=== PATIENT | male | born 1985 | race Caucasian/White ===

== ENCOUNTER 2018-05-06 01:49 | Emergency (ER) | payer MEDICARE, SELFPAY ==
[2018-05-06 01:49] VITALS: BP 195/127; PULSE 90; RESP 15; TEMP 36.7; O2SAT 95; BMI 31.6
--- NOTE | 2018-05-06 02:07 | ED.VISSUMM ---
- ER Visit Summary Date of Service: 05/06/18 Chief Complaint: [] Injury to right knee History of Present Illness: The patient is a 32 M right knee hour ago. His dog hit him from behind and he jumped to get out of the way and fell onto his right knee. He has tenderness isolated over the right knee with range of motion. He is able to walk but has pain with walking and trying to get up off the commode. No home treatment. No previous injury. Wanted to make sure it was okay Physical Examination: [] Vital signs reviewed General: Well-nourished well-developed Head: Normocephalic atraumatic Eyes: Pupils equal round and reactive to light extraocular movements intact ENT: TMs clear no hemotympanum no trauma Neck: Nontender full range of motion Cardiovascular: Regular rate rhythm no murmurs normal S1-S2 Respiratory: No distress clear to auscultation bilaterally chest nontender Abdomen: Soft nontender nondistended normal bowel sounds no masses Back: Nontender no CVA tenderness Extremities: No tenderness at rest to the right knee. Normal passive range of motion. Tenderness to the right patellar region with extreme flexion at 90? of the leg. Ligaments appear intact. No significant tenderness with stressing of the medial lateral ACL PCL. No swelling or deformity Skin: Normal color no trauma Neuro alert oriented cranial nerves II through XII intact normal strength sensation reflexes Test Results: [] Emergency Department Course and Treatment: [] Given ibuprofen. X-ray obtained of the knee. Is negative for fracture. Given Cirilo wrap. At this time I think he just bruised and sprained his knee. Of a low suspicion for ligament injury. He will follow-up as an outpatient if he continues to have pain Treatment Plan: [] Disposition: [] Impression: [] Right knee injury This note was generated with [employer] dictation software. It may contain incorrect words, spelling, and punctuation that were not noted in review of the chart prior to signing ED Disposition - Plan for ED Patient: Chief Complaint: Lower Extremity Injury Referrals: Care Physician,No Primary [Primary Care Provider] -
[2018-05-06] MEDS: Ibuprofen 600 MG Tablet PO (02:11)
--- NOTE | 2018-05-06 02:20 | RAD_ITS ---
STUDY: X-RAY - RIGHT KNEE REASON FOR EXAM: Male, 32 years old. Trauma. KNOCKED OVER BY DOG TECHNIQUE: 4 view(s) of the knee. COMPARISON: None. FINDINGS: Normal visualized distal femur. Normal visualized proximal tibia and fibula. Normal proximal tibiofibular articulation. Normal medial femorotibial compartment. Normal lateral femorotibial compartment. Normal patellofemoral articulation. The soft tissue structures are unremarkable. RAD/Knee 4 or More Views IMPRESSION: Normal x-ray examination of the knee. Electronically Signed: Kusum Haque MD at 3:16 EDT Tel , Service support ,
--- NOTE | 2018-05-06 02:38 | ED.DEP ---
ED Disposition - Plan for ED Patient: Disposition: Home or Assisted Living Chief Complaint: Lower Extremity Injury Instructions: ED Sprain Knee Referrals: Care Physician,No Primary [Primary Care Provider] - Allyssa Akins [NON-STAFF] -
[2018-05-06 02:48] VITALS: RESP 18
== END 2018-05-06 02:51 | disposition home or self-care (01) ==
PROVIDERS: Emergency Provider Emergency Medicine
DX: S89.91XA Unspecified injury of right lower leg, initial encounter (principal); E66.9 Obesity, unspecified; Z79.899 Other long term (current) drug therapy; W54.1XXA Struck by dog, initial encounter; Y93.89 Activity, other specified; Y92.89 Other specified places as the place of occurrence of the external cause; Y99.8 Other external cause status
CPT/HCPCS: 73564; 99283

== ENCOUNTER 2018-07-15 02:06 | Emergency (ER) | payer MEDICARE, SELFPAY ==
[2018-07-15 02:08] VITALS: BP 169/117; PULSE 94; RESP 18; TEMP 36.9; O2SAT 98; BMI 35.6
--- NOTE | 2018-07-15 02:49 | ED.VIS.GEN ---
History of Present Illness Chief Complaint: Sore Throat Informant: Patient Onset: Yesterday Context: Gradual Onset Timing: Continuous Quality: sore Location: entire throat, nonlateralizing Current Severity: Severe Maximum Severity: Severe Worsened by: swallowing Associated Symptoms: no fever or cough. pain radiates to both ears. no excessive fatigue. Narrative: No trouble breathing. No known sick contacts. - Past Medical History (1) HTN (hypertension) Status: Chronic (2) Pre-diabetes Status: Chronic (3) GERD (gastroesophageal reflux disease) Status: Chronic Past Medical History - Allergies and Home Meds Allergies/Adverse Reactions: Allergies latex Allergy (Verified 07/15/18 02:10) Hives lisinopril Allergy (Verified 07/15/18 02:10) Angioedema Primary Care Physician: Care Physician,No Primary [NON-STAFF] - Smoking Status: Former smoker Review of Systems General: Denies: Chills, Fever, Sweats Eyes: Denies: Visual changes - bilaterally, Diplopia ENT: Reports: Bilateral ear pain - and feeling like they are clogged, Sore throat. Denies: Rhinorrhea Cardiovascular: Denies: Chest pain Respiratory: Denies: Dyspnea, Cough Gastrointestinal: Denies: Abdominal pain, Nausea, Vomiting, Diarrhea Musculoskeletal: Reports: Neck pain - anterior sore. Denies: Back pain, Extremity Pain Skin: Denies: Rash, Wounds Physical Exam Vital Signs/Narrative: Vital Signs Temp Pulse Resp BP Pulse Ox 07/15/18 02:08 98.5 F 94 18 169/117 H 98 Inital Vital Signs reviewed: Yes General: Well nourished, Well developed Head: Normocephalic, Atraumatic Eyes: Perrl, EOMI ENT: Moist mucous membranes, No rhinorrhea, TM's clear - except effusion on right. nml EAC bilat., - - POP mildly erythemetous diffusely, no asymmetry, no exudates. no trismus. uvula midline. no stridor. Neck: Supple, - - anterior cervical/submandibular LAD and tenderness. no posterior LAD. Respiratory: No distress, Chest nontender Skin: Normal color, No rash, No Trauma Neurological: Alert, Oriented x3, Cranial nerves II-XII grossly intact, Normal Strength, Normal Sensation, Normal Gait Psychological: Normal affect Diagnostic/Tx/Re-eval - Medical Decision Making Rapid strep swab was performed by myself, and is negative. Culture is sent and pending, he is given a dose of Decadron, he states he has the means to check his blood sugar at home to ensure that it does not measurably change. Etiology is more likely viral given the test results, he is advised to follow-up as needed. Supportive care advised. ED Disposition - Plan for ED Patient: Disposition: Home or Assisted Living Chief Complaint: Sore Throat Diagnosis: Acute viral pharyngitis Instructions: ED Pharyngitis Viral Referrals: Yaakov Harrison MD [NON-STAFF] - 1 Week if not improving (or your own doctor, if you already have one)
[2018-07-15 03:37] VITALS: BP 156/105; PULSE 83; RESP 16; O2SAT 98
--- OUTSIDE RECORDS SUMMARY | 2018-09-08 18:11 | XMS RPT_ITS ---
:1985 Author Organization [facility] Care Team Providers Name Role Phone Primay Care Physicia, No Primary Care Unavailable Bryn Godinez Attending Unavailable LORETO GANN Attending Unavailable Brittnee Bush Referring Unavailable [facility]IN[facility], [facility] Primary Care Unavailable PROBLEMS PROBLEMS No Problem Records FoundPROCEDURES PROCEDURES No Procedure Records FoundRESULTS RESULTS GROUP A STREP BY Collected: 07/20/2018 Status: F Source: [place] PCR 5:19 PM [facility] REPOSITORY TYPE CODE TESTS RESULT OUT OF REFERENCE UNITS RANGE LAB GASSRC Throat Swab GAS Specimen Source LAB PCRGAS Negative for Group A Strep Group A PCR Streptococcus by PCR. Result Comment: This test was developed and its performance characteristics determined by [facility]'s Eric Roman [facility] Pathology [facility] Laboratory Medicine [place] ([facility]). It has not been cleared or approved by the FDA. [facility] is regulated under CLIA as qualified to perform high-complexity testing. This test is used for clinical purposes. It should not be regarded as inv estigational or for research. Performed By: #### GASPCR #### [facility] [address], [place] [address] PROGRESS Observed: 07/20/2018 Status: COMPLETED Source: [place] 3:11 PM [facility] REPOSITORY HNO ID: [id number] Author: Heber Dunham Service: (none) Author Type: Nurse Practitioner Type: Progress Notes Filed: 07/20/2018 3:32 PM Note Text: Subjective HPI HPI Aleksandra Taylor is a 32 year old male who presents today for CC of sore throat, ear pain. This started 1 day ago. Has tried nothing for relief. Symptoms are worsened by swallowing. Risk factors none known. Nonsmoker. Able to swallow fluids though painful. .Patient presents with: Acute Visit: sore throat with LEFT ear pain x 1 day PAST MEDICAL HISTORY Diagnosis Date - Depression - HTN (hypertension) - Schizophrenia (HCC) - Seasonal allergies PAST SURGICAL HISTORY Procedure Laterality Date - NONE ALLERGIES Latex MEDICATIONS lisinopril (PRINIVIL) 20 mg tablet Take 1 tablet by mouth twice daily. ranitidine (ZANTAC) 150 mg tablet Take 1 tablet by mouth twice daily. hydrochlorothiazide (HYDRODIURIL, ESIDRIX) 25 mg tablet Take 1 tablet by mouth once daily. perphenazine 8 mg tablet Take 1 tablet by mouth once daily. citalopram (CELEXA) 40 mg tablet Take 1 tablet by mouth once daily. albuterol HFA (VENTOLIN HFA) 90 mcg/actuation inhaler Inhale 2 Puffs as instructed every 4 hours as needed for Wheezing/Shortness of Breath. loratadine (CLARITIN) 10 mg tablet Take 1 tablet by mouth once daily. Blood Pressure Cuff - Home Use BLOOD PRESSURE CUFF FOR HOME USE. DX: LABILE BLOOD PRESSURE FAMILY HISTORY Problem Relation Age of Onset - other (fibromyalgia [Other]) Mother - Hypertension Father - other (diverticulitis [Other]) Father - other (depression [Other]) Father Social History Substance Use Topics - Smoking status: Former Smoker Packs/day: 0.25 Years: 3.00 Types: Cigarettes - Smokeless tobacco: Former User Quit date: 04/14/2012 - Alcohol use Yes Comment: occasionally Review of Systems Constitutional: Negative for chills, fever and weight loss. HENT: Positive for ear pain and sore throat. Negative for congestion and nosebleeds. Respiratory: Negative for cough, shortness of breath and wheezing. Musculoskeletal: Negative for neck pain. Skin: Negative for itching and rash. Objective Pulse 103, temperature 36.6 ?C (97.8 ?F), temperature source Left Tympanic, resp. rate 16, weight 118.2 kg (260 lb 9.6 oz), SpO2 97 %. Physical Exam Constitutional: He is oriented to person, place, and time and well-developed, well-nourished, and in no distress. Non-toxic appearance. He does not have a sickly appearance. No distress. HENT: Head: Normocephalic and atraumatic. Right Ear: Hearing, tympanic membrane, external ear and ear canal normal. Left Ear: Hearing, tympanic membrane, external ear and ear canal normal. Nose: Nose normal. Mouth/Throat: Uvula is midline and mucous membranes are normal. Posterior oropharyngeal erythema present. No oropharyngeal exudate, posterior oropharyngeal edema or tonsillar abscesses. Eyes: Pupils are equal, round, and reactive to light. Conjunctivae and lids are normal. Right eye exhibits no discharge. Left eye exhibits no discharge. No scleral icterus. Neck: Trachea normal and normal range of motion. Neck supple. Cardiovascular: Normal rate, regular rhythm and normal heart sounds. Pulmonary/Chest: Effort normal and breath sounds normal. Lymphadenopathy: He has no cervical adenopathy. Neurological: He is alert and oriented to person, place, and time. Skin: No rash noted. He is not diaphoretic. ASSESSMENT/PLAN: 1. Sore throat - ICD9: 462, ICD10: J02.9 - suspect viral - Rapid Strep negative in the office today and Throat culture pending - Discussed supportive care treatment with fluids, rest and analgesia. - The patient should follow up in 3-5 days if symptoms persist or worsen - Call back if drooling, increased temperature, symptoms of dehydration and/or still sick in one week -prednisone for severity of sore throat. - RAPID STREP TEST B/O - GROUP A STREPTOCOCCUS BY PCR - PREDNISONE 20 MG TABLET Prescription instructions reviewed with patient as applicable. Patient advised if symptoms do not improve or if symptoms worsen sooner, to contact the office for further evaluation by their primary care physician. Potential red flag symptoms discussed with the patient. Reviewed appropriate action plan to take if red flag symptoms occur. Patient agreeable to treatment plan. Heber Dunham APRN.COUNTY COURT JUDGE CNOV Observed: 07/20/2018 Status: COMPLETED Source: [place] 3:00 PM [facility] REPOSITORY [facility] ALEKSANDRA TAYLOR ([id number]) 1985 M CHT Date Time Provider Department 07/20/18 3:00 PM HEBER DUNHAM ([place]ER[place]) [facility] During your visit today, we recorded the following information about you: Temperature Pulse Respiration Weight 97.8 degrees 103/minute 16/minute 118.2 kg Heber Dunham APRN.CNP 07/20/2018 3:32 PM Signed Subjective HPI HPI Aleksandra Taylor is a 32 year old male who presents today for CC of sore throat, ear pain. This started 1 day ago. Has tried nothing for relief. Symptoms are worsened by swallowing. Risk factors none known. Nonsmoker. Able to swallow fluids though painful. .Patient presents with: Acute Visit: sore throat with LEFT ear pain x 1 day PAST MEDICAL HISTORY Diagnosis Date - Depression - HTN (hypertension) - Schizophrenia (HCC) - Seasonal allergies PAST SURGICAL HISTORY Procedure Laterality Date - NONE ALLERGIES Latex MEDICATIONS lisinopril (PRINIVIL) 20 mg tablet Take 1 tablet by mouth twice daily. ranitidine (ZANTAC) 150 mg tablet Take 1 tablet by mouth twice daily. hydrochlorothiazide (HYDRODIURIL, ESIDRIX) 25 mg tablet Take 1 tablet by mouth once daily. perphenazine 8 mg tablet Take 1 tablet by mouth once daily. citalopram (CELEXA) 40 mg tablet Take 1 tablet by mouth once daily. albuterol HFA (VENTOLIN HFA) 90 mcg/actuation inhaler Inhale 2 Puffs as instructed every 4 hours as needed for Wheezing/Shortness of Breath. loratadine (CLARITIN) 10 mg tablet Take 1 tablet by mouth once daily. Blood Pressure Cuff - Home Use BLOOD PRESSURE CUFF FOR HOME USE. DX: LABILE BLOOD PRESSURE FAMILY HISTORY Problem Relation Age of Onset - other (fibromyalgia [Other]) Mother - Hypertension Father - other (diverticulitis [Other]) Father - other (depression [Other]) Father Social History Substance Use Topics - Smoking status: Former Smoker Packs/day: 0.25 Years: 3.00 Types: Cigarettes - Smokeless tobacco: Former User Quit date: 04/14/2012 - Alcohol use Yes Comment: occasionally Review of Systems Constitutional: Negative for chills, fever and weight loss. HENT: Positive for ear pain and sore throat. Negative for congestion and nosebleeds. Respiratory: Negative for cough, shortness of breath and wheezing. Musculoskeletal: Negative for neck pain. Skin: Negative for itching and rash. Objective Pulse 103, temperature 36.6 ?C (97.8 ?F), temperature source Left Tympanic, resp. rate 16, weight 118.2 kg (260 lb 9.6 oz), SpO2 97 %. Physical Exam Constitutional: He is oriented to person, place, and time and well-developed, well-nourished, and in no distress. Non-toxic appearance. He does not have a sickly appearance. No distress. HENT: Head: Normocephalic and atraumatic. Right Ear: Hearing, tympanic membrane, external ear and ear canal normal. Left Ear: Hearing, tympanic membrane, external ear and ear canal normal. Nose: Nose normal. Mouth/Throat: Uvula is midline and mucous membranes are normal. Posterior oropharyngeal erythema present. No oropharyngeal exudate, posterior oropharyngeal edema or tonsillar abscesses. Eyes: Pupils are equal, round, and reactive to light. Conjunctivae and lids are normal. Right eye exhibits no discharge. Left eye exhibits no discharge. No scleral icterus. Neck: Trachea normal and normal range of motion. Neck supple. Cardiovascular: Normal rate, regular rhythm and normal heart sounds. Pulmonary/Chest: Effort normal and breath sounds normal. Lymphadenopathy: He has no cervical adenopathy. Neurological: He is alert and oriented to person, place, and time. Skin: No rash noted. He is not diaphoretic. ASSESSMENT/PLAN: 1. Sore throat - ICD9: 462, ICD10: J02.9 - suspect viral - Rapid Strep negative in the office today and Throat culture pending - Discussed supportive care treatment with fluids, rest and analgesia. - The patient should follow up in 3-5 days if symptoms persist or worsen - Call back if drooling, increased temperature, symptoms of dehydration and/or still sick in one week -prednisone for severity of sore throat. - RAPID STREP TEST B/O - GROUP A STREPTOCOCCUS BY PCR - PREDNISONE 20 MG TABLET Prescription instructions reviewed with patient as applicable. Patient advised if symptoms do not improve or if symptoms worsen sooner, to contact the office for further evaluation by their primary care physician. Potential red flag symptoms discussed with the patient. Reviewed appropriate action plan to take if red flag symptoms occur. Patient agreeable to treatment plan. STEPHANIE Dumont APRN.CNP 07/20/2018 3:26 PM Signed ASSESSMENT/PLAN: 1. Sore throat - ICD9: 462, ICD10: J02.9 - suspect viral - Rapid Strep negative in the office today and Throat culture pending - Discussed supportive care treatment with fluids, rest and analgesia. - The patient should follow up in 3-5 days if symptoms persist or worsen - Call back if drooling, increased temperature, symptoms of dehydration and/or still sick in one week - RAPID STREP TEST B/O - GROUP A STREPTOCOCCUS BY PCR - PREDNISONE 20 MG TABLET Referring Provider: SELF [200] Allergies As of Date: 07/20/2018 Noted Allergy Reaction LATEX 04/14/2015 4 - Hives 7 - Swelling Date Reviewed: 07/20/2018 Reviewed by: Heber (Kierra) - Fully Assessed Reason for Visit: Acute Visit [896] Cmt: sore throat with LEFT ear pain x 1 day Primary Visit Diagnosis:Sore throat [J02.9] Order(s):RAPID STREP TEST B/O [8463753] Order #: [id number] GROUP A STREPTOCOCCUS BY PCR [SQGASPCR] Order #: [id number] predniSONE (DELTASONE) 20 mg tabletTake 2 tablets by mouth once daily for 5 days.Disp: 10 tabletRfl: 0 Prescriptions as of 07/20/2018 Sig: RANITIDINE 150 MG TABLET Take 1 tablet by mouth twice * HYDROCHLOROTHIAZIDE 25 MG TAB* Take 1 tablet by mouth once d* PERPHENAZINE 8 MG TABLET Take 1 tablet by mouth once d* CITALOPRAM 40 MG TABLET Take 1 tablet by mouth once d* ALBUTEROL SULFATE HFA 90 MCG/* Inhale 2 Puffs as instructed * LORATADINE 10 MG TABLET Take 1 tablet by mouth once d* COMPOUNDED PRESCRIPTION BLOOD PRESSURE CUFF FOR HOME * PREDNISONE 20 MG TABLET Take 2 tablets by mouth once * Problem List As Of Date 07/20/2018 Noted Resolved HTN (hypertension) [I10] INVALID FOR* More... Depression, major, recurrent, mild (HCC) [F33.0]INVALID FOR* More... Schizophrenia (HCC) [F20.9] INVALID FOR* More... Obesity [E66.9] INVALID FOR* More... Asthma [J45.909] INVALID FOR* More... Other instructions from your clinician: ASSESSMENT/PLAN: 1. Sore throat - ICD9: 462, ICD10: J02.9 - suspect viral - Rapid Strep negative in the office today and Throat culture pending - Discussed supportive care treatment with fluids, rest and analgesia. - The patient should follow up in 3-5 days if symptoms persist or worsen - Call back if drooling, increased temperature, symptoms of dehydration and/or still sick in one week - RAPID STREP TEST B/O - GROUP A STREPTOCOCCUS BY PCR - PREDNISONE 20 MG TABLET Prescriptions ordered this encounter Disp Refills Start End PREDNISONE 20 MG TABLET 10 t* 0 07/20/2018 07/25/2018 Route: ORAL Sig: Take 2 tablets by mouth once daily for 5 days. Medications Discontinued During This Encounter lisinopril (PRINIVIL) 20 mg tablet 90 t* 3 06/16/2015 07/20/2018 Route: ORAL Sig: Take 1 tablet by mouth twice daily. Disc: Reason for discontinue is not on file. Encounter Status:Closed by HEBER DUNHAM CNP on 07/20/18 EMERGENCY DEPARTMENT Observed: 07/15/2018 Status: F Source: [place] SUMMARY 3:[address] [facility] REPOSITORY [facility] Medical Records Department [address] [place] [address] Emergency Department Summary 07/15/18 0249 MR#: [id number] Acct: [id number] Name: ALEKSANDRA TAYLOR Rep #: [id number] : 1985 32 From: Loreto Gann MD PCP: [facility] Status: REG ER History of Present Illness Chief Complaint: Sore Throat Informant: Patient Onset: Yesterday Context: Gradual Onset Timing: Continuous Quality: sore Location: entire throat, nonlateralizing Current Severity: Severe Maximum Severity: Severe Worsened by: swallowing Associated Symptoms: no fever or cough. pain radiates to both ears. no excessive fatigue. Narrative: No trouble breathing. No known sick contacts. - Past Medical History (1) HTN (hypertension) Status: Chronic (2) Pre-diabetes Status: Chronic (3) GERD (gastroesophageal reflux disease) Status: Chronic Past Medical History - Allergies and Home Meds Allergies/Adverse Reactions: Allergies latex Allergy (Verified 07/15/18 02:10) Hives lisinopril Allergy (Verified 07/15/18 02:10) Angioedema Primary Care Physician: Care Physician,No Primary [NON-STAFF] - Smoking Status: Former smoker Review of Systems General: Denies: Chills, Fever, Sweats Eyes: Denies: Visual changes - bilaterally, Diplopia ENT: Reports: Bilateral ear pain - and feeling like they are clogged, Sore throat. Denies: Rhinorrhea Cardiovascular: Denies: Chest pain Respiratory: Denies: Dyspnea, Cough Gastrointestinal: Denies: Abdominal pain, Nausea, Vomiting, Diarrhea Musculoskeletal: Reports: Neck pain - anterior sore. Denies: Back pain, Extremity Pain Skin: Denies: Rash, Wounds Physical Exam Vital Signs/Narrative: Vital Signs 07/15/18 02:08 98.5 F 94 18 169/117 H 98 Inital Vital Signs reviewed: Yes General: Well nourished, Well developed Head: Normocephalic, Atraumatic Eyes: Perrl, EOMI ENT: Moist mucous membranes, No rhinorrhea, TM's clear - except effusion on right. nml EAC bilat., - - POP mildly erythemetous diffusely, no asymmetry, no exudates. no trismus. uvula midline. no stridor. Neck: Supple, - - anterior cervical/submandibular LAD and tenderness. no posterior LAD. Respiratory: No distress, Chest nontender Skin: Normal color, No rash, No Trauma Neurological: Alert, Oriented x3, Cranial nerves II-XII grossly intact, Normal Strength, Normal Sensation, Normal Gait Psychological: Normal affect Diagnostic/Tx/Re-eval - Medical Decision Making Rapid strep swab was performed by myself, and is negative. Culture is sent and pending, he is given a dose of Decadron, he states he has the means to check his blood sugar at home to ensure that it does not measurably change. Etiology is more likely viral given the test results, he is advised to follow-up as needed. Supportive care advised. ED Disposition - Plan for ED Patient: Disposition: Home or Assisted Living Chief Complaint: Sore Throat Diagnosis: Acute viral pharyngitis Instructions: ED Pharyngitis Viral Referrals: Yaakov Harrison MD [NON-STAFF] - 1 Week if not improving (or your own doctor, if you already have one) What to do if you have Problems For any increased pain, shortness of breath, bleeding, nausea or vomiting, chest pain, or any unexpected problems, contact your Primary Care Provider. Call [facility] ([phone]) or report to the closest Emergency Room. Call 911 if necessary. 07/15/18 0332 <Electronically signed by Loreto Gann MD> Date Loreto Gann MD Cosigner Signature (If Indicated): Date CC: [facility] Observed: 07/15/2018 Status: F Source: [place] STREP A (THROAT 3:[address] [facility] RAPID [facility]) REPOSITORY Order Date: 07/15/18 Strep A Rapid Rapid Strep A Screen NEGATIVE A Disk (Conf. Cult) Negative for Strep Group A : All NEGATIVE screens will be confirmed with a culture. Performed By: #### [id number] #### [facility] [address] [place], [place], [address] EMERGENCY DEPARTMENT Observed: 05/06/2018 Status: F Source: [place] SUMMARY 6:[address] [facility] REPOSITORY [facility] Medical Records Department [address] [place] [address] Emergency Department Summary 05/06/18 0207 MR#: [id number] Acct: [id number] Name: ALEKSANDRA TAYLOR Rep #: [id number] : 1985 32 From: Bryn Godinez MD PCP: Care Physician, No Primary Status: DEP ER - ER Visit Summary Date of Service: 05/06/18 Chief Complaint: [] Injury to right knee History of Present Illness: The patient is a 32 M right knee hour ago. His dog hit him from behind and he jumped to get out of the way and fell onto his right knee. He has tenderness isolated over the right knee with range of motion. He is able to walk but has pain with walking and trying to get up off the commode. No home treatment. No previous injury. Wanted to make sure it was okay Physical Examination: [] Vital signs reviewed General: Well-nourished well-developed Head: Normocephalic atraumatic Eyes: Pupils equal round and reactive to light extraocular movements intact ENT: TMs clear no hemotympanum no trauma Neck: Nontender full range of motion Cardiovascular: Regular rate rhythm no murmurs normal S1-S2 Respiratory: No distress clear to auscultation bilaterally chest nontender Abdomen: Soft nontender nondistended normal bowel sounds no masses Back: Nontender no CVA tenderness Extremities: No tenderness at rest to the right knee. Normal passive range of motion. Tenderness to the right patellar region with extreme flexion at 90 of the leg. Ligaments appear intact. No significant tenderness with stressing of the medial lateral ACL PCL. No swelling or deformity Skin: Normal color no trauma Neuro alert oriented cranial nerves II through XII intact normal strength sensation reflexes Test Results: [] Emergency Department Course and Treatment: [] Given ibuprofen. X-ray obtained of the knee. Is negative for fracture. Given Cirilo wrap. At this time I think he just bruised and sprained his knee. Of a low suspicion for ligament injury. He will follow- up as an outpatient if he continues to have pain Treatment Plan: [] Disposition: [] Impression: [] Right knee injury This note was generated with [employer] dictation software. It may contain incorrect words, spelling, and punctuation that were not noted in review of the chart prior to signing ED Disposition - Plan for ED Patient: Chief Complaint: Lower Extremity Injury Referrals: Care Physician,No Primary [Primary Care Provider] - What to do if you have Problems For any increased pain, shortness of breath, bleeding, nausea or vomiting, chest pain, or any unexpected problems, contact your Primary Care Provider. Call Doctors [facility] ([phone]) or report to the closest Emergency Room. Call 911 if necessary. 05/06/18 0638 <Electronically signed by Bryn Godinez MD> Date Bryn Godinez MD Cosigner Signature (If Indicated): Date CC: No Primary Care Physician DISCHARGE INSTRUCTION Observed: 05/06/2018 Status: F Source: [place] 6:[address] [facility] REPOSITORY [facility] Medical Records Department [address] [place] [address] Discharge Instruction 05/06/18 0238 MR#: [id number] Acct: [id number] Name: ALEKSANDRA TAYLOR Rep #: [id number] : 1985 32 From: Bryn Godinez MD PCP: Care Physician, No Primary Status: DEP ER ED Disposition - Plan for ED Patient: Disposition: Home or Assisted Living Chief Complaint: Lower Extremity Injury Instructions: ED Sprain Knee Referrals: Care Physician,No Primary [Primary Care Provider] - [facility] [NON-STAFF] - What to do if you have Problems For any increased pain, shortness of breath, bleeding, nausea or vomiting, chest pain, or any unexpected problems, contact your Primary Care Provider. Call [facility] ([phone]) or report to the closest Emergency Room. Call 911 if necessary. 05/06/18 0638 <Electronically signed by Bryn Godinez MD> Date Bryn Godinez MD Cosigner Signature (If Indicated): Date CC: No Primary Care Physician KNEE 4 OR MORE Observed: 05/06/2018 Status: F Source: [place] VIEWS 2:[address] [facility] Imaging Services [address] [place] [address] Knee 4 or More Views MR#: [id number] Acct: [id number] Name: ALEKSANDRA TAYLOR Rep #: [id number] : 1985 M 32 From: Kusum Haque MD PCP: Care Physician, No Primary Status: DEP ER Study: Knee 4 or More Views Date of Exam: 05/06/18 Exam# [id number] Ordering Dr: Bryn Godinez MD STUDY: X-RAY - RIGHT KNEE REASON FOR EXAM: Male, 32 years old. Trauma. KNOCKED OVER BY DOG TECHNIQUE: 4 view(s) of the knee. COMPARISON: None. FINDINGS: Normal visualized distal femur. Normal visualized proximal tibia and fibula. Normal proximal tibiofibular articulation. Normal medial femorotibial compartment. Normal lateral femorotibial compartment. Normal patellofemoral articulation. The soft tissue structures are unremarkable. RAD/Knee 4 or More Views IMPRESSION: Normal x-ray examination of the knee. Electronically Signed: Kusum Haque MD at 3:16 EDT Tel , Service support , CC: No Primary Care Physician; Bryn Godinez MD Owner: Signed PROGRESS Observed: 01/26/2018 Status: COMPLETED Source: [place] 1:43 PM [facility] [place] REPOSITORY HNO ID: [id number] Author: Yary Morgan Cma Service: (none) Author Type: (none) Type: Progress Notes Filed: 01/26/2018 1:44 PM Note Text: I spoke with Aleksandra and he states he has a different Physician now. Dr. Sena removed as PCP. PROGRESS Observed: 01/26/2018 Status: COMPLETED Source: [place] 1:40 PM [facility] [place] REPOSITORY HNO ID: [id number] Author: Yary Morgan Cma Service: (none) Author Type: (none) Type: Progress Notes Filed: 01/26/2018 1:44 PM Note Text: PHMA TEAMLET DOCUMENTATION Provider Action/FYI: Please file labs and advise if wanting additional. PSR Action/FYI: Teamlet has identified patient by name and date of . Team: Dr. Nathen Bedoya Myself ? Last Office Visit:Visit date not found ? Next Office Visit: Visit date not found ? Last BP/Labs: Blood Pressure: Last 3 Encounter BP Readings: Date: BP: 06/16/2015 166/110[jacky bp average[ 04/14/2015 150/90 Lipids: Cholesterol, Total (mg/dL) Date Value 06/27/2015 166 HDL Cholesterol (mg/dL) Date Value 06/27/2015 29 LDL Cholesterol (mg/dL) Date Value 06/27/2015 115 LDL Chol, Jared (mg/dL) Date Value 05/27/2009 124 Triglyceride (mg/dL) Date Value 06/27/2015 112 HGB A1C: No results found for: HBA1C TSH: TSH (uIU/mL) Date Value 01/05/2016 1.74 ) Care Gap: Asthma HTN Plan: ? Confirm PCP / Status ? Type of appointment needed: Physical next available with labs prior. Labs, HM and Immunization: Health Maintenance Due: DTAP,TDAP,TD(1 - Tdap) due on 11/25/2003 Yary Morgan Cma CNPTOUTREACH Observed: 01/26/2018 Status: COMPLETED Source: [place] 12:00 AM [facility] REPOSITORY Patient Outreach ([facility]) ALEKSANDRA TAYLOR ([id number]) 1985 M CHT Date Time Provider Department 01/26/18 YARY MORGAN) [facility] During your visit today, we recorded the following information about you: Yary Morgan Cma 01/26/2018 1:44 PM Signed PHMA TEAMLET DOCUMENTATION Provider Action/FYI: Please file labs and advise if wanting additional. PSR Action/FYI: Teamlet has identified patient by name and date of . Team: Dr. Nathen Bedoya Myself ? Last Office Visit:Visit date not found ? Next Office Visit: Visit date not found ? Last BP/Labs: Blood Pressure: Last 3 Encounter BP Readings: Date: BP: 06/16/2015 166/110[jacky bp average[ 04/14/2015 150/90 Lipids: Cholesterol, Total (mg/dL) Date Value 06/27/2015 166 HDL Cholesterol (mg/dL) Date Value 06/27/2015 29 LDL Cholesterol (mg/dL) Date Value 06/27/2015 115 LDL Chol, Jared (mg/dL) Date Value 05/27/2009 124 Triglyceride (mg/dL) Date Value 06/27/2015 112 HGB A1C: No results found for: HBA1C TSH: TSH (uIU/mL) Date Value 01/05/2016 1.74 ) Care Gap: Asthma HTN Plan: ? Confirm PCP / Status ? Type of appointment needed: Physical next available with labs prior. Labs, HM and Immunization: Health Maintenance Due: DTAP,TDAP,TD(1 - Tdap) due on 11/25/2003 Yary Morgan [facility] Yary Morgan [facility] 01/26/2018 1:44 PM Signed I spoke with Aleksandra and he states he has a different Physician now. Dr. Sena removed as PCP. Allergies As of Date: 01/26/2018 Noted Allergy Reaction LATEX 04/14/2015 4 - Hives 7 - Swelling Date Reviewed: 06/16/2015 Reviewed by: Elke Allen LPN - Fully Assessed Reason for Visit: PHMA/Care Gap Outreach [[id number]] Primary Visit Diagnosis:Essential hypertension [I10] Prescriptions as of 01/26/2018 Sig: LISINOPRIL 20 MG TABLET Take 1 tablet by mouth twice * RANITIDINE 150 MG TABLET Take 1 tablet by mouth twice * HYDROCHLOROTHIAZIDE 25 MG TAB* Take 1 tablet by mouth once d* PERPHENAZINE 8 MG TABLET Take 1 tablet by mouth once d* CITALOPRAM 40 MG TABLET Take 1 tablet by mouth once d* ALBUTEROL SULFATE HFA 90 MCG/* Inhale 2 Puffs as instructed * LORATADINE 10 MG TABLET Take 1 tablet by mouth once d* COMPOUNDED PRESCRIPTION BLOOD PRESSURE CUFF FOR HOME * Problem List As Of Date 01/26/2018 Noted Resolved HTN (hypertension) [I10] INVALID FOR* More... Depression, major, recurrent, mild (HCC) [F33.0]INVALID FOR* More... Schizophrenia (HCC) [F20.9] INVALID FOR* More... Obesity [E66.9] INVALID FOR* More... Asthma [J45.909] INVALID FOR* More... Encounter Status:Closed by YARY MORGAN CMA on 01/26/18 ALLERGIES ALLERGIES DATE TYPE / CODE NAME / CODE REACTION SEVERITY SOURCE 07/15/2018 Drug lisinopril/F Angioedema Unknown [facility] Allergy/4160 [id number](RX Hospital 35836(SNOMED NORM) Repository CT) 07/15/2018 Drug latex/[id number] Hives Unknown [facility] Allergy/4160 8921(RXNORM) Hospital 11829(SNOMED Repository CT) 04/14/2015 DRUG LATEX HIVES [facility] INGREDI/4195 [facility] [address](SNOMED Repository CT) ENCOUNTERS ENCOUNTERS ADMIT/DISCHARGE ACCOUNT ADMITTING ENCOUNTER LOCATION SOURCE NUMBER CLASS 07/20/2018/07/21/20 [id number] Ambulatory [address] Repository 07/15/2018/07/15/20 [id number] Emergency [address] ing:ED Repository 05/06/2018/05/06/20 [id number] Emergency [address] ing:ED Repository PAYERS PAYERS ENCOUNTER GUARANTOR PAYER SUBSCRIBER SOURCE 07/15/2018 Aleksandra Martinez Primary Aleksandra Ortega: Jared IHMARIFER Insurance[id number] A [facility] [address]Isj: (330) Number: Repository [phone] () [id number] Date:2018-07-15 07/15/2018 Secondary NOT GIVENUNK Jared Insurance:SELF PAY [facility] Number: Effective Repository Date:2018-07-15 05/06/2018 Aleksandra Lu [id number] Primary Aleksandra Tabitha NereydaB: [place] IHRIG Insurance:[facility]ICARE [id number] [address]Pvh: [phone]) Number: Repository [phone] ) [id number] Date:2018-05-06 05/06/2018 Secondary NOT GIVENUNK [place] Insurance:SELF PAY [facility] Number: Effective Repository Date:2018-05-06
== END 2018-07-15 03:38 | disposition home or self-care (01) ==
PROVIDERS: Emergency Provider Emergency Medicine; Referring Provider Nurse Practitioner Family
DX: J02.9 Acute pharyngitis, unspecified (principal); I10 Essential (primary) hypertension; K21.9 Gastro-esophageal reflux disease without esophagitis; Z87.891 Personal history of nicotine dependence
CPT/HCPCS: 87880; 99283

== ENCOUNTER 2019-09-13 18:27 | Emergency (ER) | payer MEDICARE, SELFPAY ==
[2019-09-13] VITALS (7 sets, daily range): BP systolic 154–207; BP diastolic 107–153; PULSE 77–98; RESP 14–18; TEMP 36.2; O2SAT 97–98; BMI 35.2
--- NOTE | 2019-09-13 19:39 | ED.DCSUM_ITS ---
- ER Visit Summary Date of Service: 09/13/19 Chief Complaint: Suicidal ideation History of Present Illness: The patient is a 33 M presenting with suicidal ideation. Patient states that this has been ongoing for several weeks but worsened today. He states he is under a lot of stress and has overwhelming th oughts. He has frequent fights with his friends and family. He has auditory hallucinations telling him to kill himself. He has a history of schizophrenia. He has plan to overdose on Tylenol or cut his wrists. He did not take his blood pressure medication today. Physical Examination: Vitals are stable. Blood pressure 207/153. Patient is afebrile. Alert no acute distress. HEENT exam is unremarkable. Neck is supple. Lungs are clear and equal bilaterally. Heart is regular rate and rhythm. Abdomen is soft nontender nondistended. Extremities are unremarkable. Skin is warm and dry. No focal neurologic deficit. Depressed affect with suicidal ideation Remainder of exam is unremarkable. Emergency Department Course and Treatment: Patient was given clonidine. CBC, chemistries unremarkable. Alcohol and tox are negative. He was given his home doses of blood pressure medications. Repeat blood pressure 162/111. Discussed with social work for evaluation. Disposition: Transfer Impression: Suicidal ideation, hypertension This note was generated with [employer] dictation software. It may contain incorrect words, spelling, and punctuation that were not noted in review of the chart prior to signing ED Disposition - Plan for ED Patient: Referrals: Allyssa Romero [Primary Care Provider] -
--- NOTE | 2019-09-13 19:39 | CM.ED ---
Social Work Consult: Suicidal Ideation Informant: Dr. Smith Chief Complaint: Patient stating to be having active suicidal thoughts and to not trust self at home alone. Patient stating if patient would be at home alone to be worried of what I would do to myself. Marital/Social History: Single Living Situation: Lives with patient mother and step-father. Support/Resources: Kiki. Patient sees counselor weekly. Patient last saw counselor yesterday. History: None. Education/Employment History: Disability due to mental health issues. Has been on disability for years. Mental Health Treatment/History: Schizophrenia and Depression. Patient does not take anything to manage medication due to medical complications after taking psychiatric medications. Patient stating to have not liked the way the depression medication made patient feel. Patient stating a history of inpatient psychiatric placements and believes that last placement was in 2017. Abuse Issues: Denies Substance Abuse History: Denies any abuse/use. Risk to self/others: Patient stating to have active suicidal thoughts with plan to cut self or crush pills to overdose. Patient denies taking steps to complete plan but voicing intent. Patient denies any history of attempting suicide. Patient stating I know my signs and get help. Patient denies any history of self harm behavior. Triggers/Stressors: Patient identifying life stressors. Mental Status Exam: A&Ox3 Appearance/General Behavior: Clean/Appropriate Mood/Affect: Pleasant Communication Pattern: Responds to questions. Thought Process: Patient stating to actively hear voices that are negative in nature and tell patient to complete suicide. Assessment: Met with patient and patient mother in room. Introduced self as well as pediatric social worker role. Patient agreeable to speaking with this pediatric social worker and wanting patient mother to stay in room during assessment. Patient stating to not feel safe to self and to have come to the hospital due to not being able to manage the voices telling patient to kill self. Patient stating to typically be able to manage voices by listening to self affirming videos/audios, playing video games, reading, and playing table top games with friends. Patient stating to have support from friends and family but to now always be open with how patient is feeling. Patient admitting to also not be open with counselor on how patient is feeling either. Active support and listening provided. Waiting for medical clearance and will collaborate with Dr. Smith from there. Selma Barbosa [employer]LEMENT[employer] SCHOOL SOCIAL WORKER, FOOD SPECIALIST
[2019-09-13] MEDS: cloNIDine HCl 0.2 MG Tablet PO (19:52)
[2019-09-13 20:00] LABS: Absolute Lymphocyte Count 3.42 X10^3/uL (0.83-4.51); Absolute Neutrophil Count 5.9 X10^3/uL (2.0-7.7); Basophil# 0.08 X10^3/uL; Basophil% 0.8 % (0-1); Eosinophil# 0.23 X10^3/uL; Eosinophils% 2.2 % (0-5); Hematocrit 50.4 % (40-54); Hemoglobin 16.2 g/dL (13.0-16.5); Lymphocyte # 3.42 X10^3/ul (4.0); Lymphocyte % 32.8 % (19-41); Mean Corp Hgb Conc 32.1 g/dL (32-36); Mean Corpuscular Volume 77.9 fL (80-94); Monocyte# 0.72 X10^3/uL; Monocyte% 6.9 % (0-10); NRBC Flagged by Analyzer 0 % (0-5); Neutrophil # 5.93 X10^3/uL (2.7-7.7); Neutrophil % 56.9 % (47-70); Platelet Count 233 K/mm3 (150-450); RBC Distribution Width CV 14.6 % (11.6-14.6); RBC Distribution Width SD 39.7 fl (35.1-43.9); Red Blood Count 6.47 M/mm3 (4.6-6.2); White Blood Count 10.4 K/mm3 (4.4-11.0)
[2019-09-13 20:15] LABS: Anion Gap 6 (5-15); BUN 14 mg/dL (7-18); BUN/Creat Ratio 11.2 RATIO (10-20); Calcium,Total 9.3 mg/dL (8.5-10.1); Chloride 106 mmol/L (98-107); Creatinine, Serum 1.25 mg/dL (0.70-1.30); EST Glomerular Filtration Rate 70 mL/min (>60); Est Glom Filt Rate - Afr Amer 85 mL/min (>60); Glucose 95 mg/dL (74-106); Potassium 3.6 mmol/L (3.5-5.1); Sodium Level 138 mmol/L (136-145)
[2019-09-13 20:20] LABS: Alcohol, Blood (Medical)-Serum < 3.0 mg/dL
[2019-09-13 21:04] LABS: Amphetamine Urine VISTA NEGATIVE (<1000 ng/mL); Barbiturate Urine VISTA NEGATIVE (< 200 ng/mL); Benzodiazepine Urine VISTA NEGATIVE (< 200 ng/mL); Cocaine Urine VISTA NEGATIVE (< 300 ng/mL); Ecstacy Urine VISTA NEGATIVE (< 500 ng/mL); Methadone Urine VISTA NEGATIVE (< 300 ng/mL); PCP Urine VISTA NEGATIVE (< 25 ng/mL); THC Urine VISTA NEGATIVE (< 50 ng/mL); Vista UDS pH Range 5
--- NOTE | 2019-09-13 21:12 | CM.ED ---
Social Work Result back. Telephone call to [facility], intake. Confirming that they accept patient insurance and there are open beds. Clinical information faxed. Selma ANDRES, PETROS
[2019-09-13] MEDS: hydroCHLOROthiazide 25 MG Tablet PO (21:51)
[2019-09-13] MEDS: Losartan Potassium 50 MG Tablet PO (21:51)
[2019-09-13] MEDS: Metoprolol Tartrate 100 MG Tablet PO (21:51)
--- NOTE | 2019-09-13 22:25 | CM.ED ---
Social Work Telephone call to [facility] to check on status of referral. Intake stating to have not received referral. Confirmed fax number as [phone] (this was the number that was used prior). [facility] advising this social service agency director to resend referral. Referral resent at this time. Pending approval. Selma ANDRES, PETROS
--- NOTE | 2019-09-13 23:21 | CM.ED ---
Social Work Telephone call from [place] , referral has been received and they are reviewing clinicals at this time. Update intake that end of social work day and to call main ED with outcome. ED number provided. PETROS Solis
[2019-09-14] VITALS (9 sets, daily range): BP systolic 142–162; BP diastolic 100–111; PULSE 72–78; RESP 14–18; O2SAT 97–99
[2019-09-14] MEDS: cloNIDine HCl 0.2 MG Tablet PO (00:34)
== END 2019-09-14 08:01 ==
PROVIDERS: Emergency Provider Emergency Medicine
DX: R45.851 Suicidal ideations (principal); I10 Essential (primary) hypertension; Z79.899 Other long term (current) drug therapy
CPT/HCPCS: 36415; 80048; 80307; 80320; 85025; 99285; G0480

== ENCOUNTER 2020-02-09 19:19 | Emergency (ER) | payer MEDICARE, MEDICAID, SELFPAY ==
[2019-09-13 18:28] VITALS: BMI 35.2
[2020-02-09 19:20] VITALS: BP 156/102; PULSE 89; RESP 15; TEMP 36.7; O2SAT 97; BMI 36.3
--- NOTE | 2020-02-09 19:44 | ED.VIS.PSYCH ---
History of Present Illness Chief Complaint: Suicidal Informant: Patient Onset: Days - several Context: Gradual Onset Conflict: Family Timing: Continuous Current Severity: Severe Maximum Severity: Severe Worsened by: Situational factors Associated Symptoms: Depressed, Change in sleeping, Guilt, Decreased Concentration, Hopelessness, Suicidal Thoughts. Negative for: Visual Hallucinations, Auditory Hallucinations Specific plan (suicidal thought): cut wrist Narrative: Patient states he is a bipolar patient takes his medication, and has been tasked with caring for his grandmother who has leukemia for this past week. He has not cared for her for 1 week yet, but in that amount of time he is getting no sleep, he states he is getting no break, no one else is helping him, and she is living with him. He told his family that he cannot mentally handle this, however they made me do it anyway. At this time since he is here to the hospital, his mother and [id number] are taking care of her, but they will make me do it if I go back home. He states last night he was considering slitting his wrist, he had a knife in his hand but did not do it. He was also having thoughts of harming her and he feels guilty for that. He states even if he goes home now, he is still considering harming himself and states that he is emotionally unstable. He denies doing any alcohol or illicit drugs. Denies any recent illnesses or physical symptoms at this time. - Past Medical History (1) Bipolar 1 disorder Status: Chronic (2) GERD (gastroesophageal reflux disease) Status: Chronic (3) HTN (hypertension) Status: Chronic (4) Pre-diabetes Status: Chronic Past Medical History - Allergies and Home Meds Allergies/Adverse Reactions: Allergies latex Allergy (Verified 02/09/20 19:24) Hives lisinopril Allergy (Verified 02/09/20 19:24) Angioedema Primary Care Physician: Allyssa Romero [Primary Care Provider] - Smoking Status: Former smoker Alcohol: None Drugs: None Review of Systems General: Denies: Chills, Fever, Sweats Eyes: Denies: Visual changes - bilaterally, Diplopia ENT: Denies: Rhinorrhea, Sore throat Cardiovascular: Denies: Chest pain, Palpitations Respiratory: Denies: Dyspnea, Cough, Dyspnea on exertion Gastrointestinal: Denies: Abdominal pain, Nausea, Vomiting, Diarrhea, Melena, Hematochezia Genitourinary: Denies: Dysuria, Hematuria, Frequency Musculoskeletal: Denies: Back pain, Extremity Pain Skin: Denies: Rash, Wounds Neurological: Denies: Headache, Weakness, Numbness Psych: Reports: Depression, Anxiety, Suicidal thoughts, Suicidal ideations Physical Exam Vital Signs/Narrative: Vital Signs Temp Pulse Resp BP Pulse Ox 02/09/20 19:20 98.0 F 89 15 156/102 H 97 Inital Vital Signs reviewed: Yes General: Well nourished, Well developed, Obese, - - NAD Head: Normocephalic, Atraumatic Eyes: Perrl, EOMI ENT: Moist mucous membranes, No rhinorrhea Neck: Supple, Nontender Cardiovascular: Regular rate, Regular rhythm, No murmurs Respiratory: No distress, CTA bilaterally, Chest nontender Abdomen: Soft, Nontender, Nondistended, Normal bowel sounds Back: Nontender, Normal Inspection Extremities: Nontender, No Edema Skin: Normal color, No rash Neurological: Alert, Oriented x3, Cranial nerves II-XII grossly intact, Normal Strength, Normal Sensation, Normal Gait Psych: Normal Speech Pattern, Logical sequential goal directed thoughts, Good Insight, Suicidal thoughts, Homicidal thoughts, Limited Judgement. Negative for: Hallucinations, Delusions Diagnostic/Tx/Re-eval Laboratory Results 02/09/20 02/09/20 02/09/20 19:53 19:53 19:53 WBC 11.3 H RBC 5.86 Hgb 14.8 Hct 45.8 MCV 78.2 L MCH 25.3 L MCHC 32.3 RDW Std Deviation 41.0 RDW Coeff of Preston 14.9 H Plt Count 236 MPV 11.4 Immature Gran % (Auto) 0.500 Neut % (Auto) 56.6 Lymph % (Auto) 32.3 [place] % (Auto) 7.5 Eos % (Auto) 2.3 Baso % (Auto) 0.8 Absolute Neuts (auto) 6.4 Absolute Lymphs (auto) 3.66 Nucleated RBC % 0 Sodium 138 Potassium 3.6 Chloride 103 Carbon Dioxide 28.0 Anion Gap 7 BUN 21 H Creatinine 1.52 H Estim Creat Clear Calc 74.45 Est GFR (MDRD) Af Amer 67 Est GFR (MDRD) Non-Af 56 L BUN/Creatinine Ratio 13.8 Glucose 102 Calcium 9.4 Total Bilirubin 0.40 AST 18 ALT 22 Alkaline Phosphatase 55 Total Protein 8.2 Albumin 3.9 Globulin 4.3 H Albumin/Globulin Ratio 0.9 Urine Opiates Screen Urine Methadone Screen Ur Barbiturates Screen Ur Phencyclidine Scrn Ur Amphetamines Screen U Methamphetamin-MDMA U Benzodiazepines Scrn Urine Cocaine Screen U Cannabinoids Screen Ur Drug Screen Comment Ethyl Alcohol < 3.0 02/09/20 20:15 WBC RBC Hgb Hct MCV MCH MCHC RDW Std Deviation RDW Coeff of Preston Plt Count MPV Immature Gran % (Auto) Neut % (Auto) Lymph % (Auto) Berrien % (Auto) Eos % (Auto) Baso % (Auto) Absolute Neuts (auto) Absolute Lymphs (auto) Nucleated RBC % Sodium Potassium Chloride Carbon Dioxide Anion Gap BUN Creatinine Estim Creat Clear Calc Est GFR (MDRD) Af Amer Est GFR (MDRD) Non-Af BUN/Creatinine Ratio Glucose Calcium Total Bilirubin AST ALT Alkaline Phosphatase Total Protein Albumin Globulin Albumin/Globulin Ratio Urine Opiates Screen NEGATIVE Urine Methadone Screen NEGATIVE Ur Barbiturates Screen NEGATIVE Ur Phencyclidine Scrn NEGATIVE Ur Amphetamines Screen NEGATIVE U Methamphetamin-MDMA NEGATIVE U Benzodiazepines Scrn NEGATIVE Urine Cocaine Screen NEGATIVE U Cannabinoids Screen NEGATIVE Ur Drug Screen Comment Ethyl Alcohol - Rhythm Strip Rhythm Strip: Sinus Rhythm Rate: 90 Ectopy: None Labs are unremarkable, patient's exam is unremarkable and he is medically cleared for crisis evaluation. Discussed with social work. Suspect based on his answers to the questions in the HPI that he will need further psychiatric evaluation tonight. Plan is for transfer for that reason. ED Disposition - Plan for ED Patient: Disposition: Psychiatric Hospital or Unit Diagnosis: Suicidal ideation, Bipolar 1 disorder Referrals: Tito Warner,Allyssa Akins [Primary Care Provider] -
[2020-02-09 20:06] LABS: Absolute Lymphocyte Count 3.66 X10^3/uL (0.83-4.51); Absolute Neutrophil Count 6.4 X10^3/uL (2.0-7.7); Basophil# 0.09 X10^3/uL; Basophil% 0.8 % (0-1); Eosinophil# 0.26 X10^3/uL; Eosinophils% 2.3 % (0-5); Hematocrit 45.8 % (40-54); Hemoglobin 14.8 g/dL (13.0-16.5); Lymphocyte # 3.66 X10^3/ul (4.0); Lymphocyte % 32.3 % (19-41); Mean Corp Hgb Conc 32.3 g/dL (32-36); Mean Corpuscular Hgb 25.3 pg (27.0-32.0); Mean Corpuscular Volume 78.2 fL (80-94); Mean Platelet Vol. 11.4 fl (6.2-12.0); Monocyte# 0.85 X10^3/uL; Monocyte% 7.5 % (0-10); NRBC Flagged by Analyzer 0 % (0-5); Neutrophil % 56.6 % (47-70); Platelet Count 236 K/mm3 (150-450); RBC Distribution Width CV 14.9 % (11.6-14.6); Red Blood Count 5.86 M/mm3 (4.6-6.2); White Blood Count 11.3 K/mm3 (4.4-11.0)
--- NOTE | 2020-02-09 20:14 | CM.ED ---
Social Work Consult: Suicidal Informant: Dr. hSin Chief Complaint: Patient states to be overwhelmed with caring for elderly grandmother. Patient states I just can't handle it anymore. Marital/Social History: Single Living Situation: Currently living with grandmother for the past week. Was living with mother and step-father prior to living with grandmother. Support/Resources: Kiki. Active with counseling services. Follows with [facility] for psychiatric/medication management. History: None. Education/Employment: Disability due to mental health reasons. Mental Health Treatment/History: Schizoaffective, Depression, Bi-Polar. Patient states to be compliant with medications and they were helping. Patient with last psychiatric placement in August 2019 to [facility]. Triggers/Stressors: Caring for elderly grandmother. Coping Skills: Playing video games and table top games. Not able to participate in coping skills since caring for grandmother. I only get short breaks. Abuse Issues: Denies Substance Abuse/Use: Denies Risk to Self/Others: Reports thought of suicide with plan to cut wrist. Patient states to have also had a thought of harming patient grandmother, this scared me. Patient states I have never had thoughts of harming others. Patient with no history of suicide attempts. Patient states I get help before I do anything. Patient states concern of following through with suicidal thoughts. Patient states to have sat with knife and cried last night. I was shacking. Mental Status Exam: A&Ox3 Appearance/General Behavior: Clean. Overwhelmed. Tearful. Mood/Affect: Depressed. Communication Pattern: Responds to questions. Thought Process: Denies any A/V hallucinations or paranoia. Judgement: Fair Assessment: Met with patient in room. Introduced self as well as foster care social worker role. Patient is agreeable to speaking with this foster care social worker. Patient states to have been informing patient mother that I can't do this and patient mother belittles the situation and says You can do it. Patient states I can't while becoming tearful. Patient states I am not set up mentally to be a caregiver. Patient states to have not been sleeping and to be having difficulty focusing. Patient states to have been eating junk. Patient states to be overwhelmed and is presenting as such. Active support and listening provided. Patient states that patient grandmother is dependent and not able to care for self at all. Patient states that patient mother and step-father are currently caring for patient grandmother as today was to be my day off. This foster care social worker exploring option of safety in the community for patient if patient parents would begin care fo patient grandmother, patient states it would get hostile when talking about relationship with parents. Patient states they would become passive aggressive. Patient does not feel safe to self in either situation of caring for grandmother or parents starting to care for grandmother. Collaborating with Dr. Shin. Recommending inpatient psychiatric placement. PLAN: Facilitate placement. Selma ANDRES, PETROS
[2020-02-09 20:27] LABS: ALB/GLOB Ratio 0.9 RATIO (0.9-2.4); AST(SGOT) 18 U/L (15-37); Alanine Aminotransfer ALT/SGPT 22 U/L (16-61); Albumin, Serum 3.9 g/dL (3.2-5.0); Alcohol, Blood (Medical)-Serum < 3.0 mg/dL; Alkaline Phosphatase 55 U/L (45-117); Anion Gap 7 (5-15); BUN 21 mg/dL (7-18); BUN/Creat Ratio 13.8 RATIO (10-20); Calcium,Total 9.4 mg/dL (8.5-10.1); Chloride 103 mmol/L (98-107); Creatinine, Serum 1.52 mg/dL (0.70-1.30); EST Glomerular Filtration Rate 56 mL/min (>60); Est Glom Filt Rate - Afr Amer 67 mL/min (>60); Estimated Creatinine Clearance 74.45 ml/min; Globulin 4.3 g/dL (2.2-4.2); Glucose 102 mg/dL (74-106); Potassium 3.6 mmol/L (3.5-5.1); Protein, Total 8.2 g/dL (6.4-8.2); Sodium Level 138 mmol/L (136-145)
[2020-02-09 20:55] LABS: Amphetamine Urine VISTA NEGATIVE (<1000 ng/mL); Barbiturate Urine VISTA NEGATIVE (< 200 ng/mL); Benzodiazepine Urine VISTA NEGATIVE (< 200 ng/mL); Cocaine Urine VISTA NEGATIVE (< 300 ng/mL); Ecstacy Urine VISTA NEGATIVE (< 500 ng/mL); Methadone Urine VISTA NEGATIVE (< 300 ng/mL); PCP Urine VISTA NEGATIVE (< 25 ng/mL); THC Urine VISTA NEGATIVE (< 50 ng/mL); Vista UDS pH Range 5
--- NOTE | 2020-02-09 21:06 | CM.ED ---
Social Work Telephone call to [place] , Intake. Referral faxed. Pending review. Selma ANDRES, PETROS
--- NOTE | 2020-02-09 21:37 | CM.ED ---
Social Work Telephone call to [facility], intake. Updated that it is end of Social work shift and provided [facility] with main ED number without come. Updated medical team. Semla Barbosa MSW, PETROS
[2020-02-09 22:22] VITALS: BP 162/99; PULSE 73; RESP 16; TEMP 36.3; O2SAT 96
[2020-02-09] MEDS: LURASIDONE HCL 40 MG TABLET PO (23:30)
[2020-02-09 23:32] VITALS: RESP 14
--- NOTE | 2020-02-10 00:13 | ED.RN ---
REPORT CALLED TO HENRRY BRAN AT 1659 ACCEPTED BY [facility]AREN KIRBY. INTAKE WAS UPDATED AT 0013 THAT THE PT WOULD NOT HAVE A RIDE UNTIL 729. MILL MANAGER VERBALIZES UNDERSTANDING.
[2020-02-10 01:19] VITALS: RESP 16
[2020-02-10 02:51] VITALS: BP 175/105; PULSE 69; RESP 18; TEMP 36.6; O2SAT 97
[2020-02-10 03:00] VITALS: RESP 15
[2020-02-10 04:00] VITALS: RESP 15
[2020-02-10 07:00] VITALS: RESP 15
[2020-02-10 07:40] VITALS: BP 172/90; PULSE 88; RESP 18; O2SAT 98
== END 2020-02-10 07:51 ==
PROVIDERS: Emergency Provider Emergency Medicine
DX: F31.9 Bipolar disorder, unspecified (principal); R45.851 Suicidal ideations; K21.9 Gastro-esophageal reflux disease without esophagitis; I10 Essential (primary) hypertension; R73.03 Prediabetes; Z79.84 Long term (current) use of oral hypoglycemic drugs; Z79.899 Other long term (current) drug therapy; Z87.891 Personal history of nicotine dependence
CPT/HCPCS: 80053; 80307; 80320; 85025; 99284; G0480

== ENCOUNTER → 2020-09-17 09:32 | Outpatient (CLI) | payer MEDICARE, SELFPAY ==
[2020-09-17 10:43] LABS: Absolute Lymphocyte Count 2.66 X10^3/uL (0.83-4.51); Absolute Neutrophil Count 5.9 X10^3/uL (2.0-7.7); Basophil# 0.07 X10^3/uL; Basophil% 0.7 % (0-1); Eosinophil# 0.16 X10^3/uL; Eosinophils% 1.7 % (0-5); Hemoglobin 15.6 g/dL (13.0-16.5); Lymphocyte # 2.66 X10^3/ul (4.0); Lymphocyte % 28.4 % (19-41); Mean Corp Hgb Conc 31.8 g/dL (32-36); Mean Corpuscular Hgb 24.5 pg (27.0-32.0); Mean Corpuscular Volume 76.8 fL (80-94); Mean Platelet Vol. 12.1 fl (6.2-12.0); Monocyte# 0.54 X10^3/uL; Monocyte% 5.8 % (0-10); NRBC Flagged by Analyzer 0 % (0-5); Neutrophil # 5.92 X10^3/uL (2.7-7.7); Neutrophil % 63.2 % (47-70); Platelet Count 188 K/mm3 (150-450); RBC Distribution Width CV 14.7 % (11.6-14.6); RBC Distribution Width SD 40.7 fl (35.1-43.9); Red Blood Count 6.38 M/mm3 (4.6-6.2); White Blood Count 9.4 K/mm3 (4.4-11.0)
[2020-09-17 11:03] LABS: Hemoglobin A1c 6.6 % (3.8-5.6)
[2020-09-17 11:19] LABS: ALB/GLOB Ratio 0.9 RATIO (0.9-2.4); AST(SGOT) 12 U/L (15-37); Alanine Aminotransfer ALT/SGPT 26 U/L (16-61); Albumin, Serum 3.7 g/dL (3.2-5.0); Alkaline Phosphatase 64 U/L (45-117); Anion Gap 8 (5-15); BUN 17 mg/dL (7-18); BUN/Creat Ratio 12.8 RATIO (10-20); Calcium,Total 9.2 mg/dL (8.5-10.1); Chloride 104 mmol/L (98-107); Cholesterol 195 mg/dL (200); Creatinine, Serum 1.33 mg/dL (0.70-1.30); EST Glomerular Filtration Rate 65 mL/min (>60); Est Glom Filt Rate - Afr Amer 78 mL/min (>60); Globulin 4.3 g/dL (2.2-4.2); Glucose 130 mg/dL (74-106); High Density Lipoprotein 31 mg/dL; Potassium 3.8 mmol/L (3.5-5.1); Sodium Level 137 mmol/L (136-145); Triglycerides 194 mg/dL; Very Low Density Lipoprotein 39 mg/dL (5-40)
== END ==
PROVIDERS: Visit Provider Family Medicine
DX: I10 Essential (primary) hypertension (principal); R73.03 Prediabetes; E78.5 Hyperlipidemia, unspecified; E55.9 Vitamin D deficiency, unspecified
CPT/HCPCS: 36415; 80053; 80061; 83036; 85025

== ENCOUNTER 2020-12-04 08:00 | Outpatient (RCR) | payer MEDICARE, SELFPAY | END 2021-01-20 23:59 | LOC: IMMUN 08:00 | PROVIDERS: Referring Provider Family Medicine; Visit Provider Family Medicine | DX: Z23 Encounter for immunization (principal) | CPT/HCPCS: 0001A; 0002A; 91300 ==

== ENCOUNTER 2021-02-02 12:28 | Emergency (ER) | payer MEDICARE, MEDICAID, SELFPAY ==
[2021-02-02 12:28] VITALS: BP 208/151; PULSE 105; RESP 18; TEMP 36.3; O2SAT 95; BMI 34.6
--- NOTE | 2021-02-02 14:32 | CT_ITS ---
STUDY: CT BRAIN WITHOUT CONTRAST REASON FOR EXAM: Male, 35 years old. headache RADIATION DOSAGE (If Supplied By Facility): CTDIvol = ( 44.99 ) mGy, DLP = ( 812.98 ) mGycm TECHNIQUE: Transaxial CT imaging of the brain was performed without administration of intravenous contrast material. Individualized dose optimization techniques were used for this CT. COMPARISON: No relevant priors. FINDINGS: Multiple transaxial computerized cuts of the brain were obtained followed by coronal and sagittal reconstruction. There is questionable area of lucency seen in the right frontal lobe measures 2.6 x 1.5 without obvious mass effect on the frontal horn for which MRI is recommended. Otherwise the ventricles are not dilated no midline shift identified. No evidence of subdural, epidural or intraparenchymal hemorrhage. The skull base and cranial vault are intact. CT/Brain/Head without Contrast IMPRESSION: Questionable area of lucency in the right frontal lobe for which MRI is needed. No evidence of hemorrhage seen.. Electronically Signed: Andrea Pitts, at 15:41 EDT Tel , Service support ,
--- NOTE | 2021-02-02 14:34 | EX.ED.DYSGE1 ---
HPI History of Present Illness Chief Complaint: Headache Narrative Narrative: Presents progressive persistent headache in the crown of his head. Denies head trauma. Photophobia occasional nausea. Denies any fevers or neck pain. He states he ran out of his blood pressure medicine approximately 10 days ago. [facility] He tried to get his refill however was told he needed to be seen an appointment cannot be made for refills. He is on metoprolol 100 mg daily, losartan 50 mg daily, hydrochlorothiazide 25 mg daily. He is a diabetic however still has medications of metformin. Similar headaches in the past. He did not have blood pressure cuff to measure his blood pressure. In triage systolic blood pressure 208/151. Denies chest pains abdominal pain vomiting or diarrhea. No photophobia. Prior similar symptoms: Yes PFSH PFSH Home Medications hydrochlorothiazide 25 mg PO DAILY 09/13/19 [History Last Taken Unknown] losartan 50 mg PO DAILY 09/13/19 [History Last Taken Unknown] metoprolol tartrate 100 mg PO DAILY 09/13/19 [History Last Taken Unknown] cetirizine 10 mg PO DAILY 02/09/20 [History Last Taken Unknown] lurasidone 40 mg PO QHS 02/09/20 [History Last Taken Unknown] metformin 500 mg PO DAILY 02/09/20 [History Last Taken Unknown] hydrochlorothiazide 25 mg PO DAILY #30 tab 02/02/21 [Rx Last Taken Unknown] losartan 50 mg PO DAILY #30 tab 02/02/21 [Rx Last Taken Unknown] metoprolol succinate [Toprol XL] 100 mg PO DAILY #30 tab 02/02/21 [Rx Last Taken Unknown] Allergy/AdvReac Type Severity Reaction Status Date / Time latex Allergy Hives Verified 02/02/21 12:31 lisinopril Allergy Angioedema Verified 02/02/21 12:31 Social History Smoking Status: Never smoker ROS ROS ED Constitutional Constitutional ED: Denies chills, fever(s) or sweats Eyes Eyes: Denies change in vision ENT ENT ED: Denies dysphagia or sore throat Cardiovascular Cardiovascular: Denies chest pain, leg edema, palpitations or racing heartbeat Respiratory/Chest Respiratory/Chest: Denies cough, dyspnea or dyspnea on exertion Gastrointestinal Gastrointestinal: Reports nausea; Denies abdominal pain, diarrhea or vomiting Genitourinary Genitourinary ED: Denies dysuria, hematuria or urinary frequency Musculoskeletal Musculoskeletal: Denies back pain, extremity pain or neck pain Integumentary Denies rash or wounds Neurologic Neurologic: Reports headache(s); Denies paresthesias or weakness EXAM Physical Exam Const Vital Signs: 02/02/21 12:28 02/02/21 18:37 02/02/21 18:42 Temperature 97.3 F L Temperature Source Temporal Pulse Rate 105 H 91 92 Respiratory Rate 18 16 200 H Blood Pressure 208/151 H 213/155 H Blood Pressure Mean 170 174 Pulse Ox 95 98 99 Oxygen Delivery Method Room Air Room Air Room Air Positive well nourished and well developed General Appearance ED: well developed and NAD HEENT Reports moist mucous membranes normocephalic and atraumatic Eyes PERRL, EOMs intact bilaterally and conjunctivae normal General Eye ED: Yes normal appearance of both eyes Neck no lymphadenopathy and supple Neck Narrative: No meningismus General: Negative for tenderness Chest Wall Chest: Negative for tenderness Resp normal respiratory effort and normal air movement Effort and Inspection: symmetric chest movement; Negative for respiratory distress Cardio regular rate, regular rhythm and no murmurs Peripheral Pulses: pulses 2+ throughout GI normal to inspection, nondistended, normoactive bowel sounds and non-tender Palpation: Negative for guarding or rebound tenderness present Back/Spine no CVA tenderness and no thoracic nor lumbar tenderness Extremity normal to inspection General Extremety ED: Negative for edema or tenderness General Extremity: Negative for edema Neuro oriented x3 and no sensory deficits noted Sensorium / Orientation: awake and alert Skin no rashes or lesions noted and no wounds MDM MDM MDM Narrative Medical decision making narrative: Patient presenting elevated blood pressure with headache symptoms. Has been off medicines for [address] brain was obtained to rule out intracranial hemorrhage which was negative however reported right frontal lucency per radiology and recommended MRI would be needed. Electrolytes obtained he has chronic renal sufficiency creatinine 1.46 stable from previous labs. Patient given his home dose blood pressure medicines metoprolol, losartan, hydrochlorothiazide. Recheck blood pressure still elevated therefore 1 dose of labetalol was given. Blood pressure systolic 180s on reevaluation. No chest pains or shortness of breath no abdominal pain. With recommended MRI studies this was obtained with and without contrast, concerns for plaque matters bilaterally concerning and compatible with multiple sclerosis. He has been having on and off headaches there is been no paresthesias or weakness. He denies family history of MS. He will be given follow-up with neurology as an outpatient. All questions were answered. Lab Data Attestation: I reviewed the patient's lab results. Labs: Laboratory Results - last 24 hr 02/02/21 15:00 Sodium 137 Potassium 3.4 L Chloride 101 Carbon Dioxide 28.0 Anion Gap 8 BUN 17 Creatinine 1.46 H Estim Creat Clear Calc 79.05 Est GFR (MDRD) Af Amer 70 Est GFR (MDRD) Non-Af 58 L BUN/Creatinine Ratio 11.6 Glucose 122 H Calcium 9.2 Total Bilirubin 0.60 AST 10 L ALT 18 Alkaline Phosphatase 72 Total Protein 7.9 Albumin 3.6 Globulin 4.3 H Albumin/Globulin Ratio 0.8 L Radiography Diagnostic Testing: Radiology Impression Brain CT 02/02/21 14:32 IMPRESSION: Questionable area of lucency in the right frontal lobe for which MRI is needed. No evidence of hemorrhage seen.. Electronically Signed: Andrea Pitts, at 15:41 EDT Tel , Service support , Brain MRI 02/02/21 16:48 IMPRESSION: Findings compatible with multiple sclerosis 1. Moderate white matter plaques are present in the bilateral periventricular and subcortical regions extending into the centrum semiovale at the apex of the skull. Moderate demyelinating plaques are also present in the bilateral thalamic lobes, right greater than left, and in the splenium and anterior aspects of the corpus callosum. No demonstrated bright diffusion signal abnormality. 2. Mild abnormal bright T2 signal in the mallet is present across the mati. 3. Faint yet diffuse increased T2 signal is also present in the folia of the bilateral cerebellar lobes. 4. No suspicious or malignant-appearing lesions are seen. 5. A centrally enhancing plaque is present in the superior and posterior aspect of the right frontal lobe, with a slight halo of hypointensity on the postcontrast study suggesting necrosis or edema. Electronically Signed: Anil Waterman MD at 19:23 EDT , Service support , Discharge Plan Triage Chief Complaint: Headache ED Provider: Trey Castanon Dx/Rx/DC Orders Clinical Impression: HTN (hypertension), Head ache, Multiple sclerosis Instructions: Understanding Multiple Sclerosis (MS), ED Headache Unspecified, ED Hypertension, Established Prescriptions: New metoprolol succinate [Toprol XL] 100 mg tablet extended release 24 hr 100 mg PO DAILY Qty: 30 RF: 0 losartan 50 mg tablet 50 mg PO DAILY Qty: 30 RF: 0 hydrochlorothiazide 25 mg tablet 25 mg PO DAILY Qty: 30 RF: 0 No Action losartan 50 MG tablet 50 mg PO DAILY RF: 0 metoprolol tartrate 50 MG tablet 100 mg PO DAILY RF: 0 hydrochlorothiazide 25 MG tablet 25 mg PO DAILY RF: 0 metformin 500 MG tablet 500 mg PO DAILY RF: 0 cetirizine 10 MG tablet 10 mg PO DAILY RF: 0 lurasidone 40 MG tablet 40 mg PO QHS RF: 0 Primary Care Provider: [facility] Referrals: Yaakov Cantu MD [STAFF PHYSICIAN] - 3-5 Days [facility] [Primary Care Provider] - 3-5 Days Activity Restrictions/Additional Instructions: MRI concerning and consistent with multiple sclerosis findings. Follow-up with neurology. Disposition Disposition: Home, self care
[2021-02-02] MEDS: Metoclopramide 10 MG/2 ML Vial IV (15:09)
[2021-02-02] MEDS: DiphenhydrAMINE 50 MG/ML Syringe 25 MG IV (15:09)
[2021-02-02 15:21] LABS: ALB/GLOB Ratio 0.8 RATIO (0.9-2.4); AST(SGOT) 10 U/L (15-37); Alanine Aminotransfer ALT/SGPT 18 U/L (16-61); Albumin, Serum 3.6 g/dL (3.2-5.0); Alkaline Phosphatase 72 U/L (45-117); Anion Gap 8 (5-15); BUN 17 mg/dL (7-18); BUN/Creat Ratio 11.6 RATIO (10-20); Calcium,Total 9.2 mg/dL (8.5-10.1); Chloride 101 mmol/L (98-107); Creatinine, Serum 1.46 mg/dL (0.70-1.30); EST Glomerular Filtration Rate 58 mL/min (>60); Est Glom Filt Rate - Afr Amer 70 mL/min (>60); Estimated Creatinine Clearance 79.05 ml/min; Globulin 4.3 g/dL (2.2-4.2); Glucose 122 mg/dL (74-106); Potassium 3.4 mmol/L (3.5-5.1); Protein, Total 7.9 g/dL (6.4-8.2); Sodium Level 137 mmol/L (136-145)
[2021-02-02] MEDS: Losartan Potassium 50 MG Tablet PO (16:45)
[2021-02-02] MEDS: hydroCHLOROthiazide 25 MG Tablet PO (16:45)
[2021-02-02] MEDS: Metoprolol(XL)Succ 100 MG Tablet PO (16:45)
--- NOTE | 2021-02-02 16:48 | MRI_ITS ---
STUDY: MRI BRAIN WITH AND WITHOUT CONTRAST REASON FOR EXAM: Male, 35 years old. right frontal lucency, headache TECHNIQUE: Standardized multiplanar fat and water weighted pulse sequences were obtained. IV 24CC DOTAREM was administered for the contrast portion of the examination. COMPARISON: Head CT dated FEBRUARY 02, 2021. Head CT dated September 15, 2016 FINDINGS: There is mild cerebral atrophy with widening of the extra-axial spaces and ventricular dilatation. Moderate white matter plaques are present in the bilateral periventricular and subcortical regions extending into the centrum semiovale at the apex of the skull. Moderate demyelinating plaques are also present in the bilateral thalamic lobes, right greater than left, and in the splenium and anterior aspects of the corpus callosum. No demonstrated bright diffusion weighted signal abnormality. Mild abnormal bright T2 signal in the mallet is present across the mati. Faint yet diffuse increased T2 signal is also present in the folia of the bilateral cerebellar lobes. No suspicious or malignant-appearing lesions are seen. A centrally enhancing plaque is present in the superior and posterior aspect of the right frontal lobe, with a slight halo of hypointensity on the postcontrast study suggesting necrosis or edema. Mild signal abnormality is also present in the central aspect of the midbrain. Normal T2* images of the brain without demonstrated susceptibility artifact. There is no demonstrated hemosiderin stain. There is no evidence of acute infarction/ischemia. There is no extra-axial fluid accumulation. Normal flow voids within the major intracranial circulation suggesting patency by spin echo criteria. Normal venous enhancement. There is no enhancing intra-axial or extra-axial abnormality. Normal sella turcica, pituitary gland, infundibular stalk, optic chiasm and hypothalamus. Normal tectal plate and pineal gland. Normal medulla. Normal cerebellum. Normal basal cisterns. Normal bilateral temporal bones. Normal bilateral internal auditory canals. No demonstrated orbital abnormality, within the constraints of a routine brain study. Normal visualized paranasal sinuses. Normal calvarium and skull base. Normal visualized soft tissue structures. Normal visualized upper cervical spine. MRI/Brain W/WO Contrast IMPRESSION: Findings compatible with multiple sclerosis 1. Moderate white matter plaques are present in the bilateral periventricular and subcortical regions extending into the centrum semiovale at the apex of the skull. Moderate demyelinating plaques are also present in the bilateral thalamic lobes, right greater than left, and in the splenium and anterior aspects of the corpus callosum. No demonstrated bright diffusion signal abnormality. 2. Mild abnormal bright T2 signal in the mallet is present across the mati. 3. Faint yet diffuse increased T2 signal is also present in the folia of the bilateral cerebellar lobes. 4. No suspicious or malignant-appearing lesions are seen. 5. A centrally enhancing plaque is present in the superior and posterior aspect of the right frontal lobe, with a slight halo of hypointensity on the postcontrast study suggesting necrosis or edema. Electronically Signed: Anil Waterman MD at 19:23 EDT , Service support ,
[2021-02-02 18:37] VITALS: PULSE 91; RESP 16; O2SAT 98
[2021-02-02 18:42] VITALS: BP 213/155; PULSE 92; RESP 200; O2SAT 99
[2021-02-02] MEDS: Labetalol 100 MG/20 ML Vial 10 MG IV (18:57)
[2021-02-02 20:50] VITALS: BP 189/93; PULSE 78; RESP 16; O2SAT 98
== END 2021-02-02 20:52 | disposition home or self-care (01) ==
PROVIDERS: Emergency Provider Emergency Medicine
DX: I10 Essential (primary) hypertension (principal); R51.9 Headache, unspecified; G35 Multiple sclerosis
CPT/HCPCS: 70450; 70553; 80048; 80053; 96374; 96375; 99284; A9575; A4216

== ENCOUNTER → 2021-02-10 12:07 | Outpatient (CLI) | payer MEDICARE, SELFPAY ==
[2021-02-02 12:28] VITALS: BMI 34.6
[2021-02-10 12:40] LABS: Absolute Lymphocyte Count 2.63 X10^3/uL (0.83-4.51); Absolute Neutrophil Count 5.3 X10^3/uL (2.0-7.7); Basophil# 0.07 X10^3/uL; Basophil% 0.8 % (0-1); Eosinophil# 0.15 X10^3/uL; Eosinophils% 1.7 % (0-5); Hematocrit 47.9 % (40-54); Hemoglobin 15.6 g/dL (13.0-16.5); Lymphocyte # 2.63 X10^3/ul (0.83-4.51); Lymphocyte % 30.2 % (19-41); Mean Corp Hgb Conc 32.6 g/dL (32-36); Mean Corpuscular Hgb 24.4 pg (27.0-32.0); Monocyte# 0.49 X10^3/uL; Monocyte% 5.6 % (0-10); NRBC Flagged by Analyzer 0 % (0-5); Neutrophil # 5.32 X10^3/uL (2.7-7.7); Neutrophil % 61.2 % (47-70); Platelet Count 254 K/mm3 (150-450); RBC Distribution Width CV 14.5 % (11.6-14.6); RBC Distribution Width SD 39.1 fl (35.1-43.9); Red Blood Count 6.39 M/mm3 (4.6-6.2); White Blood Count 8.7 K/mm3 (4.4-11.0)
[2021-02-10 13:10] LABS: Vitamin B12 295 pg/mL (211-911)
[2021-02-10 13:21] LABS: Iron 49 ug/dL (65-175); Iron Binding Capacity,Total 300 ug/dL (250-450)
[2021-02-13 09:11] LABS: Vitamin D 1,25-Dihydroxy 32.5 pg/mL (19.9-79.3)
== END ==
LOC: LAB 12:09
PROVIDERS: PCP Nurse Practitioner Adult Health; Referring Provider Nurse Practitioner Adult Health; Visit Provider Nurse Practitioner Adult Health
DX: R51.9 Headache, unspecified (principal)
CPT/HCPCS: 36415; 82607; 82652; 82746; 83540; 83550; 85025

== ENCOUNTER → 2021-03-19 14:16 | Outpatient (CLI) | payer MEDICARE, SELFPAY ==
[2021-03-19 14:08] VITALS: BMI 36.1
[2021-03-19 18:20] LABS: Erythrocyte Sedimentation Rate 21 mm/hr (0-20)
[2021-03-19 18:54] LABS: HIV - WCH Non-Reactive (Nonreactive)
[2021-03-23 15:51] LABS: ANTINUCLEAR ANTIBODIES DIRECT Negative (Negative)
[2021-03-26 12:08] LABS: Complement C3 153 mg/dL (82-167); Dilute Prothrombin Time (dPT) 38.9 sec (0.0-55.0); Dilute Russell Viper Venom 46.4 sec (0.0-47.0); PTT-LA 46.3 sec (0.0-51.9); Protein C Antigen 86 % (60-150); Thrombin Time 15.5 sec (0.0-23.0); dPT Confirm Ratio 1.13 Ratio (0.00-1.40)
[2021-03-26 13:20] LABS: Complement CH50 > 60 U/mL (>41)
[2021-03-26 13:21] LABS: Anti-Cardiolipin Ab, IgA, Qn < 9 APL U/mL (0-11); Anti-Cardiolipin Ab, IgG, Qn < 9 GPL U/mL (0-14); Anti-Cardiolipin Ab, IgM, Qn 10 MPL U/mL (0-12); Anti-Thrombin 3 AG, Immunol 81 % (72-124); Antithrombin 3 Function 93 % (75-135); Interpretation Comment: (.); Protein C, Functional 103 % (73-180); Protein S, Free 83 % (57-157); Protein S, Funtional 92 % (63-140); Protein S, Total 98 % (60-150)
== END ==
PROVIDERS: PCP Nurse Practitioner Adult Health; Referring Provider Psychiatry & Neurology Neurology; Visit Provider Psychiatry & Neurology Neurology
DX: I67.9 Cerebrovascular disease, unspecified (principal); G37.9 Demyelinating disease of central nervous system, unspecified; R73.03 Prediabetes; I63.9 Cerebral infarction, unspecified
CPT/HCPCS: 36415; 81240; 81241; 85300; 85301; 85302; 85303; 85305; 85306; 85610; 85652; 86038; 86140; 86147; 86160; 86162; 86225; 86235; 86703

== ENCOUNTER → 2021-04-01 07:25 | Outpatient (CLI) | payer MEDICARE, MEDICAID, SELFPAY ==
[2021-03-19 14:08] VITALS: BMI 36.1
--- NOTE | 2021-04-01 07:26 | MRI_ITS ---
STUDY: MRA NECK WITHOUT CONTRAST REASON FOR EXAM: Male, 35 years old. Abnormal head MRI; possible cerebrovascular dz TECHNIQUE: Source images were obtained, MIPs were performed. The study was performed unenhanced. COMPARISON: None. FINDINGS: RIGHT CAROTID ARTERIES: Normal right common carotid artery (CCA). Normal right common carotid bulb. Normal origin of the right internal carotid (ICA) artery without a hemodynamically significant stenosis. Normal visualized cervical portion of the right internal carotid artery. Normal origin of the right external carotid artery (ECA). LEFT CAROTID ARTERIES: Normal left common carotid artery (CCA). Normal left common carotid bulb. Normal origin of the left internal carotid (ICA) artery without a hemodynamically significant stenosis. Normal visualized cervical portion of the left internal carotid artery. Normal origin of the left external carotid artery (ECA). VERTEBRAL ARTERIES: Normal antegrade flow within the bilateral vertebral artery without a hemodynamically significant stenosis. MRI/MRA Neck without Contrast IMPRESSION: Normal bilateral cervical carotid and vertebral arteries. Electronically Signed: Ishmael Queen MD at 10:36 EDT Tel , Service support ,
--- NOTE | 2021-04-01 07:26 | MRI_ITS ---
STUDY: MRA OF THE HEAD WITHOUT CONTRAST REASON FOR EXAM: Male, 35 years old. Abnormal head MRI; possible cerebrovascular dz TECHNIQUE: 3-D [id number] (TOF) imaging was performed with MIPs. The study was performed unenhanced. COMPARISON: None. FINDINGS: Normal bilateral petrous carotid arteries. Normal right cavernous carotid artery with a normal supraclinoid bifurcation. Normal left cavernous carotid artery with a normal supraclinoid bifurcation. Normal right A1 segments of the anterior cerebral artery. Normal left A1 segments of the anterior cerebral artery. Normal intact anterior communicating artery (ACOM). Normal bilateral A2 segments of the anterior cerebral arteries. Normal right M1 and M2 segments of the middle cerebral arteries, with a normal M1 bifurcation. Normal left M1 and M2 segments of the middle cerebral arteries, with a normal M1 bifurcation. There is a persistent origin of the right posterior cerebral artery with absence of the P1 segment of the right posterior cerebral artery. Normal left posterior communicating artery (PCOM). Normal bilateral vertebral arteries. Normal basilar artery with a normal basilar bifurcation. The visualized bilateral superior cerebellar (SCA) arteries are normal. Normal bilateral P1, P2 and visualized P3 segments of the posterior cerebral arteries. There is no demonstrated aneurysm of the [place]. There is no major vessel occlusion or hemodynamically significant stenosis. There is no demonstrated abnormality of the visualized brain. MRI/MRA Head ONLY without Contrast IMPRESSION: Normal MRA of the head Electronically Signed: Ishmael Queen MD at 10:36 EDT Tel , Service support ,
== END ==
PROVIDERS: Referring Provider Psychiatry & Neurology Neurology; Visit Provider Psychiatry & Neurology Neurology
DX: I67.9 Cerebrovascular disease, unspecified (principal)
CPT/HCPCS: 70544; 70547

== ENCOUNTER 2021-06-06 17:23 | Inpatient (IN) | payer MEDICARE, MEDICAID, SELFPAY ==
[2021-06-06] VITALS (22 sets, daily range): BP systolic 157–225; BP diastolic 95–158; PULSE 91–122; RESP 14–26; TEMP 36.6–37.1; O2SAT 24–99; BMI 32.0; BMI 34.4
--- NOTE | 2021-06-06 18:23 | CT_ITS ---
STUDY: CT BRAIN WITHOUT CONTRAST REASON FOR EXAM: Male, 35 years old. Dizziness, hypertensive urgency RADIATION DOSAGE (If Supplied By Facility): CTDIvol = ( 44.99 ) mGy, DLP = ( 863.60 ) mGycm TECHNIQUE: Transaxial CT imaging of the brain was performed without administration of intravenous contrast material. Individualized dose optimization techniques were used for this CT. COMPARISON: 02/02/2021 FINDINGS: Normal soft tissue structures. Normal calvarium. Normal size ventricles and extra-axial spaces for the patient''s age. Increasing symmetric diminished density of the bilateral frontal lobe white matter since January 2021. Normal basal ganglia and thalami. Normal brainstem. Normal cerebellum. There is no intracranial hemorrhage. There are no findings of an acute ischemic infarction. Normal visualized paranasal sinuses. CT/Brain/Head without Contrast IMPRESSION: 1. No intracranial hemorrhage or mass effect. 2. Worsening bilateral frontal lobe white matter decreased density, correlating to suspected multiple sclerosis evident on prior MRI. Electronically Signed: Stephon Malloy MD ([place]) at 19:25 EDT , Service support ,
[2021-06-06 18:43] LABS: Mucous, Urine 0 SEEN /hpf (<or=2+); Squamous Epithelial Cells - UA 0 SEEN /hpf (0-5); White Blood Cells 0 SEEN /hpf (0-5)
[2021-06-06 18:44] LABS: Color, Urine Brown (Yellow); Glucose, Dipstick 250 mg/dl (Normal); Ketone-Dipstick 5 mg/dl (Negative); Leukocyte Esterase-Dipstick 25 /ul (Negative); Nitrite-Dipstick Negative (Negative); Occult Blood-Urine 250 /ul (Negative); Protein-Dipstick 500 mg/dl (Negative); Urine Bilirubin Dipstick Negative (Negative); Urine Clarity Turbid (Clear); Urine Urobilinogen Normal (Normal)
[2021-06-06 18:48] LABS: Absolute Lymphocyte Count 2.86 X10^3/uL (0.83-4.51); Absolute Neutrophil Count 6.7 X10^3/uL (2.0-7.7); Basophil# 0.08 X10^3/uL; Basophil% 0.7 % (0-1); Eosinophil# 0.24 X10^3/uL; Eosinophils% 2.2 % (0-5); Hematocrit 41.7 % (40-54); Hemoglobin 13.5 g/dL (13.0-16.5); Lymphocyte # 2.86 X10^3/ul (0.83-4.51); Lymphocyte % 26.6 % (19-41); Mean Corp Hgb Conc 32.4 g/dL (32-36); Mean Corpuscular Hgb 25.1 pg (27.0-32.0); Mean Corpuscular Volume 77.5 fL (80-94); Monocyte# 0.86 X10^3/uL; NRBC Flagged by Analyzer 0 % (0-5); Neutrophil # 6.66 X10^3/uL (2.7-7.7); Neutrophil % 62.1 % (47-70); Platelet Count 217 K/mm3 (150-450); RBC Distribution Width CV 14.6 % (11.6-14.6); RBC Distribution Width SD 41.1 fl (35.1-43.9); Red Blood Count 5.38 M/mm3 (4.6-6.2); White Blood Count 10.7 K/mm3 (4.4-11.0)
[2021-06-06 18:49] LABS: Bacteria RARE /hpf (None Seen); Red Blood Cells-Urine > 100 SEEN /hpf (0-5)
[2021-06-06 19:01] LABS: Anion Gap 7 (5-15); BUN 18 mg/dL (7-18); BUN/Creat Ratio 11.1 RATIO (10-20); Calcium,Total 8.8 mg/dL (8.5-10.1); Chloride 103 mmol/L (98-107); Creatinine, Serum 1.62 mg/dL (0.70-1.30); EST Glomerular Filtration Rate 51 mL/min (>60); Est Glom Filt Rate - Afr Amer 62 mL/min (>60); Estimated Creatinine Clearance 71.24 ml/min; Glucose 170 mg/dL (74-106); Potassium 3.2 mmol/L (3.5-5.1); Sodium Level 139 mmol/L (136-145)
--- NOTE | 2021-06-06 19:10 | EX.ED.DYSGE1 ---
HPI History of Present Illness Chief Complaint: Complaint Detail of Chief Complaint: Painless gross hematuria Informant: patient Onset/Context/Timing Onset: Today Context: Sudden Onset Timing: Intermittent Quality: Painless gross hematuria Location: Current Severity: Moderate Maximum Severity: Moderate Worsened by: Nothing Relieved by: Nothing Associated Symptoms Associated Symptoms: Recent sore throat and elevated blood pressure Narrative Narrative: Patient is a 35-year-old male with history of hypertension, type 2 diabetes and hypercholesterolemia who presents with painless gross hematuria. He had a recent sore throat. He was never tested for strep. He denies fever, chills night sweats. Does report mild nasal congestion. He denies cough or shortness of breath. Denies chest pain or back pain. He has problems with his balance which he believes is due to his MS. He was recently diagnosed with MS. He denies nausea or vomiting. He denies any other symptoms. Prior similar symptoms: No Recent Illness/Hospitalization: Yes (Recent diagnosis of MS) [facility] Medical History Arthritis Asthma Carpal tunnel syndrome Depression Diabetes Frequent headaches History of emotional problems History of pneumonia History of UTI Kidney stones Multiple sclerosis Seasonal allergies Home Medications atorvastatin 20 mg tablet 20 mg PO DAILY tab 03/10/21 [History Last Taken Unknown] ferrous sulfate 325 mg (65 mg iron) tablet 325 mg PO DAILY 03/10/21 [History Last Taken Unknown] loratadine 10 mg capsule 10 mg PO DAILY 03/10/21 [History Last Taken Unknown] losartan 100 mg tablet 100 mg PO DAILY tab 03/10/21 [History Last Taken Unknown] metformin 500 mg tablet 500 mg PO BID tab 03/10/21 [History Last Taken Unknown] metoprolol tartrate 100 mg tablet 100 mg PO DAILY tab 03/10/21 [History Last Taken Unknown] cholecalciferol (vitamin D3) 1,250 mcg PO MO 06/06/21 [History Last Taken Unknown] Allergy/AdvReac Type Severity Reaction Status Date / Time latex Allergy Hives Verified 06/06/21 17:42 lisinopril Allergy Angioedema Verified 06/06/21 17:42 Family History Other Myocardial infarction Social History (Updated 06/06/21 @ 19:[address] Alvin Harmon MD) household members: significant other Smoking Status: Never smoker Tobacco: How many years used: 9 how long ago did patient quit smokin-10 years ago second hand exposure: No alcohol intake: current alcohol intake frequency: holidays/special occasions only substance use type: does not use ROS ROS ED Constitutional Constitutional ED: Denies chills, fever(s), subjective, sweats or weight loss Eyes Eyes: Denies blurry vision, change in vision or diplopia ENT ENT ED: Reports sore throat; Denies ear pain or rhinorrhea Cardiovascular Cardiovascular: Denies chest pain, orthopnea, palpitations or paroxysmal nocturnal dyspnea Respiratory/Chest Respiratory/Chest: Denies cough, dyspnea, dyspnea on exertion, orthopnea, paroxysmal nocturnal dyspnea or sputum Gastrointestinal Gastrointestinal: Denies abdominal pain, constipation, diarrhea, nausea or vomiting Genitourinary Genitourinary ED: Reports hematuria; Denies dysuria or urinary frequency Musculoskeletal Musculoskeletal: Denies arthralgias, back pain, myalgias or neck pain Integumentary Denies Abrasions or rash Neurologic Neurologic: Denies headache(s), paresthesias or weakness Endocrine Endocrinology: Denies polydipsia, polyphagia or polyuria Hematologic/Lymphatic Hematologic/Lymphatic: Denies anemia, easy bleeding or easy bruising Allergic/Immunologic Allergic/Immunologic ED: Denies mouth swelling, tongue swelling or urticaria EXAM Physical Exam Const Vital Signs: 06/06/21 17:24 06/06/21 17:42 06/06/21 18:38 Temperature 97.8 F 97.8 F 98.2 F Temperature Source Temporal Temporal Oral Pulse Rate 114 H 99 91 Respiratory Rate 20 H 17 24 H Blood Pressure 223/156 H 225/158 H 197/148 H Blood Pressure Mean 178 180 164 Blood Pressure Source Blood Pressure Position Blood Pressure Location Pulse Ox 97 97 96 Oxygen Delivery Method Room Air Room Air Room Air 06/06/21 19:19 06/06/21 19:21 06/06/21 19:46 Temperature 98.4 F 98.1 F Temperature Source Temporal Oral Pulse Rate 100 102 H 110 H Respiratory Rate 16 18 26 H Blood Pressure 203/153 H 206/146 H 182/124 H Blood Pressure Mean 169 166 143 Blood Pressure Source Monitor Blood Pressure Position Semi-Fowlers Blood Pressure Location Right Arm Pulse Ox 97 24 97 Oxygen Delivery Method Room Air Nasal Cannula Room Air 06/06/21 19:47 Temperature 98.1 F Temperature Source Oral Pulse Rate 110 H Respiratory Rate 21 H Blood Pressure 182/124 H Blood Pressure Mean 143 Blood Pressure Source Monitor Blood Pressure Position Semi-Fowlers Blood Pressure Location Right Arm Pulse Ox 97 Oxygen Delivery Method Room Air Positive well nourished, well developed and obese General Appearance ED: well developed Nutritional Appearance: obese HEENT Reports TM's clear and moist mucous membranes HEENT Narrative: Slight erythema of the posterior pharynx no exudate. Head is atraumatic normocephalic. Tympanic Membrane ED: Yes TM's clear Eyes PERRL and EOMs intact bilaterally General Eye ED: Negative for pale conjunctiva or scleral icterus Neck no lymphadenopathy, supple and no JVD Neck Narrative: Trachea is midline. There is no carotid bruit. General: Negative for tenderness Resp normal respiratory effort and clear to auscultation bilaterally Effort and Inspection: Negative for pain with movement Cardio regular rate, regular rhythm, S1 normal heart sound, S2 normal heart sound and no murmurs GI normal to inspection, nondistended, normoactive bowel sounds, non-tender and non-distended GI Narrative: There is no palpable pulsatile mass. There is no abdominal bruit. Pulses in the upper and lower extremity are symmetric. Palpation: soft Back/Spine no CVA tenderness Cervical Spine: Negative for cervical spine tenderness Thoracic Spine / Upper Back: Negative for thoracic spinal tenderness or paraspinal muscle tenderness Neuro oriented x3 and no sensory deficits noted Sensorium / Orientation: alert Motor Exam: strength 5/5 throughout Psych mental status grossly normal Skin no rashes or lesions noted, no wounds and skin turgor normal MDM MDM MDM Narrative Medical decision making narrative: With painless gross hematuria this may be due to renal cyst, poststreptococcal glomerulonephritis, other renal pathology i.e. cancer. Since patient has markedly elevated high blood pressure with problems with balance this may represent hypertensive urgency versus exacerbation of his MS. He was started on a Cardene drip. Appropriate blood work was ordered to assess for endorgan injury. CT of the head was obtained to rule out intracranial bleed or stroke. CT reveals worsening white matter change in the frontal lobes which would not explain his problem with balance and gait. His pressure has improved on Cardene. His renal function has gotten slightly worse. He does have gross hematuria. This will need to be investigated once his pressure is under control and if his creatinine improves CT with IV contrast versus ultrasound. Lab Data Attestation: I reviewed the patient's lab results. Labs: Laboratory Results - last 24 hr 06/06/21 06/06/21 06/06/21 17:47 18:39 18:39 WBC 10.7 RBC 5.38 Hgb 13.5 Hct 41.7 MCV 77.5 L MCH 25.1 L MCHC 32.4 RDW Std Deviation 41.1 RDW Coeff of [place] 14.6 Plt Count 217 MPV 12.0 Immature Gran % (Auto) 0.400 Neut % (Auto) 62.1 Lymph % (Auto) 26.6 [place] % (Auto) 8.0 Eos % (Auto) 2.2 Baso % (Auto) 0.7 Absolute Neuts (auto) 6.7 Absolute Lymphs (auto) 2.86 Nucleated RBC % 0 Sodium 139 Potassium 3.2 L Chloride 103 Carbon Dioxide 29.0 Anion Gap 7 BUN 18 Creatinine 1.62 H Estim Creat Clear Calc 71.24 Est GFR (MDRD) Af Amer 62 Est GFR (MDRD) Non-Af 51 L BUN/Creatinine Ratio 11.1 Glucose 170 H Calcium 8.8 Urine Color Brown Urine Clarity Turbid Urine pH 5.0 Ur Specific [place] 1.020 Urine Protein 500 H Urine Glucose (UA) 250 H Urine Ketones 5 H Urine Occult Blood 250 H Urine Nitrite Negative Urine Bilirubin Negative Urine Urobilinogen Normal Ur Leukocyte Esterase 25 H Urine RBC > 100 SEEN Urine WBC 0 SEEN Ur Squamous Epith Cells 0 SEEN Urine Bacteria RARE Urine Mucus 0 SEEN Radiography Diagnostic Testing: Clinical Impression(s) from Imaging Studies Brain CT 06/06/21 18:23 IMPRESSION: 1. No intracranial hemorrhage or mass effect. 2. Worsening bilateral frontal lobe white matter decreased density, correlating to suspected multiple sclerosis evident on prior MRI. Electronically Signed: Stephon Malloy MD ([place]) at 19:25 EDT , Service support , EKG Initial EKG: Attestation: I personally reviewed and interpreted this EKG as follows: Interpretation: Sinus Rhythm (Normal sinus rhythm rate of 90. KS interval 202 ms. Cures duration 102 ms. QT duration 406 ms. [place]um[place] is normal. There is no ossific ST-T wave changes most likely due to LVH with strain. He also has prolonged QT interval with a QTC of 496 ms.) Critical Care Time Critical Care Time: Yes Critical care time (excluding procedures): 30-74 minutes (33 minutes), Including time spent: (History, physical, documentation, review of prior records, interpretation laboratory results, initiation of therapy), Discussing w/Patient &/or Family/Supervisor Firearms, Discussing w/Consultants and Arranging Admission or Transfer Discharge Plan Triage Chief Complaint: Complaint ED Provider: Alvin Harmon Dx/Rx/DC Orders Clinical Impression: Hypertensive emergency, Gross hematuria, End stage kidney disease, Pre-diabetes Prescriptions: No Action atorvastatin 20 mg tablet 20 mg PO DAILY RF: 0 ferrous sulfate [FeroSul] 325 mg (65 mg iron) tablet 325 mg PO DAILY RF: 0 losartan 100 mg tablet 100 mg PO DAILY RF: 0 metoprolol tartrate 100 mg tablet 100 mg PO DAILY RF: 0 loratadine 10 mg capsule 10 mg PO DAILY RF: 0 metformin 500 mg tablet 500 mg PO BID RF: 0 cholecalciferol (vitamin D3) 1,250 mcg (50,000 unit) capsule 1,250 mcg PO MO RF: 0 Primary Care Provider: [facility] Allyssa Funk Referrals: [facility] Allyssa Funk [Primary Care Provider] - Disposition Disposition: Acute Care Hospital [facility]
[2021-06-06] MEDS: Nicardipine HCl-0.9% Sod Chlor 20 MG/200 ML IV.SOLN 50 MG CONT INF (19:19)
--- NOTE | 2021-06-06 20:31 | HP.PCM.HOS_ITS ---
HPI - General General Date of Admission: 06/06/21 Date of Service: 06/06/21 Chief Complaint: Hematuria, sore throat, episode N/V, worsening balance issues. HPI Narrative The patient is a 35 y/o M w/ PMHx: Obesity, HTN, HLD, Diabetes mellitus type II, Migraine headaches, Multiple Sclerosis recently diagnosed following with neurology per his report who presents to the [facility] ED on 06/06/21 with history of recent onset 2 to 3-day history of sore throat without specific cough, mild congestion, mild bilateral temporal and posterior throbbing headache rated 2-3 out of 10 in severity with episode of nausea and emesis the evening prior with n o fevers or chills but sudden onset byron hematuria prompting ED evaluation. Patient additionally noted that his balance has been worse over the last several days compared to his baseline reporting he does have general debility and balance issues secondary to his underlying multiple sclerosis. Work-up in the ED included T 97.8, heart rate initially 114, BP initially 223/156, respiratory rate 20, 97% on room air with most recent vital signs heart rate 121, BP down to 172/112, respiratory rate 16, 99% on room air, CBC with WBC 10.7, hemoglobin 13.5, platelet 217 without marked shift, BMP with potassium 3.2, BUN/creatinine 18/1.62, glucose 170, urinalysis with protein 500, glucose 250, ketone 5, occult blood 250, negative nitrite, leukocyte esterase 25, urine RBCs greater than 100, no urine WBCs or bacteria noted, rapid strep a screen positive, CT of the head with no acute intracranial hemorrhage or mass-effect with evidence of worsening bilateral frontal lobe white matter decreased density associated with his multiple sclerosis evident on prior MRI. In the ED patient ministered IV Ro cephin and placed on cardene drip. [facility] Medical History (Updated 06/06/21 @ 22:[address] Susi Hannon MD) Arthritis Asthma Carpal tunnel syndrome Depression Diabetes Frequent headaches History of emotional problems History of pneumonia History of UTI Kidney stones Multiple sclerosis Seasonal allergies Home Medications atorvastatin 20 mg tablet 20 mg PO DAILY tab 03/10/21 [History Last Taken Unknown] ferrous sulfate 325 mg (65 mg iron) tablet 325 mg PO DAILY 03/10/21 [History Last Taken Unknown] loratadine 10 mg capsule 10 mg PO DAILY 03/10/21 [History Last Taken Unknown] losartan 100 mg tablet 100 mg PO DAILY tab 03/10/21 [History Last Taken Unknown] metformin 500 mg tablet 500 mg PO BID tab 03/10/21 [History Last Taken Unknown] metoprolol tartrate 100 mg tablet 100 mg PO DAILY tab 03/10/21 [History Last Taken Unknown] cholecalciferol (vitamin D3) 1,250 mcg PO MO 06/06/21 [History Last Taken Unknown] Allergy/AdvReac Type Severity Reaction Status Date / Time latex Allergy Hives Verified 06/06/21 17:42 lisinopril Allergy Angioedema Verified 06/06/21 17:42 Family History (Updated 06/06/21 @ 22:[address] Susi Hannon MD) Mother Hypertension Father Hypertension Other Myocardial infarction Surgical History (Updated 06/06/21 @ 22:[address] Susi Hannon MD) No history of previous surgery Social History (Updated 06/06/21 @ 22:[address] Susi Hannon MD) household members: other details: Patient lives with his mother and stepfather. Smoking Status: Former smoker Tobacco: How many years used: 9 how long ago did patient quit smoking: Quit 10 years prior, prior to this < 1 ppd. second hand exposure: No alcohol intake: current alcohol intake frequency: holidays/special occasions only substance use type: does not use ROS ROS Narrative Admission Review of Systems: CONSTITUTIONAL: No weight loss, fever, chills, + weakness or fatigue. HEENT: + Headache, sore throat, mild congestion. Eyes: No visual loss, blurred vision, double vision or yellow sclerae. Ears, Nose, Throat: No hearing loss, sneezing. SKIN: No rash or itching, lesions, wounds. CARDIOVASCULAR: No chest pain, chest pressure or chest discomfort, palpitations, edema, orthopnea, syncopal events. RESPIRATORY: No shortness of breath, cough or sputum, wheezing, hemoptysis. GASTROINTESTINAL: + anorexia, nausea with episode vomiting, No diarrhea, abdominal pain, melena, BRBPR. GENITOURINARY: + Hematuria. No dysuria, frequency, urgency or retention. NEUROLOGICAL: + headache, worsening imbalance, No specific dizziness, syncope, paralysis, numbness or tingling in the extremities, focal weakness, change in bowel or bladder control, seizure. MUSCULOSKELETAL: No muscle, back pain, joint pain or stiffness. HEMATOLOGIC: + anemia, bleeding or bruising. LYMPHATICS: No enlarged nodes. No history of splenectomy. PSYCHIATRIC: + history of depression or anxiety. ENDOCRINOLOGIC: No reports of sweating, cold or heat intolerance. No polyuria or polydipsia. ALLERGIES: No history of asthma, hives, eczema or rhinitis. Vital Signs Vital Signs Vital Signs: 06/06/21 17:24 06/06/21 17:42 06/06/21 18:38 Temperature 97.8 F 97.8 F 98.2 F Temperature Source Temporal Temporal Oral Pulse Rate 114 H 99 91 Respiratory Rate 20 H 17 24 H Blood Pressure 223/156 H 225/158 H 197/148 H Blood Pressure Mean 178 180 164 Blood Pressure Source Blood Pressure Position Blood Pressure Location Pulse Ox 97 97 96 Oxygen Delivery Method Room Air Room Air Room Air 06/06/21 19:19 06/06/21 19:21 06/06/21 19:46 Temperature 98.4 F 98.1 F Temperature Source Temporal Oral Pulse Rate 100 102 H 110 H Respiratory Rate 16 18 26 H Blood Pressure 203/153 H 206/146 H 182/124 H Blood Pressure Mean 169 166 143 Blood Pressure Source Monitor Blood Pressure Position Semi-Fowlers Blood Pressure Location Right Arm Pulse Ox 97 24 97 Oxygen Delivery Method Room Air Nasal Cannula Room Air 06/06/21 19:47 06/06/21 20:00 Temperature 98.1 F 98.8 F Temperature Source Oral Temporal Pulse Rate 110 H 121 H Respiratory Rate 21 H 16 Blood Pressure 182/124 H 172/112 H Blood Pressure Mean 143 132 Blood Pressure Source Monitor Blood Pressure Position Semi-Fowlers Blood Pressure Location Right Arm Pulse Ox 97 99 Oxygen Delivery Method Room Air Room Air Weight Weight: 242 lb 14.4 oz Body Mass Index (BMI) 32.0 Physical Exam Narrative Physical Examination: General: Awake, alert, oriented x 3 and cooperative, seated upright in the ED bed in no apparent distress. Skin: Normal color, normal turgor, no icterus, no cyanosis. HEENT: AT/NC, EOMI, PERRLA, mildly dry MM, no carotid bruits or JVD noted, no specific exudate, erythema OP. Lungs: Diminished, greater bases, moderate effort, no rales, ronchi or wheezing. Heart: Tachycardic with regular rhythm; no gallop, rub audible. Abdomen: Soft, obese, NTTP, ND, distant normal BS, no obvious evidence of HSM. Extremities: No cyanosis, clubbing, or edema. Neurological: Patient awake, alert, oriented as noted, cognitive function intact; pupils equally reactive to light and accommodation, cranial nerves II- XII grossly normal, moving all 4 extremities, no focal deficits, strength mildly to moderately global crease, general imbalance with ambulatory attempts. Psychiatric: Affect appears fatigued, no acute evidence of depressive or anxiety feelings. Results Lab / Micro Data Result Diagrams: 06/06/21 18:39 06/06/21 18:39 Labs: Laboratory Results - last 24 hr 06/06/21 17:47: Urine Color Brown, Urine Clarity Turbid, Urine pH 5.0, Ur Specific [place] 1.020, Urine Protein 500 H, Urine Glucose (UA) 250 H, Urine Ketones 5 H, Urine Occult Blood 250 H, Urine Nitrite Negative, Urine Bilirubin Negative, Urine Urobilinogen Normal, Ur Leukocyte Esterase 25 H, Urine RBC > 100 SEEN, Urine WBC 0 SEEN, Ur Squamous Epith Cells 0 SEEN, Urine Bacteria RARE, Urine Mucus 0 SEEN 06/06/21 18:39: WBC 10.7, RBC 5.38, Hgb 13.5, Hct 41.7, MCV 77.5 L, MCH 25.1 L, MCHC 32.4, RDW Std Deviation 41.1, RDW Coeff of [place] 14.6, Plt Count 217, MPV 12.0, Immature Gran % (Auto) 0.400, Neut % (Auto) 62.1, Lymph % (Auto) 26.6, [place] % (Auto) 8.0, Eos % (Auto) 2.2, Baso % (Auto) 0.7, Absolute Neuts (auto) 6.7, Absolute Lymphs (auto) 2.86, Nucleated RBC % 0 06/06/21 18:39: Sodium 139, Potassium 3.2 L, Chloride 103, Carbon Dioxide 29.0, Anion Gap 7, BUN 18, Creatinine 1.62 H, Estim Creat Clear Calc 71.24, Est GFR (MDRD) Af Amer 62, Est GFR (MDRD) Non-Af 51 L, BUN/Creatinine Ratio 11.1, Glucose 170 H, Calcium 8.8 Micro: Microbiology 06/06/21 18:30 Interface Orders Group A Streptococcus Rapid Screen - Final Streptococcus Group A Radiology Impression Brain CT 06/06/21 18:23 IMPRESSION: 1. No intracranial hemorrhage or mass effect. 2. Worsening bilateral frontal lobe white matter decreased density, correlating to suspected multiple sclerosis evident on prior MRI. Electronically Signed: Stephon Malloy MD ([place]) at 19:25 EDT , Service support , Assessment & Plan Assessment/Plan (1) Hypertensive urgency: (2) Acute streptococcal pharyngitis: PLAN: The patient is a 35 y/o M w/ PMHx: Obesity, HTN, HLD, Diabetes mellitus type II, Migraine headaches, Multiple Sclerosis recently diagnosed fol on license of [facility] with neurology per his report who presents to the [facility] ED on 06/06/21 with history of recent onset 2 to 3-day history of sore throat without specific cough, mild congestion, mild bilateral temporal and posterior throbbing headache rated 2-3 out of 10 in severity with episode of nausea and emesis the evening prior with no fevers or chills but sudden onset byron hematuria prompting ED evaluation. 1. Hypertensive urgency: EKG in ED with sinus rhythm with no acute evidence of ischemia, chest x-ray not performed in the ED, no cardiac enzymes performed in the ED, initiated on Cardene drip with significant BP improvement, given difficulty controlling patient's blood pressure will admit to the ICU, continue Cardene drip, consult outbound sales representative given ICU bed request, initiate serial cardiac enzymes, magnesium level would be requested, repeat EKGs as needed and will request echocardiogram, FLP in AM. We will hold off on aspirin therapy given byron hematuria but add back once improved. 2. Acute streptococcal pharyngitis infection with associated likely acute glomerular nephritis with acute hematuria as noted #3: We will initiate cefdinir with 300 mg orally twice daily, do suspect related with hematuria as noted and expect improvement following this regimen. Will have as needed agents as needed for sore throat. Unclear if this acute presentation and acute illness as well as hypertensive urgency is associated with his worsened balance issues with underlying MS. 3. Acute hematuria suspected likely secondary to acute glomerulonephritis with acute streptococcal infection: Likely etiology is acute streptococcal infection as noted, urinalysis with no obvious evidence of UTI, will continue to closely monitor and given plan treatment for acute streptococcal infection if resolved no need for urological intervention, closely monitor renal function. 4. Hypokalemia: Admission K+ 3.2, magnesium level requested, supplementation given, repeat level in AM. 5. Multiple sclerosis with worsening bilateral frontal lobe white matter decreased density on CT head: 02/02/2021 brain MRI with moderate white matter plaque present in the bilateral periventricular and subcortical regions extending to the centrum semiovale at the apex of the skull, moderate demyelinating plaques present in the bilateral thalamic lobes, right greater than left and in the splenium and anterior aspect of the corpus callosum with no demonstrated bright diffusion signal abnormality, mild abnormal bright T2 signal in the mallet present across the mati, faint diffuse increased T2 signal present in the folia of the bilateral cerebral lobes, no suspicious or malignant appearing lesions, centrally enhancing plaque present the superior posterior aspect the right frontal lobe with slight halo of hypodensity on the postcontrast study suggesting necrosis or edema. Unclear if patient's recent worsened balance is associated with progressing disease or associated with acute current presentation as noted above, will obtain MRI with and without contrast, request case management consultation as well as PT and OT assessments. Maintain on fall precautions. 6. Diabetes mellitus type II: Hold oral home regimen, continue home insulin regimen, ADA diet, accu checks w/ ISS. 7. Chronic Kidney Disease Stage III, unclear subtype: Admission BUN/Cr 18/1.62, baseline renal function 1.3-1.5 primarily, repeat BMP in AM. 8. Obesity: Weight loss and lifestyle changes encouraged. 9. Hyperlipidemia: Continue home statin regimen. AM FLP. 10. DVT prophylaxis: SCDs, hold any chemoprophylaxis given hematuria complaint. Charges/Coding Visit Charges Inpatient E&M: 44386 Init Hosp L3
[2021-06-06] MEDS: Ceftriaxone 1 GM/50 ML BAG IV (21:22)
[2021-06-06 21:52] LABS: Magnesium 2.1 mg/dL (1.6-2.6)
--- NOTE | 2021-06-06 22:01 | ECHOD_ITS ---
Reason For Study: HTN URGENCY Procedure This was a 2D Doppler, Color Flow transthoracic echocardiogram. Exam performed portable in patient room. Left Ventricle Normal LV size. Moderate concentric left ventricular hypertrophy. Left ventricular systolic function is normal. The estimated ejection fraction is 60 %. No regional wall motion abnormalities noted. Right Ventricle Normal RV size. Normal systolic function. Atria Normal left atrium. Normal right atrium. Mitral Valve Normal mitral valve. Tricuspid Valve Normal tricuspid valve. Aortic Valve Trisinus/trileaflet aortic valve. Pulmonic Valve The pulmonic valve is not well visualized. Great Vessels Normal aortic root. Pericardium/Pleural No pericardial effusion. MMode/2D Measurements & Calculations LVIDd: 5.0 cm IVSd: 1.6 cm Ao root diam: 3.4 cm LVIDs: 3.2 cm LVPWd: 1.4 cm RVDd: 3.5 cm FS: 35.8 % LAV(MOD-bp): 70.9 ml LA A4 area: 21.3 cm2 LA dimension(2D): 3.5 cm LAV(MOD-bp) Indexed: 30.4 ml/m2 LAV(MOD-sp2): 68.7 ml LAV(MOD-sp4): 68.5 ml RA A4 area: 16.2 cm2 Time Measurements MV dec time: 0.16 sec Doppler Measurements & Calculations MV E max sherman: 82.4 cm/sec Lat Peak E' Sherman: 8.2 cm/sec Med Peak E' Sherman: 5.9 cm/sec MV A max sherman: 77.0 cm/sec E/E' lat: 10.1 E/E' med: 13.9 MV E/A: 1.1 Ao V2 max: 139.6 cm/sec LV V1 max: 109.8 cm/sec PA V2 max: 97.0 cm/sec Ao max P.8 mmHg LV V1 max P.8 mmHg ECHO/Echo Complete Interpretation Summary Normal LV size. Moderate concentric left ventricular hypertrophy. Left ventricular systolic function is normal. The estimated ejection fraction is 60 %. Ordering Physician: Susi Hannon Referring Physician: [facility] Performed By: Chelo York RDCS, RVT
[2021-06-06 22:25] LABS: Bedside Glucose 123 mg/dL (70-110)
[2021-06-06] MEDS: 0.9% Saline Lock 10 ML Syringe IV (22:45)
[2021-06-06] MEDS: Potassium Chloride Oral Tablet 20 MEQ 40 MEQ PO (22:45)
[2021-06-06] MEDS: Atorvastatin Calcium 20 MG Tablet PO (22:48)
[2021-06-06] MEDS: 0.9% Normal Saline 1,000 ML 100 ML IV (22:49)
[2021-06-06] MEDS: Cefdinir 300 MG Capsule PO (22:49)
[2021-06-06 22:57] LABS: Troponin-I HS 52 pg/mL (3.0-78.0)
[2021-06-07] VITALS (29 sets, daily range): BP systolic 105–184; BP diastolic 81–110; PULSE 82–122; RESP 12–35; TEMP 36.7–37; O2SAT 91–100
[2021-06-07 00:55] LABS: Troponin-I HS 116 pg/mL (3.0-78.0)
[2021-06-07 04:46] LABS: Absolute Lymphocyte Count 3.48 X10^3/uL (0.83-4.51); Absolute Neutrophil Count 9.5 X10^3/uL (2.0-7.7); Basophil% 0.7 % (0-1); Eosinophil# 0.21 X10^3/uL; Eosinophils% 1.5 % (0-5); Hematocrit 43.1 % (40-54); Hemoglobin 14.4 g/dL (13.0-16.5); Lymphocyte # 3.48 X10^3/ul (0.83-4.51); Lymphocyte % 24.6 % (19-41); Mean Corp Hgb Conc 33.4 g/dL (32-36); Mean Corpuscular Hgb 25.8 pg (27.0-32.0); Mean Corpuscular Volume 77.1 fL (80-94); Mean Platelet Vol. 11.6 fl (6.2-12.0); Monocyte# 0.76 X10^3/uL; Monocyte% 5.4 % (0-10); NRBC Flagged by Analyzer 0 % (0-5); Neutrophil # 9.54 X10^3/uL (2.7-7.7); Neutrophil % 67.5 % (47-70); Platelet Count 195 K/mm3 (150-450); RBC Distribution Width CV 14.8 % (11.6-14.6); RBC Distribution Width SD 40.8 fl (35.1-43.9); Red Blood Count 5.59 M/mm3 (4.6-6.2); White Blood Count 14.1 K/mm3 (4.4-11.0)
[2021-06-07 05:30] LABS: ALB/GLOB Ratio 0.6 RATIO (0.9-2.4); AST(SGOT) 12 U/L (15-37); Alanine Aminotransfer ALT/SGPT 21 U/L (16-61); Albumin, Serum 3.2 g/dL (3.2-5.0); Alkaline Phosphatase 65 U/L (45-117); Anion Gap 9 (5-15); BUN 15 mg/dL (7-18); BUN/Creat Ratio 10.4 RATIO (10-20); Calcium,Total 8.9 mg/dL (8.5-10.1); Chloride 102 mmol/L (98-107); Cholesterol 164 mg/dL (200); Creatinine, Serum 1.44 mg/dL (0.70-1.30); EST Glomerular Filtration Rate 59 mL/min (>60); Est Glom Filt Rate - Afr Amer 71 mL/min (>60); Estimated Creatinine Clearance 77.84 ml/min; Globulin 5.7 g/dL (2.2-4.2); Glucose 130 mg/dL (74-106); High Density Lipoprotein 35 mg/dL; Potassium 3.2 mmol/L (3.5-5.1); Protein, Total 8.9 g/dL (6.4-8.2); Sodium Level 137 mmol/L (136-145); Triglycerides 157 mg/dL; Troponin-I HS 166 pg/mL (3.0-78.0); Very Low Density Lipoprotein 31 mg/dL (5-40)
--- NOTE | 2021-06-07 05:30 | EX.PCM.CONCC ---
Assessment & Plan Assessment/Plan (1) Acute streptococcal pharyngitis: (2) Hypertensive urgency: PLAN: RECOMMENDATIONS: 1. Continue Cardene infusion. 2. Restart home antihypertensive regimen and titrate to achieve blood pressure control. 3. Electrolyte repletion. 4. Continue antimicrobials as ordered. 5. Supplemental IV fluids can be discontinued from my perspective. 6. Encourage incentive spirometer use and mobilize patient as tolerated. IMPRESSIONS: 1. Hypertensive urgency The patient does have a baseline diagnosis of hypertension, but has noted increased stress recently. Systolic pressures were in excess of 200 mmHg upon presentation. Therefore, the patient was initiated on a Cardene infusion admitted to the ICU. The patient is without any chest pain or shortness of breath. Blood pressures are under adequate control right now. Will restart and titrate the patient's home medications to facilitate weaning the patient from the Cardene infusion. 2. Hypokalemia Electrolyte repletion as ordered. Recheck levels in the morning. 3. Streptococcal pharyngitis Continue antimicrobials as ordered to complete treatment course. 4. Recent diagnosis of MS/diabetes mellitus/chronic kidney disease/hyperlipidemia/obesity Complicates care, management, recovery and prognosis. Continue home medications as indicated. This note was generated with [employer] dictation software. It may contain incorrect words, spelling, and punctuation that were not noted in checking the note before signing. HPI Consult Data Date of Consult: 06/07/21 HPI Narrative Reason for Consultation: Hypertensive urgency HPI Narrative: The patient is a 35-year-old male, with a history as outlined below, who presented to the emergency department on June 06 with headache, malaise, nausea, emesis and hematuria. The patient has a medical history significant for hypertension, diabetes mellitus, asthma, depression, anxiety and bipolar disorder. The patient was recently evaluated by neurology at the beginning of May and was diagnosed with MS. They also felt that the patient was suffering from migraine headaches as well. The patient does report compliance with the use of his home antihypertensives, but readily admits to increased stress, both at work and with regard to his recent MS diagnosis. On presentation to the emergency department, the patient was noted to be significantly hypertensive with a presenting blood pressure of 223/156 mmHg. Initial laboratory evaluation revealed no evidence of a leukocytosis. Chemistry profile was notable for a potassium of 3.2 and creatinine of 1.62. Urine analysis was largely unremarkable. CT head revealed increasing symmetric diminished density of the bilateral frontal lobe white matter, correlating with recent MRI findings of suspected MS. Rapid strep testing was found to be positive. The patient was subsequently placed on a Cardene infusion and admitted to the medical intensive care unit for further management. [facility] Medical History Arthritis Asthma Carpal tunnel syndrome Depression Diabetes Frequent headaches History of emotional problems History of pneumonia History of UTI Kidney stones Multiple sclerosis Seasonal allergies Home Medications atorvastatin 20 mg tablet 20 mg PO DAILY tab 03/10/21 [History Last Taken 06/05/21 22:00] ferrous sulfate 325 mg (65 mg iron) tablet 325 mg PO DAILY 03/10/21 [History Last Taken 06/06/21 10:00] loratadine 10 mg capsule 10 mg PO PRN PRN 03/10/21 [History Last Taken Unknown] losartan 100 mg tablet 100 mg PO DAILY tab 03/10/21 [History Last Taken 06/06/21 10:00] metformin 500 mg tablet 500 mg PO BID tab 03/10/21 [History Last Taken 06/06/21 10:00] metoprolol tartrate 100 mg tablet 100 mg PO DAILY tab 03/10/21 [History Last Taken 06/06/21 10:00] cholecalciferol (vitamin D3) 1,250 mcg PO MO 06/06/21 [History Last Taken 06/01/21 10:00] Allergy/AdvReac Type Severity Reaction Status Date / Time latex Allergy Hives Verified 06/06/21 17:42 lisinopril Allergy Angioedema Verified 06/06/21 17:42 Family History (Updated 06/06/21 @ 22:[address] Susi Hannon MD) Mother Hypertension Father Hypertension Other Myocardial infarction Surgical History No history of previous surgery Social History (Updated 06/06/21 @ 22:[address] Susi Hannon MD) household members: other details: Patient lives with his mother and stepfather. Smoking Status: Former smoker Tobacco: How many years used: 9 how long ago did patient quit smoking: Quit 10 years prior, prior to this < 1 ppd. second hand exposure: No alcohol intake: current alcohol intake frequency: holidays/special occasions only substance use type: does not use ROS Constitutional Constitutional: Denies chills or fever(s) Eyes Eyes: Denies blurry vision or change in vision ENT HEENT: Reports dizziness, headache(s) and sore throat Cardiovascular Cardiovascular: Reports dizziness; Denies chest pain or dyspnea Respiratory/Chest Respiratory/Chest: Denies chest tightness, cough or hemoptysis Gastrointestinal Gastrointestinal: Reports nausea and vomiting; Denies diarrhea Genitourinary Genitourinary: Reports hematuria; Denies difficulty urinating Musculoskeletal Musculoskeletal: Denies arthralgias or back pain Integumentary Integumentary: Denies lesions, rash or skin ulcer Neurologic Neurologic: Denies abnormal gait or abnormal speech Psychiatric Psychiatric: Denies anxiety or depression Endocrine Endocrinology: Denies fatigue Hematologic/Lymphatic Hematologic/Lymphatic: Denies easy bleeding or easy bruising Physical Exam Const alert and no apparent distress General Appearance: cooperative Nutritional Appearance: obese HEENT normocephalic, head/scalp atraumatic and moist oral mucous membranes Eyes PERRL and EOMs intact bilaterally Neck supple General: trachea midline Chest inspection of chest normal Resp no use of accessory muscles Effort and Inspection: able to speak in complete sentences Auscultation: Negative for rales, rhonchi or wheezes Cardio S1 normal heart sound and S2 normal heart sound Rate: tachycardic GI normal to inspection, nondistended, normoactive bowel sounds Extremity no clubbing, cyanosis or edema Skin no rashes or lesions noted Neuro CN's II-XII intact bilaterally, moves all extremities and no focal motor deficits Psych cooperative and affect normal Lab / Micro Data Result Diagrams: 06/07/21 04:35 06/07/21 04:35 Labs: Laboratory Results - last 24 hr 06/06/21 17:47: Urine Color Brown, Urine Clarity Turbid, Urine pH 5.0, Ur Specific Hankinson 1.020, Urine Protein 500 H, Urine Glucose (UA) 250 H, Urine Ketones 5 H, Urine Occult Blood 250 H, Urine Nitrite Negative, Urine Bilirubin Negative, Urine Urobilinogen Normal, Ur Leukocyte Esterase 25 H, Urine RBC > 100 SEEN, Urine WBC 0 SEEN, Ur Squamous Epith Cells 0 SEEN, Urine Bacteria RARE, Urine Mucus 0 SEEN 06/06/21 18:39: WBC 10.7, RBC 5.38, Hgb 13.5, Hct 41.7, MCV 77.5 L, MCH 25.1 L, MCHC 32.4, RDW Std Deviation 41.1, RDW Coeff of Preston 14.6, Plt Count 217, MPV 12.0, Immature Gran % (Auto) 0.400, Neut % (Auto) 62.1, Lymph % (Auto) 26.6, Blanco % (Auto) 8.0, Eos % (Auto) 2.2, Baso % (Auto) 0.7, Absolute Neuts (auto) 6.7, Absolute Lymphs (auto) 2.86, Nucleated RBC % 0 06/06/21 18:39: Sodium 139, Potassium 3.2 L, Chloride 103, Carbon Dioxide 29.0, Anion Gap 7, BUN 18, Creatinine 1.62 H, Estim Creat Clear Calc 71.24, Est GFR (MDRD) Af Amer 62, Est GFR (MDRD) Non-Af 51 L, BUN/Creatinine Ratio 11.1, Glucose 170 H, Calcium 8.8 06/06/21 18:39: Magnesium 2.1 06/06/21 22:23: POC Glucose 123 H 06/06/21 22:35: Troponin I High Sens 52 06/07/21 00:29: Troponin I High Sens 116 H 06/07/21 04:35: WBC 14.1 H, RBC 5.59, Hgb 14.4, Hct 43.1, MCV 77.1 L, MCH 25.8 L, MCHC 33.4, RDW Std Deviation 40.8, RDW Coeff of Preston 14.8 H, Plt Count 195, MPV 11.6, Immature Gran % (Auto) 0.300, Neut % (Auto) 67.5, Lymph % (Auto) 24.6, Blanco % (Auto) 5.4, Eos % (Auto) 1.5, Baso % (Auto) 0.7, Absolute Neuts (auto) 9.5 H, Absolute Lymphs (auto) 3.48, Nucleated RBC % 0 Micro: Microbiology 06/06/21 18:30 Interface Orders Group A Streptococcus Rapid Screen - Final Streptococcus Group A Radiology Impression Brain CT 06/06/21 18:23 IMPRESSION: 1. No intracranial hemorrhage or mass effect. 2. Worsening bilateral frontal lobe white matter decreased density, correlating to suspected multiple sclerosis evident on prior MRI. Electronically Signed: Stephon Malloy MD ([place]) at 19:25 EDT , Service support , Charges/Coding Visit Charges Inpatient E&M: 64105 Init Hosp L3
[2021-06-07] MEDS: Aspirin 81 MG TAB.CHEW PO (08:20)
[2021-06-07] MEDS: Losartan Potassium 100 MG Tablet PO (08:21)
[2021-06-07] MEDS: Carvedilol 12.5 MG Tablet PO ×2 (08:21→20:37)
[2021-06-07] MEDS: amLODIPine 10 MG Tablet PO (08:21)
[2021-06-07] MEDS: Cefdinir 300 MG Capsule PO ×2 (08:22→20:37)
[2021-06-07] MEDS: Loratadine 10 MG Tablet PO (08:23)
[2021-06-07] MEDS: Ferrous Sulfate 325 MG Tablet PO (08:23)
--- NOTE | 2021-06-07 08:52 | PCM.PN.HOSP ---
Subjective Subjective Doing well, denies any chest pain, or shortness of breath. Blood pressure is improved with Cardene drip. Will make adjustments and hopefully wean off. Objective Data Objective Data Vital Signs: Vital Signs Temp Pulse Resp BP Pulse Ox 98.4 F 115 H 20 H 142/87 H 98 06/07/21 08:25 06/07/21 08:44 06/07/21 08:44 06/07/21 08:44 06/07/21 08:44 Oxygen Delivery Method Room Air Weight: 256 lb 2.834 oz Body Mass Index (BMI) 34.4 Intake & Output: Intake and Output for Last 24 Hours 06/06/21 06/07/21 06/08/21 03:59 03:59 03:59 Intake Total 975.00 / 1543.75 1440.83 / 1440.83 Output Total 1800 / 2500 700 / 700 Balance -825.00 / -956.25 740.83 / 740.83 Lab / Micro Data Result Diagrams: 06/07/21 04:35 06/07/21 04:35 Labs: Laboratory Results - last 24 hr 06/06/21 17:47: Urine Color Brown, Urine Clarity Turbid, Urine pH 5.0, Ur Specific Rockwell 1.020, Urine Protein 500 H, Urine Glucose (UA) 250 H, Urine Ketones 5 H, Urine Occult Blood 250 H, Urine Nitrite Negative, Urine Bilirubin Negative, Urine Urobilinogen Normal, Ur Leukocyte Esterase 25 H, Urine RBC > 100 SEEN, Urine WBC 0 SEEN, Ur Squamous Epith Cells 0 SEEN, Urine Bacteria RARE, Urine Mucus 0 SEEN 06/06/21 18:39: WBC 10.7, RBC 5.38, Hgb 13.5, Hct 41.7, MCV 77.5 L, MCH 25.1 L, MCHC 32.4, RDW Std Deviation 41.1, RDW Coeff of Preston 14.6, Plt Count 217, MPV 12.0, Immature Gran % (Auto) 0.400, Neut % (Auto) 62.1, Lymph % (Auto) 26.6, Beauregard % (Auto) 8.0, Eos % (Auto) 2.2, Baso % (Auto) 0.7, Absolute Neuts (auto) 6.7, Absolute Lymphs (auto) 2.86, Nucleated RBC % 0 06/06/21 18:39: Sodium 139, Potassium 3.2 L, Chloride 103, Carbon Dioxide 29.0, Anion Gap 7, BUN 18, Creatinine 1.62 H, Estim Creat Clear Calc 71.24, Est GFR (MDRD) Af Amer 62, Est GFR (MDRD) Non-Af 51 L, BUN/Creatinine Ratio 11.1, Glucose 170 H, Calcium 8.8 06/06/21 18:39: Magnesium 2.1 06/06/21 22:23: POC Glucose 123 H 06/06/21 22:35: Troponin I High Sens 52 06/07/21 00:29: Troponin I High Sens 116 H 06/07/21 04:35: WBC 14.1 H, RBC 5.59, Hgb 14.4, Hct 43.1, MCV 77.1 L, MCH 25.8 L, MCHC 33.4, RDW Std Deviation 40.8, RDW Coeff of Preston 14.8 H, Plt Count 195, MPV 11.6, Immature Gran % (Auto) 0.300, Neut % (Auto) 67.5, Lymph % (Auto) 24.6, Beauregard % (Auto) 5.4, Eos % (Auto) 1.5, Baso % (Auto) 0.7, Absolute Neuts (auto) 9.5 H, Absolute Lymphs (auto) 3.48, Nucleated RBC % 0 06/07/21 04:35: Sodium 137, Potassium 3.2 L, Chloride 102, Carbon Dioxide 26.0, Anion Gap 9, BUN 15, Creatinine 1.44 H, Estim Creat Clear Calc 77.84, Est GFR (MDRD) Af Amer 71, Est GFR (MDRD) Non-Af 59 L, BUN/Creatinine Ratio 10.4, Glucose 130 H, Calcium 8.9, Total Bilirubin 0.40, AST 12 L, ALT 21, Alkaline Phosphatase 65, Troponin I High Sens 166 H*, Total Protein 8.9 H, Albumin 3.2, Globulin 5.7 H, Albumin/Globulin Ratio 0.6 L, Triglycerides 157, Cholesterol 164, LDL Cholesterol 98, VLDL Cholesterol 31, HDL Cholesterol 35 L Micro: Microbiology 06/06/21 18:30 Interface Orders Group A Streptococcus Rapid Screen - Final Streptococcus Group A Radiography Diagnostic Testing: Radiology Impression Brain CT 06/06/21 18:23 IMPRESSION: 1. No intracranial hemorrhage or mass effect. 2. Worsening bilateral frontal lobe white matter decreased density, correlating to suspected multiple sclerosis evident on prior MRI. Electronically Signed: Stephon Malloy MD ([place]) at 19:25 EDT , Service support , Physical Exam Const alert, oriented x3 and no apparent distress General Appearance: cooperative HEENT normocephalic and moist oral mucous membranes Eyes PERRL, EOMs intact bilaterally and conjunctivae normal Neck supple and no JVD Resp normal respiratory effort, no retractions, no use of accessory muscles and clear to auscultation bilaterally Auscultation: Negative for crackles, rales, rhonchi or wheezes Cardio regular rate, regular rhythm, S1 normal heart sound, S2 normal heart sound and no murmurs GI soft to palpation, non-tender and non-distended; Negative for hepatosplenomegaly Extremity no clubbing, cyanosis or edema Skin no rashes or lesions noted Neuro no focal motor deficits and no sensory deficits noted Psych affect normal Appearance: appropriate Assessment & Plan Assessment/Plan (1) Hypertensive urgency: (2) Acute streptococcal pharyngitis: PLAN: 1. Hypertensive urgency: EKG in ED with sinus rhythm with no acute evidence of ischemia, chest x-ray not performed in the ED, no cardiac enzymes performed in the ED, initiated on Cardene drip with significant BP improvement, given difficulty controlling patient's blood pressure will admit to the ICU, continue Cardene drip, consult chrome cleaner given ICU bed request, initiate serial cardiac enzymes, magnesium level would be requested, repeat EKGs as needed and will request echocardiogram, FLP in AM. We will hold off on aspirin therapy given byron hematuria but add back once improved. -06/07/2021: We will transition his metoprolol to Coreg and add Norvasc and try to wean off Cardene. Echo for the morning 2. Acute streptococcal pharyngitis infection with associated likely acute glomerular nephritis with acute hematuria as noted #3: We will initiate cefdinir with 300 mg orally twice daily, do suspect related with hematuria as noted and expect improvement following this regimen. Will have as needed agents as needed for sore throat. Unclear if this acute presentation and acute illness as well as hypertensive urgency is associated with his worsened balance issues with underlying MS. 3. Acute hematuria suspected likely secondary to acute glomerulonephritis with acute streptococcal infection: Likely etiology is acute streptococcal infection as noted, urinalysis with no obvious evidence of UTI, will continue to closely monitor and given plan treatment for acute streptococcal infection if resolved no need for urological intervention, closely monitor renal function. 4. Multiple sclerosis with worsening bilateral frontal lobe white matter decreased density on CT head: 02/02/2021 brain MRI with moderate white matter plaque present in the bilateral periventricular and subcortical regions extending to the centrum semiovale at the apex of the skull, moderate demyelinating plaques present in the bilateral thalamic lobes, right greater than left and in the splenium and anterior aspect of the corpus callosum with no demonstrated bright diffusion signal abnormality, mild abnormal bright T2 signal in the mallet present across the mati, faint diffuse increased T2 signal present in the folia of the bilateral cerebral lobes, no suspicious or malignant appearing lesions, centrally enhancing plaque present the superior posterior aspect the right frontal lobe with slight halo of hypodensity on the postcontrast study suggesting necrosis or edema. Unclear if patient's recent worsened balance is associated with progressing disease or associated with acute current presentation as noted above, will obtain MRI with and without contrast, request case management consultation as well as PT and OT assessments. Maintain on fall precautions. 5. Diabetes mellitus type II: Hold oral home regimen, continue home insulin regimen, ADA diet, accu checks w/ ISS. 6. Chronic Kidney Disease Stage III, unclear subtype: Admission BUN/Cr 18/1.62, baseline renal function 1.3-1.5 primarily, repeat BMP in AM. 7. Obesity: Weight loss and lifestyle changes encouraged. 8. Hyperlipidemia: Continue home statin regimen. AM FLP. DVT: SCDs Charges/Coding Visit Charges Inpatient E&M: 67852 Subs Hosp L2
[2021-06-07] MEDS: 0.9% Normal Saline 1,000 ML 100 ML IV (08:57)
[2021-06-07] MEDS: Potassium Chloride Oral Tablet 20 MEQ 60 MEQ PO (09:12)
[2021-06-07 10:24] LABS: Troponin-I HS 152 pg/mL (3.0-78.0)
--- NOTE | 2021-06-07 11:30 | MRI_ITS ---
STUDY: MRI BRAIN WITH AND WITHOUT CONTRAST REASON FOR EXAM: Male, 35 years old. Multiple sclerosis, worsening symptoms TECHNIQUE: Standardized multiplanar fat and water weighted pulse sequences were obtained. 22 ml IV Dotarem was administered for the contrast portion of the examination. COMPARISON: 02 February 2021 FINDINGS: Diffuse multifocal white matter disease has progressed since January of current year. There is now larger regions of involvement of confluent nearly entire cerebral white matter, larger bilateral thalamic lesions and diffuse involvement of the mati with edema. There is involvement of the corpus callosum. Pontine disease extends into the right cerebellar peduncle. There is no acute infarct. None of the lesions enhance. There is no mass effect, shift or hydrocephalus. Vascular structures are normal. MRI/Brain W/WO Contrast IMPRESSION: 1. Severe progression of disease. 2. Markedly larger involvement of cerebral and brainstem white matter. 3. No enhancement. 4. This appearance is possible but not common in multiple sclerosis, consider a broader differential diagnosis such as MS variants, ADEM, PML, systemic/autoimmune related white matter disease, toxic exposure related white matter disease, etc. Electronically Signed: Michael Cooley MD at 14:39 EDT Tel , Service support ,
[2021-06-07 11:40] LABS: Bedside Glucose 150 mg/dL (70-110)
[2021-06-07 16:21] LABS: Bedside Glucose 108 mg/dL (70-110)
--- NOTE | 2021-06-07 17:01 | NURSING ---
report called to [facility] ,transferred per chair with belongings to room 125
[2021-06-07] MEDS: Atorvastatin Calcium 20 MG Tablet PO (20:37)
[2021-06-07 22:20] LABS: Bedside Glucose 129 mg/dL (70-110)
[2021-06-08 02:17] VITALS: PULSE 63
[2021-06-08 03:00] VITALS: BP 152/111; PULSE 75; RESP 15; TEMP 36.6; O2SAT 95
[2021-06-08 07:00] LABS: Bedside Glucose 122 mg/dL (70-110)
[2021-06-08 07:38] VITALS: PULSE 87
--- NOTE | 2021-06-08 08:06 | PN.CC_ITS ---
Assessment & Plan Assessment/Plan (1) Acute streptococcal pharyngitis: (2) Hypertensive urgency: PLAN: RECOMMENDATIONS: 1. Increase home Coreg 2. Restart home antihypertensive regimen and titrate to achieve blood pressure control. 3. Electrolyte repletion if indicated following morning labs. 4. Continue antimicrobials as ordered. 5. Supplemental IV fluids can be discontinued from my perspective. 6. Hemodynamically stable on room air. Will sign off from a critical care perspective IMPRESSIONS: 1. Hypertensive urgency The patient does have a baseline diagnosis of hypertension, but has noted increased stress recently. Systolic pressures were in excess of 200 mmHg upon presentation. Therefore, the patient was initiated on a Cardene infusion admitted to the ICU. The patient is without any chest pain or shortness of breath. Patient was able to be transferred from the intensive care unit following reinitiation of home medications. Will increase Coreg. No indication for continued Cardene. Will sign off from a critical care perspective. 2. Hypokalemia Electrolyte repletion as ordered. Recheck levels in the morning. 3. Streptococcal pharyngitis Continue antimicrobials as ordered to complete treatment course. 4. Recent diagnosis of MS/diabetes mellitus/chronic kidney disease/hyperlipidemia/obesity Complicates care, management, recovery and prognosis. Continue home medications as indicated. This note was generated with [employer] dictation software. It may contain incorrect words, spelling, and punctuation that were not noted in checking the note before signing. Subjective Subjective Patient did well overnight. Patient was able to be transferred from the intensive care unit. Patient is not reporting any headache or focal neurologic symptoms. Objective Data Objective Data Vital Signs: Vital Signs Temp Pulse Resp BP Pulse Ox 36.6 C 87 15 152/111 H 95 06/08/21 03:00 06/08/21 07:38 06/08/21 03:00 06/08/21 03:00 06/08/21 03:00 Oxygen Delivery Method Room Air Weight: 116.2 kg Body Mass Index (BMI) 34.4 Intake & Output: Intake and Output for Last 24 Hours 06/06/21 06/07/21 06/08/21 23:59 23:59 23:59 Intake Total 562.92 / 700.00 2896.25 / 2896.25 Output Total 3200 / 3200 Balance 562.92 / 0 -303.75 / -303.75 Lab / Micro Data Result Diagrams: 06/07/21 04:35 06/07/21 04:35 Labs: Laboratory Results - last 24 hr 06/07/21 10:00: Troponin I High Sens 152 H* 06/07/21 11:32: POC Glucose 150 H 06/07/21 16:15: POC Glucose 108 06/07/21 22:14: POC Glucose 129 H 06/08/21 06:42: POC Glucose 122 H Micro: Microbiology 06/06/21 18:30 Interface Orders Group A Streptococcus Rapid Screen - Final Streptococcus Group A Radiography Diagnostic Testing: Radiology Impression Brain MRI 06/07/21 11:30 IMPRESSION: 1. Severe progression of disease. 2. Markedly larger involvement of cerebral and brainstem white matter. 3. No enhancement. 4. This appearance is possible but not common in multiple sclerosis, consider a broader differential diagnosis such as MS variants, ADEM, PML, systemic/autoimmune related white matter disease, toxic exposure related white matter disease, etc. Electronically Signed: Michael Cooley MD at 14:39 EDT Tel , Service support , Physical Exam Const alert and no apparent distress General Appearance: cooperative Nutritional Appearance: obese HEENT normocephalic, head/scalp atraumatic and moist oral mucous membranes Eyes PERRL and EOMs intact bilaterally Neck supple General: trachea midline Chest inspection of chest normal Resp no use of accessory muscles Effort and Inspection: able to speak in complete sentences Auscultation: Negative for rales, rhonchi or wheezes Cardio S1 normal heart sound and S2 normal heart sound Rate: tachycardic GI normal to inspection, nondistended, normoactive bowel sounds Extremity no clubbing, cyanosis or edema Skin no rashes or lesions noted Neuro CN's II-XII intact bilaterally, moves all extremities and no focal motor defici ts Psych cooperative and affect normal Charges/Coding Visit Charges Inpatient E&M: 85881 Subs Hosp L2
[2021-06-08 08:21] LABS: Anion Gap 6 (5-15); BUN 21 mg/dL (7-18); Calcium,Total 9.3 mg/dL (8.5-10.1); Chloride 106 mmol/L (98-107); EST Glomerular Filtration Rate 61 mL/min (>60); Est Glom Filt Rate - Afr Amer 74 mL/min (>60); Estimated Creatinine Clearance 80.06 ml/min; Glucose 119 mg/dL (74-106); Magnesium 2.2 mg/dL (1.6-2.6); Potassium 3.9 mmol/L (3.5-5.1); Sodium Level 138 mmol/L (136-145)
[2021-06-08 09:16] VITALS: BP 155/92; PULSE 92; RESP 16; TEMP 36.6; O2SAT 96
--- NOTE | 2021-06-08 09:19 | PCS.PANDOC ---
PANDEMIC DOCUMENTATION INITIATED: Date: 03/30/2021 Time: 190
[2021-06-08] MEDS: Loratadine 10 MG Tablet PO (09:20)
[2021-06-08] MEDS: Losartan Potassium 100 MG Tablet PO (09:20)
[2021-06-08] MEDS: Ferrous Sulfate 325 MG Tablet PO (09:20)
[2021-06-08] MEDS: Aspirin 81 MG TAB.CHEW PO (09:21)
[2021-06-08] MEDS: amLODIPine 10 MG Tablet PO (09:21)
[2021-06-08] MEDS: Cefdinir 300 MG Capsule PO (09:21)
[2021-06-08] MEDS: Carvedilol 25 MG Tablet PO (09:24)
[2021-06-08 11:25] LABS: Bedside Glucose 135 mg/dL (70-110)
--- NOTE | 2021-06-08 11:30 | TELEMED_ITS ---
[facility] has confirmed receipt of a request for visit. This document confirms receipt of the order initiating the consult. To find the results of the consultation, please view the patient's reports for the scanned Telemed Consult.
--- NOTE | 2021-06-08 11:59 | CASEMGMT ---
Assessment- SW completed assessment with patient. He was sitting up in his chair and agreeable to talk with SW. SW also confirmed address and phone number as well as contacts. Living situation- Patient lives with his mom in a 2 story home with a couple entry steps. PCP: Allyssa Akins Specialists: Dr Cantu-Neurology Pharmacy: [facility] DME: None ADL's/IADL's: Patient is independent with all ADL's and IADL's. He still drives. Past SNF/rehab: None Past HH: None LW: None. POA: None Plan: Patient is newly diagnosed with Multiple Sclerosis. He said his balance has been off, but other than that he is fine. He said they are trying to figure out which MS he has so they know how to treat it. SW asked how he has been coping since the diagnosis. He said it has been a bit stressful, but he feels he is managing ok. He declined any need for counseling resources. He does not think he will need anything at d/c, but he is aware SW and [facility] CM are available. Zandra Goldberg [employer]
--- NOTE | 2021-06-08 14:19 | PCM.PN.HOSP ---
Subjective Subjective Doing well. Denies any headaches or blurry vision. Does not feel unsteady and was ambulating okay in the hallway. Objective Data Objective Data Vital Signs: Vital Signs Temp Pulse Resp BP Pulse Ox 97.9 F 92 16 155/92 H 96 06/08/21 09:16 06/08/21 09:16 06/08/21 09:16 06/08/21 09:16 06/08/21 09:16 Oxygen Delivery Method Room Air Weight: 256 lb 2.834 oz Body Mass Index (BMI) 34.4 Intake & Output: Intake and Output for Last 24 Hours 06/07/21 06/08/21 06/09/21 03:59 03:59 03:59 Intake Total 975.00 / 1543.75 2484.17 / 2484.17 600 / 600 Output Total 1800 / 2500 1400 / 1400 Balance -825.00 / -956.25 1084.17 / 1084.17 600 / 600 Lab / Micro Data Result Diagrams: 06/07/21 04:35 06/08/21 07:38 Labs: Laboratory Results - last 24 hr 06/07/21 16:15: POC Glucose 108 06/07/21 22:14: POC Glucose 129 H 06/08/21 06:42: POC Glucose 122 H 06/08/21 07:38: Sodium 138, Potassium 3.9, Chloride 106, Carbon Dioxide 26.0, Anion Gap 6, BUN 21 H, Creatinine 1.40 H, Estim Creat Clear Calc 80.06, Est GFR (MDRD) Af Amer 74, Est GFR (MDRD) Non-Af 61, BUN/Creatinine Ratio 15.0, Glucose 119 H, Calcium 9.3, Phosphorus 3.0, Magnesium 2.2 06/08/21 11:14: POC Glucose 135 H Micro: Microbiology 06/06/21 18:30 Interface Orders Group A Streptococcus Rapid Screen - Final Streptococcus Group A Radiography Diagnostic Testing: Radiology Impression Echocardiogram 06/06/21 22:01 Interpretation Summary Normal LV size. Moderate concentric left ventricular hypertrophy. Left ventricular systolic function is normal. The estimated ejection fraction is 60 %. Ordering Physician: Susi Hannon [facility] Performed By: Chelo York, RDCS, RVT Brain MRI 06/07/21 11:30 IMPRESSION: 1. Severe progression of disease. 2. Markedly larger involvement of cerebral and brainstem white matter. 3. No enhancement. 4. This appearance is possible but not common in multiple sclerosis, consider a broader differential diagnosis such as MS variants, ADEM, PML, systemic/autoimmune related white matter disease, toxic exposure related white matter disease, etc. Electronically Signed: Michael Cooley MD at 14:39 EDT Tel , Service support , Physical Exam Const alert, oriented x3 and no apparent distress General Appearance: cooperative HEENT normocephalic and moist oral mucous membranes Eyes PERRL, EOMs intact bilaterally and conjunctivae normal Neck supple and no JVD Resp normal respiratory effort, no retractions, no use of accessory muscles and clear to auscultation bilaterally Auscultation: Negative for crackles, rales, rhonchi or wheezes Cardio regular rate, regular rhythm, S1 normal heart sound, S2 normal heart sound and no murmurs GI soft to palpation, non-tender and non-distended; Negative for hepatosplenomegaly Extremity no clubbing, cyanosis or edema Skin no rashes or lesions noted Neuro no focal motor deficits and no sensory deficits noted Psych affect normal Appearance: appropriate Assessment & Plan Assessment/Plan (1) Hypertensive urgency: (2) Acute streptococcal pharyngitis: PLAN: 1. Hypertensive urgency: EKG in ED with sinus rhythm with no acute evidence of ischemia, chest x-ray not performed in the ED, no cardiac enzymes performed in the ED, initiated on Cardene drip with significant BP improvement, given difficulty controlling patient's blood pressure will admit to the ICU, continue Cardene drip, consult sweeper operator highways given ICU bed request, initiate serial cardiac enzymes, magnesium level would be requested, repeat EKGs as needed and will request echocardiogram, FLP in AM. We will hold off on aspirin therapy given byron hematuria but add back once improved. -06/07/2021: We will transition his metoprolol to Coreg and add Norvasc and try to wean off Cardene. Echo for the morning -06/08/2021: Echo with moderate concentric hypertrophy, increase dose of Coreg to 25 mg p.o. twice daily and continue with Norvasc 2. Acute streptococcal pharyngitis infection with associated likely acute glomerular nephritis with acute hematuria as noted #3: We will initiate cefdinir with 300 mg orally twice daily, do suspect related with hematuria as noted and expect improvement following this regimen. Will have as needed agents as needed for sore throat. Unclear if this acute presentation and acute illness as well as hypertensive urgency is associated with his worsened balance issues with underlying MS. 3. Acute hematuria suspected likely secondary to acute glomerulonephritis with acute streptococcal infection: Likely etiology is acute streptococcal infection as noted, urinalysis with no obvious evidence of UTI, will continue to closely monitor and given plan treatment for acute streptococcal infection if resolved no need for urological intervention, closely monitor renal function. 4. Multiple sclerosis with worsening bilateral frontal lobe white matter decreased density on CT head: 02/02/2021 brain MRI with moderate white matter plaque present in the bilateral periventricular and subcortical regions extending to the centrum semiovale at the apex of the skull, moderate demyelinating plaques present in the bilateral thalamic lobes, right greater than left and in the splenium and anterior aspect of the corpus callosum with no demonstrated bright diffusion signal abnormality, mild abnormal bright T2 signal in the mallet present across the mati, faint diffuse increased T2 signal present in the folia of the bilateral cerebral lobes, no suspicious or malignant appearing lesions, centrally enhancing plaque present the superior posterior aspect the right frontal lobe with slight halo of hypodensity on the postcontrast study suggesting necrosis or edema. Unclear if patient's recent worsened balance is associated with progressing disease or associated with acute current presentation as noted above, will obtain MRI with and without contrast, request case management consultation as well as PT and OT assessments. Maintain on fall precautions. -06/08/2021: MRI demonstrated severe progression of his MRI findings from March. Consulted [facility] neurology who recommended acute transfer to tertiary care center that has in-house neurology for further evaluation given the large differential this could represent. Currently attempting to transfer to the [facility]. 5. Diabetes mellitus type II: Hold oral home regimen, continue home insulin regimen, ADA diet, accu checks w/ ISS. 6. Chronic Kidney Disease Stage III, unclear subtype: Admission BUN/Cr 18/1.62, baseline renal function 1.3-1.5 primarily, repeat BMP in AM. 7. Obesity: Weight loss and lifestyle changes encouraged. 8. Hyperlipidemia: Continue home statin regimen. AM FLP. DVT: SCDs Charges/Coding Visit Charges Inpatient E&M: 65720 Subs Hosp L2
[2021-06-08 15:07] VITALS: PULSE 88
[2021-06-08 15:15] VITALS: BP 147/97; PULSE 83; RESP 16; TEMP 36.6; O2SAT 97
--- NOTE | 2021-06-08 15:15 | PCM.DC ---
Discharge Instructions Diet Discharge Diet: No restrictions Activity Discharge Activity: Return to Normal Activity Dressing / Incision Call your doctor if you observe: Fever of 101 or Higher, Shortness of breath, Dizziness, Fainting spells, Swelling in the ankles, Chest pain and Increased palpitations (irregular heartbeat) Follow Up Care Test Results: Test results from this visit will be discussed in further detail at your follow-up appointment, if applicable. Discharge Plan Admission Admit Date/Time: 06/06/21 21:27 Attending Provider: Bryn Anders [facility] Consulting Providers: Jose D Jimenez Discharge Orders/Prescriptions Prescriptions: New carvedilol 25 mg Tablet 25 mg PO BID Qty: 60 RF: 0 amlodipine 10 mg Tablet 10 mg PO DAILY Qty: 30 RF: 0 cefdinir 300 mg Capsule 300 mg PO Q12 Qty: 10 RF: 0 Continued atorvastatin 20 mg tablet 20 mg PO DAILY RF: 0 ferrous sulfate [FeroSul] 325 mg (65 mg iron) tablet 325 mg PO DAILY RF: 0 losartan 100 mg tablet 100 mg PO DAILY RF: 0 loratadine 10 mg capsule 10 mg PO PRN PRN (Reason: Allergy Symptoms) RF: 0 metformin 500 mg tablet 500 mg PO BID RF: 0 cholecalciferol (vitamin D3) 1,250 mcg (50,000 unit) capsule 1,250 mcg PO MO RF: 0 Discontinued metoprolol tartrate 100 mg tablet 100 mg PO DAILY RF: 0 [facility] - Within 1 Week Disposition Disposition (needs filled in before D/C Order can be placed): Home, Self Care
--- NOTE | 2021-06-08 15:23 | PCM.DC.SUM ---
Providers Date of Admission: 06/06/21 Primary Care Physician: Allyssa [facility] Consultations 06/06/21 21:41 Consult: Forensic Anthropologist / Pulmonary Medicine Routine Consulting Provider: Jose D Jimenez Reason for Consult: HTN urg on cardene, Strep w/ hematuria, worsening MS sxs EMERGENT Consult: No MD Notified: Yes Date Notified: 06/06/21 Time Notified: 21:29 Method of Notification: cortext Reason For Visit: HTN URGENCY, STREP/HEMATURIA IMBALANCE W/ MS Diagnosis Discharge Diagnosis (1) Hypertensive urgency: Status: Acute Code(s): I16.0 - Hypertensive urgency (2) Acute streptococcal pharyngitis: Status: Acute Code(s): J02.0 - Streptococcal pharyngitis Medications at Discharge Home Medications atorvastatin 20 mg tablet 20 mg PO DAILY tab 03/10/21 ferrous sulfate 325 mg (65 mg iron) tablet 325 mg PO DAILY 03/10/21 loratadine 10 mg capsule 10 mg PO PRN PRN 03/10/21 losartan 100 mg tablet 100 mg PO DAILY tab 03/10/21 metformin 500 mg tablet 500 mg PO BID tab 03/10/21 cholecalciferol (vitamin D3) 1,250 mcg PO MO 06/06/21 amlodipine 10 mg PO DAILY #30 tab 06/08/21 carvedilol 25 mg PO BID #60 tab 06/08/21 cefdinir 300 mg PO Q12 #10 cap 06/08/21 Hospital Course Operations None Procedures None Summary of Care Provided Minutes Spent on Discharge: 45 Hospital Course: Per HPI: The patient is a 35 y/o M w/ PMHx: Obesity, HTN, HLD, Diabetes mellitus type II, Migraine headaches, Multiple Sclerosis recently diagnosed following with neurology per his report who presents to the [facility] ED on 06/06/21 with history of recent onset 2 to 3-day history of sore throat without specific cough, mild congestion, mild bilateral temporal and posterior throbbing headache rated 2-3 out of 10 in severity with episode of nausea and emesis the evening prior with no fevers or chills but sudden onset byron hematuria prompting ED evaluation. Patient additionally noted that his balance has been worse over the last several days compared to his baseline reporting he does have general debility and balance issues secondary to his underlying multiple sclerosis. Work-up in the ED included T 97.8, heart rate initially 114, BP initially 223/156, respiratory rate 20, 97% on room air with most recent vital signs heart rate 121, BP down to 172/112, respiratory rate 16, 99% on room air, CBC with WBC 10.7, hemoglobin 13.5, platelet 217 without marked shift, BMP with potassium 3.2, BUN/creatinine 18/1.62, glucose 170, urinalysis with protein 500, glucose 250, ketone 5, occult blood 250, negative nitrite, leukocyte esterase 25, urine RBCs greater than 100, no urine WBCs or bacteria noted, rapid strep a screen positive, CT of the head with no acute intracranial hemorrhage or mass-effect with evidence of worsening bilateral frontal lobe white matter decreased density associated with his multiple sclerosis evident on prior MRI. In the ED patient ministered IV Rocephin and placed on cardene drip. Hospital Course: 1. Hypertensive urgency: EKG in ED with sinus rhythm with no acute evidence of ischemia, chest x-ray not performed in the ED, no cardiac enzymes performed in the ED, initiated on Cardene drip with significant BP improvement, given difficulty controlling patient's blood pressure will admit to the ICU, continue Cardene drip, consult transplant surgeon given ICU bed request, initiate serial cardiac enzymes, magnesium level would be requested, repeat EKGs as needed and will request echocardiogram, FLP in AM. We will hold off on aspirin therapy given byron hematuria but add back once improved. -06/07/2021: We will transition his metoprolol to Coreg and add Norvasc and try to wean off Cardene. Echo for the morning -06/08/2021: Echo with moderate concentric hypertrophy, increase dose of Coreg to 25 mg p.o. twice daily and continue with Norvasc. I discussed with him the plan for discharge today and he was understanding of the risk benefits going home and would like to go home today. I discussed with him that he needs to follow-up with his PCP in 3 to 5 days. 2. Acute streptococcal pharyngitis infection with associated likely acute glomerular nephritis with acute hematuria as noted #3: We will initiate cefdinir with 300 mg orally twice daily, do suspect related with hematuria as noted and expect improvement following this regimen. Will have as needed agents as needed for sore throat. Unclear if this acute presentation and acute illness as well as hypertensive urgency is associated with his worsened balance issues with underlying MS. 3. Acute hematuria suspected likely secondary to acute glomerulonephritis with acute streptococcal infection: Likely etiology is acute streptococcal infection as noted, urinalysis with no obvious evidence of UTI, will continue to closely monitor and given plan treatment for acute streptococcal infection if resolved no need for urological intervention, closely monitor renal function. 4. Multiple sclerosis with worsening bilateral frontal lobe white matter decreased density on CT head: 02/02/2021 brain MRI with moderate white matter plaque present in the bilateral periventricular and subcortical regions extending to the centrum semiovale at the apex of the skull, moderate demyelinating plaques present in the bilateral thalamic lobes, right greater than left and in the splenium and anterior aspect of the corpus callosum with no demonstrated bright diffusion signal abnormality, mild abnormal bright T2 signal in the mallet present across the mati, faint diffuse increased T2 signal present in the folia of the bilateral cerebral lobes, no suspicious or malignant appearing lesions, centrally enhancing plaque present the superior posterior aspect the right frontal lobe with slight halo of hypodensity on the postcontrast study suggesting necrosis or edema. Unclear if patient's recent worsened balance is associated with progressing disease or associated with acute current presentation as noted above, will obtain MRI with and without contrast, request case management consultation as well as PT and OT assessments. Maintain on fall precautions. -06/08/2021: MRI demonstrated severe progression of his MRI findings from March. Consulted [facility] neurology who recommended acute transfer to tertiary care center that has in-house neurology for further evaluation given the large differential this could represent. I was able to get in touch with the [facility] neurologist, Dr. Matthew, who felt that this was an outpatient work-up that was needed as he did not have any catrachita active lesions on the MRI. He did recommend follow-up with the MS clinic at the [facility]. I discussed the patient that they will have appointments this week for him and that he will be contacted by them this evening. 5. Diabetes mellitus type II: Hold oral home regimen, continue home insulin regimen, ADA diet, accu checks w/ ISS. 6. Chronic Kidney Disease Stage III, unclear subtype: Admission BUN/Cr 18/1.62, baseline renal function 1.3-1.5 primarily, repeat BMP in AM. 7. Obesity: Weight loss and lifestyle changes encouraged. 8. Hyperlipidemia: Continue home statin regimen. AM FLP. Weight / BMI Weight Weight: 256 lb 2.834 oz Body Mass Index (BMI) 34.4 ABG / Lab / Microbiology Data Result Diagrams: 06/07/21 04:35 06/08/21 07:38 Laboratory: Laboratory Results - last 24 hr 06/07/21 16:15: POC Glucose 108 06/07/21 22:14: POC Glucose 129 H 06/08/21 06:42: POC Glucose 122 H 06/08/21 07:38: Sodium 138, Potassium 3.9, Chloride 106, Carbon Dioxide 26.0, Anion Gap 6, BUN 21 H, Creatinine 1.40 H, Estim Creat Clear Calc 80.06, Est GFR (MDRD) Af Amer 74, Est GFR (MDRD) Non-Af 61, BUN/Creatinine Ratio 15.0, Glucose 119 H, Calcium 9.3, Phosphorus 3.0, Magnesium 2.2 06/08/21 11:14: POC Glucose 135 H Microbiology: Microbiology 06/06/21 18:30 Interface Orders Group A Streptococcus Rapid Screen - Final Streptococcus Group A Radiography Diagnostic Testing: Radiology Impression Echocardiogram 06/06/21 22:01 Interpretation Summary Normal LV size. Moderate concentric left ventricular hypertrophy. Left ventricular systolic function is normal. The estimated ejection fraction is 60 %. Ordering Physician: Susi Hannon [facility] Performed By: Chelo York, DANNY, RVT D/C Instructions Discharge Diet: No restrictions Call your doctor if you observe: Fever of 101 or Higher, Shortness of breath, Dizziness, Fainting spells, Swelling in the ankles, Chest pain and Increased palpitations (irregular heartbeat) Meaningful Use Info Meaningful Use Diagnoses (Choose all that apply): None applicable Discharge Plan Admission Admit Date/Time: 06/06/21 21:27 Attending Provider: Bryn Anders [facility] Consulting Providers: Jose D Jimenez Discharge Orders/Prescriptions Prescriptions: New carvedilol 25 mg Tablet 25 mg PO BID Qty: 60 RF: 0 amlodipine 10 mg Tablet 10 mg PO DAILY Qty: 30 RF: 0 cefdinir 300 mg Capsule 300 mg PO Q12 Qty: 10 RF: 0 Continued atorvastatin 20 mg tablet 20 mg PO DAILY RF: 0 ferrous sulfate [FeroSul] 325 mg (65 mg iron) tablet 325 mg PO DAILY RF: 0 losartan 100 mg tablet 100 mg PO DAILY RF: 0 loratadine 10 mg capsule 10 mg PO PRN PRN (Reason: Allergy Symptoms) RF: 0 metformin 500 mg tablet 500 mg PO BID RF: 0 cholecalciferol (vitamin D3) 1,250 mcg (50,000 unit) capsule 1,250 mcg PO MO RF: 0 Discontinued metoprolol tartrate 100 mg tablet 100 mg PO DAILY RF: 0 Referrals / Follow Up: [facility] [Primary Care Provider] - Within 1 Week Disposition Disposition (needs filled in before D/C Order can be placed): Home, Self Care Charges/Coding Visit Charges Inpatient E&M: 81527 Disch Hosp
[2021-06-08 16:16] LABS: Bedside Glucose 109 mg/dL (70-110)
--- NOTE | 2021-06-09 15:22 | CASEMGMT ---
FATUMA DC F/u Call: DC Date: 06/09/2021 DC Diagnosis: HTN Urgency, Strep Pharyngitis, Acute Hematuria Dc Disposition: Home Lace/Strata: 06/17 Called patient listed number, patient answered and this contract writer introduced self and role. Patient states that he is doing fine and confirmed picked up Dc rx. Denies questions, issues or concerns with ACI, Medications or f/u. S. FATUMA Avina
== END 2021-06-08 16:40 | disposition home or self-care (01) | DRG 305 ==
LOC: ED 21:05 → ICU 21:36 → PCU 06-07 17:17
PROVIDERS: Internal Medicine Critical Care Medicine; Admitting Provider Family Medicine; Emergency Provider Emergency Medicine; Visit Provider Family Medicine
DX: I16.0 Hypertensive urgency (principal); J02.0 Streptococcal pharyngitis; G35 Multiple sclerosis; I12.9 Hypertensive chronic kidney disease with stage 1 through stage 4 chronic kidney disease, or unspecified chronic kidney disease; E11.22 Type 2 diabetes mellitus with diabetic chronic kidney disease; N18.30 Chronic kidney disease, stage 3 unspecified; E66.9 Obesity, unspecified; E78.5 Hyperlipidemia, unspecified; E87.6 Hypokalemia; Z79.4 Long term (current) use of insulin; Z79.899 Other long term (current) drug therapy; Z87.891 Personal history of nicotine dependence; Z68.34 Body mass index [BMI] 34.0-34.9, adult
CPT/HCPCS: 70450; 70553; 80048; 80053; 80061; 81001; 82962; 83735; 84100; 84484; 85025; 87077; 87880; 93005; 93306; 97162; 97166; 99285; A9575; J7030; J7050; A4216

== ENCOUNTER 2021-09-09 13:46 | Outpatient (CLI) | payer MEDICARE, MEDICAID, SELFPAY ==
--- NOTE | 2021-09-09 15:01 | NEURO_ITS ---
NCS and/or EMG Patient Report Ordering Doctor: Yaakov Cantu DATE OF SERVICE: 09/09/21 Luis Carlos presents for electrodiagnostic testing of the upper limbs. He reports numbness and tingling in both hands. Electrodiagnostic findings: Right median motor nerve demonstrates normal distal latency, amplitude and conduction velocity. Left median motor nerve demonstrates normal distal latency, amplitude and conduction velocity. Normal ulnar motor response bilaterally. Normal median ulnar F waves. Prolonged left median sensory latency at the wrist. Normal median sensory latency on the right. Normal median palmar responses. Normal ulnar and radial sensory responses on needle EMG, all muscles tested in the upper limbs showed no evidence of denervation with normal motor unit action potentials. Electrodiagnostic impression: This is a mildly abnormal study. 1. Electrodiagnostic findings suggestive of left-sided median mononeuropathy. This is consistent with a mild left carpal tunnel syndrome. There is no electrodiagnostic evidence for a right sided carpal tunnel syndrome comparison is made to a study done in June 2014. There has been improvement in left- sided median and sensory motor latencies since that time.
== END 2021-09-09 23:59 | disposition short-term general hospital (02) ==
LOC: PSN 13:49
PROVIDERS: Referring Provider Psychiatry & Neurology Neurology; Visit Provider Psychiatry & Neurology Neurology
DX: G56.03 Carpal tunnel syndrome, bilateral upper limbs (principal)
CPT/HCPCS: 95886; 95912

== ENCOUNTER 2021-09-30 15:25 | Outpatient (CLI) | payer MEDICARE, MEDICAID, SELFPAY ==
--- NOTE | 2021-09-30 15:26 | MRI_ITS ---
STUDY: MRA OF THE HEAD WITHOUT CONTRAST REASON FOR EXAM: Male, 35 years old. Evaluate for possible OPERATING SYSTEM PROGRAMMER vasculitis -- Suspect PML, DDx: includes PRES and OPERATING SYSTEM PROGRAMMER vasculitis TECHNIQUE: 3-D [id number] (TOF) imaging was performed with MIPs. The study was performed unenhanced. COMPARISON: None. FINDINGS: Normal bilateral petrous carotid arteries. Normal right cavernous carotid artery with a normal supraclinoid bifurcation. Normal left cavernous carotid artery with a normal supraclinoid bifurcation. Normal right A1 segments of the anterior cerebral artery. Normal left A1 segments of the anterior cerebral artery. Normal intact anterior communicating artery (ACOM). Normal bilateral A2 segments of the anterior cerebral arteries. Normal right M1 and M2 segments of the middle cerebral arteries, with a normal M1 bifurcation. Normal left M1 and M2 segments of the middle cerebral arteries, with a normal M1 bifurcation. There is a persistent origin of the right posterior cerebral artery with absence of the P1 segment of the right posterior cerebral artery. There is a persistent origin of the left posterior cerebral artery with absence of the P1 segment of the left posterior cerebral artery. Normal bilateral vertebral arteries. Normal basilar artery with a normal basilar bifurcation. The visualized bilateral superior cerebellar (SCA) arteries are normal. Normal bilateral P1, P2 and visualized P3 segments of the posterior cerebral arteries. There is no demonstrated aneurysm of the [place] of [place]. There is no major vessel occlusion or hemodynamically significant stenosis. There is no demonstrated abnormality of the visualized brain. MRI/MRA Head ONLY without Contrast IMPRESSION: Normal MRA of the head Electronically Signed: Ishmael Queen MD at 16:13 EST ,
== END 2021-09-30 23:59 | disposition home or self-care (01) ==
PROVIDERS: Visit Provider Psychiatry & Neurology Neurology
DX: I77.6 Arteritis, unspecified (principal)
CPT/HCPCS: 70544

== ENCOUNTER 2021-10-22 15:15 | Outpatient (CLI) | payer MEDICARE, MEDICAID, SELFPAY ==
[2021-10-22 16:09] LABS: Erythrocyte Sedimentation Rate 43 mm/hr (0-20)
[2021-10-22 16:15] LABS: Creatinine, Serum 1.81 mg/dL (0.70-1.30); EST Glomerular Filtration Rate 45 mL/min (>60); Est Glom Filt Rate - Afr Amer 55 mL/min (>60); Iron 42 ug/dL (65-175); Iron Binding Capacity,Total 300 ug/dL (250-450)
[2021-10-25 17:21] LABS: ANTINUCLEAR ANTIBODIES DIRECT Negative (Negative)
== END 2021-10-22 23:59 | disposition home or self-care (01) ==
LOC: LAB 15:15
PROVIDERS: Psychiatry & Neurology Neurology
DX: E61.1 Iron deficiency (principal); G35 Multiple sclerosis; I67.9 Cerebrovascular disease, unspecified
CPT/HCPCS: 36415; 82565; 83540; 83550; 85652; 86038; 86140; 86225; 86235

== ENCOUNTER 2021-11-13 06:17 | Outpatient (CLI) | payer MEDICARE, MEDICAID, SELFPAY ==
--- NOTE | 2021-11-13 06:18 | MRI_ITS ---
STUDY: MRI BRAIN WITH AND WITHOUT CONTRAST REASON FOR EXAM: Male, 35 years old. Follow-up suspected PML evaluation. Multiple sclerosis TECHNIQUE: Standardized multiplanar fat and water weighted pulse sequences were obtained. IV 23mL DOTAREM was administered for the contrast portion of the examination. COMPARISON: MRI of the brain dated June 07, 2021 FINDINGS: Mild interval decrease in moderate to significant subcortical and periventricular white matter hyperintensities extending superiorly to the cranial vertex in the bilateral centrum semiovale. On the prior study the confluent white matter abnormality measure 4 cm in width at the level of the centrum semiovale, however on the current study it maximally measures 3.48 cm. No change in moderate signal hyperintensity in the posterior aspects of both thalamic lobes with extension into the left side of the midbrain and throughout the mati. Slight swelling/bulbous appearance at the left cerebral peduncle pontine junction is also unchanged from the prior study. Moderate signal and a mallet the in the medial mid to posterior aspect of the left temporal lobe extending to the occipital junction is also unchanged from the prior study. Small demyelinating plaques of the corpus callosum and line in the periventricular subependymal regions which are perpendicularly oriented represent moderate interval decrease in size/improvement from the prior MR scan. The white matter plaques of the cerebellum are also decreased in size when compared to the prior study. Interval resolution of previously seen signal abnormality in the right cerebellar peduncle. The demyelinating plaques do not enhance on the postcontrast study. No abnormal enhancement of the meninges or dura. There is mild cerebral atrophy with widening of the extra-axial spaces and ventricular dilatation. Normal white matter tracts of the supratentorial brain. There is no evidence for recent intracranial ischemia or other cause of cytotoxic edema on diffusion weighted imaging (DWI). Normal T2* images of the brain without demonstrated susceptibility artifact. There is no demonstrated hemosiderin stain. Normal bilateral basal ganglia. Normal thalami. There is no extra-axial fluid accumulation. Normal flow voids within the major intracranial circulation suggesting patency by spin echo criteria. Normal venous enhancement. There is no enhancing intra-axial or extra-axial abnormality. Normal sella turcica, pituitary gland, infundibular stalk, optic chiasm and hypothalamus. Normal tectal plate and pineal gland. Normal medulla. Normal basal cisterns. Normal bilateral temporal bones. Normal bilateral internal auditory canals. No demonstrated orbital abnormality, within the constraints of a routine brain study. Normal visualized paranasal sinuses. Normal calvarium and skull base. Normal visualized soft tissue structures. Normal visualized upper cervical spine. MRI/Brain W/WO Contrast IMPRESSION: 1. Mild interval decrease in moderate to significant subcortical and periventricular white matter hyperintensities extending superiorly to the cranial vertex in the bilateral centrum semiovale. On the prior study the confluent white matter abnormality measure 4 cm in width at the level of the centrum semiovale, however on the current study it maximally measures 3.48 cm. 2. Small demyelinating plaques of the corpus callosum and line in the periventricular subependymal regions which are perpendicularly oriented represent moderate interval decrease in size/improvement from the prior MR scan. 3. Overall appearance suggests tumefactive multiple sclerosis. A component of progressive multifocal leukoencephalopathy may be possible with the imaging findings are not definitive. Clinical correlation recommended. Electronically Signed: Anil Waterman MD at 11:03 EDT ,
== END 2021-11-13 23:59 | disposition home or self-care (01) ==
LOC: MRI 06:18
PROVIDERS: Referring Provider Psychiatry & Neurology Neurology; Visit Provider Psychiatry & Neurology Neurology
DX: A81.2 Progressive multifocal leukoencephalopathy (principal)
CPT/HCPCS: 70553; A9575

== ENCOUNTER 2021-12-04 12:50 | Emergency (ER) | payer MEDICARE, MEDICAID, SELFPAY ==
[2021-12-04 12:52] VITALS: BP 186/123; PULSE 98; RESP 18; TEMP 36.7; O2SAT 98; BMI 34.1
[2021-12-04 13:10] VITALS: BP 171/114; PULSE 90
--- NOTE | 2021-12-04 13:10 | EX.ED.DYSGE1 ---
HPI History of Present Illness Chief Complaint: Chest Other Detail of Chief Complaint: Dizziness, unusual sensation in chest Informant: patient Onset/Context/Timing Onset: Hours Context: Sudden Onset Timing: Intermittent (Minutes with respect to the dizziness) Quality: Balance off and vague chest discomfort Location: Mid central chest Current Severity: Gone Maximum Severity: Mild Worsened by: Nothing Relieved by: Nothing Associated Symptoms Associated Symptoms: None Narrative Narrative: Patient is a 36-year-old male with history of hypertension, dyslipidemia, migraine headaches without aura and demyelinating disease of the central nervous system based on recent MRI of the brain. MRA of the brain was negative. Patient states he was at work. He felt dizzy which she described as his balance being off. He denied blurred vision, change in vision or double vision. He does report intermittent headache. He denies ringing his ears, decreased hearing or drainage from his ears. He denies rhinorrhea, congestion or postnasal drainage. He denies throat pain or trouble speaking or swallowing. He denies dyspnea. He denies nausea, vomiting or diarrhea. He denies black or maroon-colored stool. He denies urologic symptoms. He denies paresthesia or anesthesia of the upper or lower extremities. Prior similar symptoms: No Recent Illness/Hospitalization: Yes [facility] Medical History Arthritis Asthma Carpal tunnel syndrome Depression Diabetes Frequent headaches History of emotional problems History of pneumonia History of UTI Kidney stones Multiple sclerosis Pre-diabetes Seasonal allergies Home Medications atorvastatin 20 mg tablet 20 mg PO DAILY tab 03/10/21 [History Last Taken 06/05/21 22:00] ferrous sulfate 325 mg (65 mg iron) tablet 325 mg PO DAILY 03/10/21 [History Last Taken 06/06/21 10:00] loratadine 10 mg capsule 10 mg PO PRN PRN 03/10/21 [History Last Taken Unknown] losartan 100 mg tablet 100 mg PO DAILY tab 03/10/21 [History Last Taken 06/06/21 10:00] metformin 500 mg tablet 500 mg PO BID tab 03/10/21 [History Last Taken 06/06/21 10:00] cholecalciferol (vitamin D3) 1,250 mcg (50,000 unit) capsule 1,250 mcg PO QWEEK #4 cap 07/30/21 [Rx Last Taken Unknown] clonidine HCl 0.1 mg tablet 0.1 mg PO BID #60 tab 10/29/21 [Rx Last Taken Unknown] hydrochlorothiazide 25 mg PO DAILY 12/04/21 [History Last Taken Unknown] lurasidone [Latuda] 40 mg PO DAILY 12/04/21 [History Last Taken Unknown] metoprolol succinate 100 mg PO DAILY 12/04/21 [History Last Taken Unknown] Allergy/AdvReac Type Severity Reaction Status Date / Time latex Allergy Hives Verified 12/04/21 12:54 lisinopril Allergy Angioedema Verified 12/04/21 12:54 Family History Mother Hypertension Father Hypertension Other Myocardial infarction Surgical History No history of previous surgery Social History household members: other details: Patient lives with his mother and stepfather. Smoking Status: Former smoker Tobacco: How many years used: 9 how long ago did patient quit smoking: Quit 10 years prior, prior to this < 1 ppd. second hand exposure: No alcohol intake: current alcohol intake frequency: holidays/special occasions only substance use type: does not use ROS ROS ED Constitutional Constitutional ED: Denies chills, fever(s), subjective, sweats or weight loss Eyes Eyes: Denies blurry vision, change in vision or diplopia ENT ENT ED: Denies ear pain, rhinorrhea or sore throat Cardiovascular Cardiovascular: Reports other Details: Unusual sensation in chest ; Denies chest pain, orthopnea, palpitations or racing heartbeat Respiratory/Chest Respiratory/Chest: Denies cough, dyspnea, dyspnea on exertion, orthopnea or sputum Gastrointestinal Gastrointestinal: Denies abdominal pain, diarrhea, melena, nausea or vomiting Genitourinary Genitourinary ED: Denies dysuria, hematuria or urinary frequency Musculoskeletal Musculoskeletal: Denies arthralgias, back pain, myalgias or neck pain Integumentary Denies abscess, Abrasions or rash Neurologic Neurologic: Denies headache(s), paresthesias or weakness Endocrine Endocrinology: Denies polydipsia, polyphagia or polyuria Allergic/Immunologic Allergic/Immunologic ED: Denies mouth swelling or urticaria EXAM Physical Exam Const Vital Signs: 12/04/21 12:52 12/04/21 13:03 12/04/21 13:10 Temperature 98.0 F Temperature Source Temporal Pulse Rate 98 90 Pulse Rate [Lying] Pulse Rate [Sitting (for 1 minute prior to obtaining)] Pulse Rate [Standing (for 1 minute prior to obtaining)] Respiratory Rate 18 Respiratory Effort Normal Non-Labored Respiratory Pattern Normal Blood Pressure 186/123 H 171/114 H Blood Pressure [Lying] Blood Pressure [Sitting (for 1 minute prior to obtaining)] Blood Pressure [Standing (for 1 minute prior to obtaining)] Blood Pressure Mean 144 133 Blood Pressure Mean [Lying] Blood Pressure Mean [Sitting (for 1 minute prior to obtaining)] Blood Pressure Mean [Standing (for 1 minute prior to obtaining)] Pulse Ox 98 Oxygen Delivery Method Room Air 12/04/21 13:30 12/04/21 13:54 Temperature Temperature Source Pulse Rate 86 Pulse Rate [Lying] 83 Pulse Rate [Sitting (for 1 minute prior to obtaining)] 82 Pulse Rate [Standing (for 1 minute prior to obtaining)] 95 Respiratory Rate Respiratory Effort Respiratory Pattern Blood Pressure 169/117 H Blood Pressure [Lying] 156/104 H Blood Pressure [Sitting (for 1 minute prior to obtaining)] 159/104 H Blood Pressure [Standing (for 1 minute prior to obtaining)] 168/109 H Blood Pressure Mean 134 Blood Pressure Mean [Lying] 121 Blood Pressure Mean [Sitting (for 1 minute prior to obtaining)] 122 Blood Pressure Mean [Standing (for 1 minute prior to obtaining)] 128 Pulse Ox Oxygen Delivery Method Orthostatic vital sign is normal. Blood pressure has improved markedly without treatment. Positive well nourished, well developed and obese General Appearance ED: well developed and NAD; Negative for cyanotic, diaphoretic or pallor Nutritional Appearance: obese HEENT Reports TM's clear and dry mucous membranes HEENT Narrative: Nares patent. Posterior pharyngeal erythema exudate. Uvula midline. There is no angioedema. Negative for trauma or tenderness Tympanic Membrane ED: Yes TM's clear Mouth ED: Yes dry mucous membranes Mouth: dry mucous membranes Eyes PERRL and EOMs intact bilaterally Eyes Narrative: There is no APD. The bulb on the ophthalmoscope need to change to assess for papilledema. General Eye ED: Negative for pale conjunctiva or scleral icterus Neck no lymphadenopathy, supple and no JVD General: Negative for tenderness Chest Wall inspection of chest normal and palpation of chest normal Resp normal respiratory effort and clear to auscultation bilaterally Effort and Inspection: Negative for pain with movement Cardio regular rate, regular rhythm, S1 normal heart sound, S2 normal heart sound and no murmurs GI normal to inspection, nondistended, normoactive bowel sounds, non-tender and non-distended Palpation: soft Back/Spine no CVA tenderness Cervical Spine: Negative for cervical spine tenderness Thoracic Spine / Upper Back: Negative for thoracic spinal tenderness or paraspinal muscle tenderness Lumbar Spine / Lower Back: Negative for lumbar spinal tenderness Extremity normal to inspection Neuro oriented x3, CN's II-XII intact bilaterally and no sensory deficits noted Neuro Narrative: Gait observed and normal. Able to walk on heels and toes. Tandem gait normal. There is no dysmetria. Romberg with eyes open and closes normal. The eye askew test is negative. The hint test is negative. [place]-Hallpike maneuver is negative. Sensorium / Orientation: alert Motor Exam: strength 5/5 throughout Psych mental status grossly normal Skin no rashes or lesions noted, no wounds and skin turgor normal General Skin Exam: Negative for elasticity normal, jaundice or pallor MDM MDM MDM Narrative Medical decision making narrative: Patient presents with transient dizziness. This may be related to his demyelinating central nervous system process. His blood pressure is elevated and because he has history high blood pressure with elevated creatinine will obtain blood work to assess for endorgan injury. Patient will be observed. There is no evidence of endorgan injury when compared to prior labs. Blood pressure is improved without treatment. Orthostatic vital signs are normal. Will discharge to home Lab Data Attestation: I reviewed the patient's lab results. Labs: Laboratory Results - last 24 hr 12/04/21 12/04/21 12/04/21 13:21 13:21 13:47 WBC 10.5 RBC 5.80 Hgb 14.4 Hct 44.0 MCV 75.9 L MCH 24.8 L MCHC 32.7 RDW Std Deviation 41.5 RDW Coeff of [place] 15.2 H Plt Count 207 MPV 12.2 H Immature Gran % (Auto) 0.300 Neut % (Auto) 66.5 Lymph % (Auto) 23.6 [place] % (Auto) 7.2 Eos % (Auto) 1.6 Baso % (Auto) 0.8 Absolute Neuts (auto) 7.0 Absolute Lymphs (auto) 2.47 Nucleated RBC % 0 ESR 46 H Sodium 138 Potassium 3.4 L Chloride 106 Carbon Dioxide 26.0 Anion Gap 6 BUN 17 Creatinine 1.47 H Estim Creat Clear Calc 77.76 Est GFR (MDRD) Af Amer 69 Est GFR (MDRD) Non-Af 57 L BUN/Creatinine Ratio 11.6 Glucose 136 H Calcium 8.8 Urine Color Yellow Urine Clarity Clear Urine pH 5.0 Ur Specific [place] 1.025 Urine Protein 100 H Urine Glucose (UA) 100 H Urine Ketones Negative Urine Occult Blood 25 H Urine Nitrite Negative Urine Bilirubin Negative Urine Urobilinogen Normal Ur Leukocyte Esterase Negative Urine RBC 0-5 SEEN Urine WBC 0-5 SEEN Ur Squamous Epith Cells 0-5 SEEN Urine Bacteria 1+ Urine Mucus 0 SEEN Discharge Plan Triage Chief Complaint: Chest Other ED Provider: Alvin Harmon Dx/Rx/DC Orders Clinical Impression: Impairment of balance, Demyelinating disease of central nervous system, Accelerated essential hypertension, Chronic renal disease, stage 3, moderately decreased glomerular filtration rate (GFR) between 30-59 mL/min/1.73 square meter Instructions: ED Dizziness, Uncertain Cause, ED High Blood Pressure Hypertension Prescriptions: No Action atorvastatin 20 mg tablet 20 mg PO DAILY RF: 0 ferrous sulfate [FeroSul] 325 mg (65 mg iron) tablet 325 mg PO DAILY RF: 0 losartan 100 mg tablet 100 mg PO DAILY RF: 0 loratadine 10 mg capsule 10 mg PO PRN PRN (Reason: Allergy Symptoms) RF: 0 cholecalciferol (vitamin D3) 1,250 mcg (50,000 unit) capsule 1,250 mcg PO QWEEK Qty: 4 RF: 2 clonidine HCl 0.1 mg tablet 0.1 mg PO BID Qty: 60 RF: 4 metformin 500 mg tablet 500 mg PO BID RF: 0 metoprolol succinate 100 mg tablet extended release 24 hr 100 mg PO DAILY RF: 0 hydrochlorothiazide 25 mg tablet 25 mg PO DAILY RF: 0 Latuda 40 mg Tablet 40 mg PO DAILY RF: 0 Primary Care Provider: [facility] Allyssa Funk Referrals: [facility] Allyssa Funk [Primary Care Provider] - 5-7 Days Disposition Disposition: Home, Self Care
[2021-12-04 13:30] VITALS: BP 169/117; PULSE 86
[2021-12-04 13:32] LABS: Erythrocyte Sedimentation Rate 46 mm/hr (0-20)
[2021-12-04 13:35] LABS: Absolute Lymphocyte Count 2.47 X10^3/uL (0.83-4.51); Basophil# 0.08 X10^3/uL; Basophil% 0.8 % (0-1); Eosinophil# 0.17 X10^3/uL; Eosinophils% 1.6 % (0-5); Hemoglobin 14.4 g/dL (13.0-16.5); Lymphocyte # 2.47 X10^3/ul (0.83-4.51); Lymphocyte % 23.6 % (19-41); Mean Corp Hgb Conc 32.7 g/dL (32-36); Mean Corpuscular Hgb 24.8 pg (27.0-32.0); Mean Corpuscular Volume 75.9 fL (80-94); Mean Platelet Vol. 12.2 fl (6.2-12.0); Monocyte# 0.75 X10^3/uL; Monocyte% 7.2 % (0-10); NRBC Flagged by Analyzer 0 % (0-5); Neutrophil # 6.95 X10^3/uL (2.7-7.7); Neutrophil % 66.5 % (47-70); Platelet Count 207 K/mm3 (150-450); RBC Distribution Width CV 15.2 % (11.6-14.6); RBC Distribution Width SD 41.5 fl (35.1-43.9); White Blood Count 10.5 K/mm3 (4.4-11.0)
[2021-12-04 13:41] LABS: Anion Gap 6 (5-15); BUN 17 mg/dL (7-18); BUN/Creat Ratio 11.6 RATIO (10-20); Calcium,Total 8.8 mg/dL (8.5-10.1); Chloride 106 mmol/L (98-107); Creatinine, Serum 1.47 mg/dL (0.70-1.30); EST Glomerular Filtration Rate 57 mL/min (>60); Est Glom Filt Rate - Afr Amer 69 mL/min (>60); Estimated Creatinine Clearance 77.76 ml/min; Glucose 136 mg/dL (74-106); Potassium 3.4 mmol/L (3.5-5.1); Sodium Level 138 mmol/L (136-145)
[2021-12-04 13:54] VITALS: BP 156/104; BP 159/104; BP 168/109; PULSE 82; PULSE 83; PULSE 95
[2021-12-04 13:54] LABS: Mucous, Urine 0 SEEN /hpf (<or=2+)
[2021-12-04 13:56] LABS: Color, Urine Yellow (Yellow); Glucose, Dipstick 100 mg/dl (Normal); Ketone-Dipstick Negative (Negative); Leukocyte Esterase-Dipstick Negative /ul (Negative); Nitrite-Dipstick Negative (Negative); Occult Blood-Urine 25 /ul (Negative); Protein-Dipstick 100 mg/dl (Negative); Specific Gravity, Urine 1.025 (1.002-1.030); Urine Bilirubin Dipstick Negative (Negative); Urine Clarity Clear (Clear); Urine Urobilinogen Normal (Normal)
[2021-12-04 14:02] LABS: Bacteria 1+ /hpf (None Seen); Red Blood Cells-Urine 0-5 SEEN /hpf (0-5); Squamous Epithelial Cells - UA 0-5 SEEN /hpf (0-5); White Blood Cells 0-5 SEEN /hpf (0-5)
[2021-12-04 14:46] VITALS: BP 167/92; PULSE 84; RESP 16; O2SAT 99
== END 2021-12-04 14:47 | disposition home or self-care (01) ==
PROVIDERS: Emergency Provider Emergency Medicine; Visit Provider Emergency Medicine
DX: R26.89 Other abnormalities of gait and mobility (principal); G35 Multiple sclerosis; E11.22 Type 2 diabetes mellitus with diabetic chronic kidney disease; N18.30 Chronic kidney disease, stage 3 unspecified; I12.9 Hypertensive chronic kidney disease with stage 1 through stage 4 chronic kidney disease, or unspecified chronic kidney disease; Z87.891 Personal history of nicotine dependence; E78.5 Hyperlipidemia, unspecified; G43.909 Migraine, unspecified, not intractable, without status migrainosus; Z87.440 Personal history of urinary (tract) infections; J45.909 Unspecified asthma, uncomplicated; M19.90 Unspecified osteoarthritis, unspecified site; Z87.442 Personal history of urinary calculi; F32.A Depression, unspecified; Z79.84 Long term (current) use of oral hypoglycemic drugs; Z79.899 Other long term (current) drug therapy; E66.9 Obesity, unspecified; Z68.34 Body mass index [BMI] 34.0-34.9, adult
CPT/HCPCS: 80048; 81001; 85025; 85652; 99284

== ENCOUNTER 2021-12-17 23:30 | Emergency (ER) | payer MEDICARE, MEDICAID, SELFPAY ==
[2021-12-17 23:31] VITALS: BP 186/129; PULSE 111; RESP 16; TEMP 37.2; O2SAT 97; BMI 36.2
[2021-12-17 23:33] VITALS: BP 186/129; PULSE 109; RESP 15; O2SAT 96
--- NOTE | 2021-12-18 00:11 | EX.ED.VIS.UR ---
HPI HPI - URI History of Present Illness Chief Complaint: Cold Sx Narrative Narrative: Patient with past medical history of hypertension, bipolar disorder, multiple sclerosis presents with URI type symptoms. He states he has had cold symptoms since this morning. He has a cough with mild shortness of breath, body aches, runny nose with nasal congestion. Said subjective fever. He has had his COVID vaccinations. He presents mainly because he needs a note for work and his symptoms are getting worse. He denies any nausea or vomiting. No dysuria or hematuria, or other symptoms. 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 ROS ROS ED ROS Narrative Constitutional: No fever, no chills. HEENT: No sore throat. No neck pain. No loss of vision. Positive alternating nasal congestion with rhinorrhea. Cardiovascular: No chest pain. No palpitations. No pedal edema. Respiratory: Positive cough, positive shortness of breath. Abdominal: No abdominal pain. No nausea. No vomiting. Genitourinary: No dysuria. No hematuria. Musculoskeletal: Positive myalgias/muscle aches. No arthralgias. Neurologic: No headaches. No dizziness. No lightheadedness. Skin: No rash. No change in color. Psychiatric: No depression. No anxiety. [facility] Medical History Arthritis Asthma Carpal tunnel syndrome Depression Diabetes Frequent headaches History of emotional problems History of pneumonia History of UTI Kidney stones Multiple sclerosis Pre-diabetes Seasonal allergies Home Medications atorvastatin 20 mg tablet 20 mg PO DAILY tab 03/10/21 [History Last Taken 06/05/21 22:00] ferrous sulfate 325 mg (65 mg iron) tablet 325 mg PO DAILY 03/10/21 [History Last Taken 06/06/21 10:00] loratadine 10 mg capsule 10 mg PO PRN PRN 03/10/21 [History Last Taken Unknown] losartan 100 mg tablet 100 mg PO DAILY tab 03/10/21 [History Last Taken 06/06/21 10:00] metformin 500 mg tablet 500 mg PO BID tab 03/10/21 [History Last Taken 06/06/21 10:00] cholecalciferol (vitamin D3) 1,250 mcg (50,000 unit) capsule 1,250 mcg PO QWEEK #4 cap 07/30/21 [Rx Last Taken Unknown] clonidine HCl 0.1 mg tablet 0.1 mg PO BID #60 tab 10/29/21 [Rx Last Taken Unknown] hydrochlorothiazide 25 mg PO DAILY 12/04/21 [History Last Taken Unknown] lurasidone [Latuda] 40 mg PO DAILY 12/04/21 [History Last Taken Unknown] metoprolol succinate 100 mg PO DAILY 12/04/21 [History Last Taken Unknown] Allergy/AdvReac Type Severity Reaction Status Date / Time latex Allergy Hives Verified 12/17/21 23:31 lisinopril Allergy Angioedema Verified 12/17/21 23:31 Family History Mother Hypertension Father Hypertension Other Myocardial infarction Surgical History No history of previous surgery Social History household members: other details: Patient lives with his mother and stepfather. Smoking Status: Former smoker Tobacco: How many years used: 9 how long ago did patient quit smoking: Quit 10 years prior, prior to this < 1 ppd. second hand exposure: No alcohol intake: current alcohol intake frequency: holidays/special occasions only substance use type: does not use EXAM Physical Exam Narrative Exam Narrative: Afebrile. Vital signs noted. Elevated blood pressure. HEENT: Normocephalic. Atraumatic. PERRL, EOMI. Neck soft and supple. No point tenderness or step off. Cardiovascular: Regular rate and rhythm with intermittent tachycardia. No murmurs, rubs, or gallops appreciated. Respiratory: No tachypnea. Lungs clear to auscultation bilaterally. Gastrointestinal: Abdomen soft, nontender, with normoactive bowel sounds. No rebound or guarding. Neurological: Awake. Alert. Nonfocal, nonlateralizing. Skin: No rash. Normal color. No pallor. Musculoskeletal: No pedal edema. Full range of motion extremities. Const Vital Signs: 12/17/21 23:31 12/17/21 23:33 12/18/21 00:23 Temperature 98.9 F Temperature Source Temporal Pulse Rate 111 H 109 H 107 H Respiratory Rate 16 15 16 Respiratory Effort Normal Respiratory Pattern Normal Blood Pressure 186/129 H 186/129 H 178/119 H Blood Pressure Mean 148 148 138 Pulse Ox 97 96 95 Oxygen Delivery Method Room Air Room Air Room Air 12/18/21 01:38 Temperature 98.2 F Temperature Source Pulse Rate 101 H Respiratory Rate 18 Respiratory Effort Respiratory Pattern Blood Pressure 166/112 H Blood Pressure Mean Pulse Ox 96 Oxygen Delivery Method MDM MDM MDM Narrative Medical decision making narrative: Patient was given a dose of metoprolol here. We will obtain respiratory viral swabs along with a chest x-ray. Pulse ox is 97% on room air without evidence of hypoxia. Chest x-ray interpreted by myself/emergency physician shows no acute process, no infiltrate or pneumothorax. His RSV swab is negative. Initially, they had only run a COVID swab. His combination swab has returned with negative influenza, but he tested positive for COVID. He was given a note to be off work on 12/18/2021 through 12/23/2021. He will self isolate at home. Treatment be symptomatic with [id number] antipyretics. His pulse ox is normal. I feel he can be discharged safely home with follow-up. Return instructions to the emergency department were reviewed. Disposition is discharged home in stable condition. Radiography Diagnostic Testing: Clinical Impression(s) from Imaging Studies Chest X-Ray 12/18/21 00:20 IMPRESSION: No acute cardiopulmonary process. Electronically Signed: Diego Esposito MD at 0:46 EDT , Discharge Plan Triage Chief Complaint: Cold Sx ED Provider: Pio Martin Dx/Rx/DC Orders Clinical Impression: COVID, Acute viral syndrome, HTN (hypertension) Instructions: Coronavirus Disease 2019 (COVID-19): Caring for Yourself or Others, COVID-19 and the Flu: What's the Difference?, ED High Blood Pressure Hypertension, ED Viral Syndrome (Adult) Prescriptions: No Action atorvastatin 20 mg tablet 20 mg PO DAILY RF: 0 ferrous sulfate [FeroSul] 325 mg (65 mg iron) tablet 325 mg PO DAILY RF: 0 losartan 100 mg tablet 100 mg PO DAILY RF: 0 loratadine 10 mg capsule 10 mg PO PRN PRN (Reason: Allergy Symptoms) RF: 0 cholecalciferol (vitamin D3) 1,250 mcg (50,000 unit) capsule 1,250 mcg PO QWEEK Qty: 4 RF: 2 clonidine HCl 0.1 mg tablet 0.1 mg PO BID Qty: 60 RF: 4 metformin 500 mg tablet 500 mg PO BID RF: 0 metoprolol succinate 100 mg tablet extended release 24 hr 100 mg PO DAILY RF: 0 hydrochlorothiazide 25 mg tablet 25 mg PO DAILY RF: 0 Latuda 40 mg Tablet 40 mg PO DAILY RF: 0 Stand Alone Forms: ED Work / School Excuse Primary Care Provider: [facility] Allyssa Funk Referrals: [facility],Allyssa Akins [Primary Care Provider] - Disposition Disposition: Home, Self Care Discharge Date/Time: 12/18/21 01:39
--- NOTE | 2021-12-18 00:20 | RAD_ITS ---
STUDY: X-RAY CHEST REASON FOR EXAM: Male, 36 years old. cough TECHNIQUE: 1 view COMPARISON: 12/14/2014 FINDINGS: The cardiac silhouette is top normal in size. Costophrenic angles are sharp. Lungs are clear. The trachea is midline. There is no pneumothorax. The bones are grossly intact. RAD/Chest 1 View (Portable) IMPRESSION: No acute cardiopulmonary process. Electronically Signed: Diego Esposito MD at 0:46 EDT ,
[2021-12-18 00:23] VITALS: BP 178/119; PULSE 107; RESP 16; O2SAT 95
[2021-12-18] MEDS: Metoprolol(XL)Succ 50 MG Tablet PO (00:24)
[2021-12-18 01:38] VITALS: BP 166/112; PULSE 101; RESP 18; TEMP 36.8; O2SAT 96
== END 2021-12-18 01:39 | disposition home or self-care (01) ==
PROVIDERS: Emergency Provider Emergency Medicine; Visit Provider Emergency Medicine
DX: U07.1 COVID-19 (principal); G35 Multiple sclerosis; F31.9 Bipolar disorder, unspecified; E11.9 Type 2 diabetes mellitus without complications; I10 Essential (primary) hypertension; Z87.891 Personal history of nicotine dependence; Z79.899 Other long term (current) drug therapy; Z79.84 Long term (current) use of oral hypoglycemic drugs; M19.90 Unspecified osteoarthritis, unspecified site; J45.909 Unspecified asthma, uncomplicated
CPT/HCPCS: 71045; 87428; 87807; 99283

== ENCOUNTER 2022-04-25 21:55 | Emergency (ER) | payer MEDICARE, MEDICAID, SELFPAY ==
[2022-04-25 21:56] VITALS: BP 209/131; PULSE 101; RESP 16; TEMP 37.1; O2SAT 99; BMI 36.2
[2022-04-25 22:32] LABS: Absolute Lymphocyte Count 3.16 X10^3/uL (0.83-4.51); Absolute Neutrophil Count 7.7 X10^3/uL (2.0-7.7); Basophil# 0.08 X10^3/uL; Basophil% 0.7 % (0-1); Eosinophil# 0.35 X10^3/uL; Eosinophils% 2.9 % (0-5); Hematocrit 44.1 % (40-54); Hemoglobin 14.2 g/dL (13.0-16.5); Lymphocyte # 3.16 X10^3/ul (0.83-4.51); Lymphocyte % 25.8 % (19-41); Mean Corp Hgb Conc 32.2 g/dL (32-36); Mean Corpuscular Hgb 25.6 pg (27.0-32.0); Mean Corpuscular Volume 79.5 fL (80-94); Mean Platelet Vol. 12.3 fl (6.2-12.0); Monocyte# 0.88 X10^3/uL; Monocyte% 7.2 % (0-10); NRBC Flagged by Analyzer 0 % (0-5); Neutrophil # 7.71 X10^3/uL (2.7-7.7); Platelet Count 203 K/mm3 (150-450); RBC Distribution Width CV 15.1 % (11.6-14.6); RBC Distribution Width SD 43.2 fl (35.1-43.9); Red Blood Count 5.55 M/mm3 (4.6-6.2); White Blood Count 12.2 K/mm3 (4.4-11.0)
--- NOTE | 2022-04-25 22:34 | EX.ED.DYSGE1 ---
HPI History of Present Illness Chief Complaint: Edema Informant: patient Narrative Narrative: Patient presents for lower extremity swelling bilaterally. He states woke up this morning was not as swollen [place] day, this evening more swelling than normal. No chest pains or shortness of breath no orthopnea. History of hypertension taking his medications. Blood pressure elevated from triage denies headache chest pain or abdominal pain. Denies nausea or vomiting. He states normal urine output. No history of kidney disease. Records noted potential MS history however he states that has been ruled out since. No recent travel no history of DVTs. [facility] Medical History Arthritis Asthma Carpal tunnel syndrome Depression Diabetes Fatigue Fatigue Frequent headaches History of emotional problems History of pneumonia History of UTI Kidney stones Multiple sclerosis Pre-diabetes Seasonal allergies Home Medications atorvastatin 20 mg tablet 20 mg PO DAILY Check with primary doctor 03/10/21 [History Last Taken 06/05/21 22:00] losartan 100 mg tablet 100 mg PO DAILY 03/10/21 [History Last Taken 06/06/21 10:00] hydrochlorothiazide 25 mg tablet 25 mg PO DAILY 12/04/21 [History Last Taken Unknown] lurasidone 40 mg tablet (Latuda) 40 mg PO DAILY 12/04/21 [History Last Taken Unknown] metoprolol succinate 100 mg tablet,extended release 24 hr 100 mg PO DAILY 12/04/21 [History Last Taken Unknown] cholecalciferol (vitamin D3) 1,250 mcg (50,000 unit) capsule 1,250 mcg PO QWEEK #4 caps 12/22/21 [Rx Last Taken Unknown] clonidine HCl 0.2 mg tablet 0.2 mg PO BID #60 tabs 12/22/21 [Rx Last Taken Unknown] ferrous sulfate 325 mg (65 mg iron) tablet (FeroSul) 325 mg PO BID #60 tabs 12/22/21 [Rx Last Taken Unknown] cetirizine 10 mg tablet (Zyrtec) 10 mg PO DAILY 04/25/22 [History Last Taken Unknown] potassium chloride 10 mEq tablet,extended release 10 meq PO DAILY #7 tabs 04/25/22 [Rx Last Taken Unknown] Allergy/AdvReac Type Severity Reaction Status Date / Time lisinopril Allergy Severe Angioedema Verified 04/25/22 22:03 latex Allergy Mild Hives Verified 04/25/22 22:03 Family History Mother Hypertension Father Hypertension Other Myocardial infarction Surgical History No history of previous surgery Social History household members: other details: Patient lives with his mother and stepfather. Smoking Status: Former smoker Tobacco: How many years used: 9 how long ago did patient quit smoking: Quit 10 years prior, prior to this < 1 ppd. second hand exposure: No alcohol intake: current alcohol intake frequency: holidays/special occasions only substance use type: does not use ROS ROS ED Constitutional Constitutional ED: Denies chills, fever(s) or sweats Eyes Eyes: Denies change in vision ENT ENT ED: Denies dysphagia or sore throat Cardiovascular Cardiovascular: Reports leg edema; Denies chest pain, palpitations or racing heartbeat Respiratory/Chest Respiratory/Chest: Denies cough, dyspnea or dyspnea on exertion Gastrointestinal Gastrointestinal: Denies abdominal pain, diarrhea, nausea or vomiting Genitourinary Genitourinary ED: Denies dysuria, hematuria or urinary frequency Musculoskeletal Musculoskeletal: Denies back pain, extremity pain or neck pain Integumentary Denies rash or wounds Neurologic Neurologic: Denies headache(s), paresthesias or weakness EXAM Physical Exam Const Vital Signs: 04/25/22 21:56 04/25/22 22:46 04/25/22 23:55 Temperature 98.7 F Temperature Source Temporal Pulse Rate 101 H 82 Respiratory Rate 16 16 Blood Pressure 209/131 H 204/143 H 204/142 H Blood Pressure Mean 157 163 162 Pulse Ox 99 96 Oxygen Delivery Method Room Air Room Air 04/26/22 00:10 Temperature Temperature Source Pulse Rate 80 Respiratory Rate 18 Blood Pressure 229/146 H Blood Pressure Mean Pulse Ox 100 Oxygen Delivery Method Positive well nourished and well developed General Appearance ED: well developed and NAD HEENT Reports moist mucous membranes normocephalic and atraumatic Eyes PERRL, EOMs intact bilaterally and conjunctivae normal General Eye ED: Yes normal appearance of both eyes Neck no lymphadenopathy and supple General: Negative for tenderness Chest Wall Chest: Negative for tenderness Resp normal respiratory effort and normal air movement Effort and Inspection: symmetric chest movement; Negative for respiratory distress Cardio regular rate, regular rhythm and no murmurs Peripheral Pulses: pulses 2+ throughout GI normal to inspection, nondistended, normoactive bowel sounds and non-tender Palpation: Negative for guarding or rebound tenderness present Back/Spine no CVA tenderness and no thoracic nor lumbar tenderness Extremity normal to inspection Extremity Narrative: 1-2+ lower extremity edema bilaterally. No calf or medial thigh tenderness. Pulses were intact distally. General Extremety ED: Yes edema; Negative for tenderness General Extremity: edema Neuro oriented x3 and no sensory deficits noted Sensorium / Orientation: awake and alert Skin no rashes or lesions noted and no wounds MDM MDM MDM Narrative Medical decision making narrative: Patient primary complaint evaluation leg swelling. He has pulses. Likely from being on his feet all day. There is no current formal ultrasound available. He has no PE concerns. Blood pressure was elevated on arrival is asymptomatic. I did check labs creatinine 2.04 up from 1.4 from his last 1 however he ranges from 1.4-1.8. Urine showed no proteins. He was given a liter of fluids. He is urinating ED. No concern for postobstructive concerns. He is given his nighttime dose of clonidine. He states he has been compliant with medications. Discussed with patient taking his home medicines close monitoring of blood pressure. Strict return precautions. Formal outpatient ultrasound legs ordered for tomorrow. All questions were answered. Lab Data Attestation: I reviewed the patient's lab results. Labs: Laboratory Results - last 24 hr 04/25/22 04/25/22 04/25/22 22:19 22:19 22:59 WBC 12.2 H RBC 5.55 Hgb 14.2 Hct 44.1 MCV 79.5 L MCH 25.6 L MCHC 32.2 RDW Std Deviation 43.2 RDW Coeff of [place] 15.1 H Plt Count 203 MPV 12.3 H Immature Gran % (Auto) 0.400 Neut % (Auto) 63.0 Lymph % (Auto) 25.8 [place] % (Auto) 7.2 Eos % (Auto) 2.9 Baso % (Auto) 0.7 Absolute Neuts (auto) 7.7 Absolute Lymphs (auto) 3.16 Nucleated RBC % 0 Sodium 139 Potassium 3.0 L Chloride 105 Carbon Dioxide 25.0 Anion Gap 9 BUN 29 H Creatinine 2.04 H Estim Creat Clear Calc 52.80 Est GFR (MDRD) Af Amer 47 L Est GFR (MDRD) Non-Af 39 L BUN/Creatinine Ratio 14.2 Glucose 129 H Calcium 9.2 Urine Color Yellow Urine Clarity Sl. Cloudy Urine pH 5.0 Ur Specific [place] 1.020 Urine Protein 100 H Urine Glucose (UA) Normal Urine Ketones Negative Urine Occult Blood 25 H Urine Nitrite Negative Urine Bilirubin Negative Urine Urobilinogen Normal Ur Leukocyte Esterase Negative Urine RBC 0-5 SEEN Urine WBC 0-5 SEEN Ur Squamous Epith Cells 0-5 SEEN Amorphous Sediment 1+ URATE Urine Bacteria 0 SEEN Urine Mucus 0 SEEN Discharge Plan Triage Chief Complaint: Edema ED Provider: Trey Castanon Dx/Rx/DC Orders Clinical Impression: Edema, peripheral, Acute hypokalemia, Acute on chronic renal insufficiency, Elevated blood pressure reading with diagnosis of hypertension Instructions: ED Peripheral Edema, Bilateral, ED Renal Insufficiency Prescriptions: New potassium chloride 10 mEq tablet extended release 10 meq PO DAILY Qty: 7 0RF No Action atorvastatin 20 mg tablet 20 mg PO DAILY Label Comments: take 1 tablet by mouth once daily losartan 100 mg tablet 100 mg PO DAILY clonidine HCl 0.2 mg tablet 0.2 mg PO BID Qty: 60 4RF ferrous sulfate [FeroSul] 325 mg (65 mg iron) tablet 325 mg PO BID Qty: 60 4RF cholecalciferol (vitamin D3) 1,250 mcg (50,000 unit) capsule 1,250 mcg PO QWEEK Qty: 4 4RF metoprolol succinate 100 mg tablet extended release 24 hr 100 mg PO DAILY Label Comments: take 1 tablet by mouth once daily hydrochlorothiazide 25 mg tablet 25 mg PO DAILY Label Comments: take 1 tablet by mouth once daily Latuda 40 mg Tablet 40 mg PO DAILY cetirizine [Zyrtec] 10 mg Tablet 10 mg PO DAILY Other Ambulatory Orders: Venous Duplex US - Arturo Extrem (Stat) Facility: [facility] - Location: [facility] Ordered By: Dr. Trey Castanon Primary Care Provider: Allyssa Love Referrals: [facility] Allyssa Funk [Primary Care Provider] - 3-5 Days Activity Restrictions/Additional Instructions: Your creatinine 2.04 today up from 1.7 however your range is 1.4-1.8. You are given IV fluids. Have this rechecked by your doctor as an outpatient. Potassium 3.0. Take potassium replacement as prescribed. Return for ultrasounds of the legs tomorrow. Blood pressure elevated continue your medications at home. Check your blood pressure and follow-up with your PCP. Disposition Disposition: Home, Self Care
[2022-04-25 22:46] VITALS: BP 204/143; PULSE 82; RESP 16; O2SAT 96
[2022-04-25 22:47] LABS: Anion Gap 9 (5-15); BUN 29 mg/dL (7-18); BUN/Creat Ratio 14.2 RATIO (10-20); Calcium,Total 9.2 mg/dL (8.5-10.1); Chloride 105 mmol/L (98-107); Creatinine, Serum 2.04 mg/dL (0.70-1.30); EST Glomerular Filtration Rate 39 mL/min (>60); Est Glom Filt Rate - Afr Amer 47 mL/min (>60); Glucose 129 mg/dL (74-106); Sodium Level 139 mmol/L (136-145)
[2022-04-25 23:04] LABS: Bacteria 0 SEEN /hpf (None Seen); Mucous, Urine 0 SEEN /hpf (<or=2+)
[2022-04-25] MEDS: 0.9% Normal Saline 1,000 ML 999 ML IV (23:08)
[2022-04-25 23:14] LABS: Color, Urine Yellow (Yellow); Glucose, Dipstick Normal (Normal); Ketone-Dipstick Negative (Negative); Leukocyte Esterase-Dipstick Negative /ul (Negative); Nitrite-Dipstick Negative (Negative); Occult Blood-Urine 25 /ul (Negative); Protein-Dipstick 100 mg/dl (Negative); Urine Bilirubin Dipstick Negative (Negative); Urine Clarity Sl. Cloudy (Clear); Urine Urobilinogen Normal (Normal)
[2022-04-25] MEDS: Potassium Chloride Oral Tablet 20 MEQ 40 MEQ PO (23:15)
[2022-04-25 23:21] LABS: White Blood Cells 0-5 SEEN /hpf (0-5)
[2022-04-25 23:22] LABS: Amorphous Sediment 1+ URATE; Red Blood Cells-Urine 0-5 SEEN /hpf (0-5); Squamous Epithelial Cells - UA 0-5 SEEN /hpf (0-5)
[2022-04-25] MEDS: cloNIDine HCl 0.2 MG Tablet PO (23:50)
[2022-04-25 23:55] VITALS: BP 204/142
[2022-04-26 00:10] VITALS: BP 229/146; PULSE 80; RESP 18; O2SAT 100
== END 2022-04-26 00:48 | disposition home or self-care (01) ==
PROVIDERS: Emergency Provider Emergency Medicine; Visit Provider Emergency Medicine
DX: R60.0 Localized edema (principal); E11.22 Type 2 diabetes mellitus with diabetic chronic kidney disease; I12.9 Hypertensive chronic kidney disease with stage 1 through stage 4 chronic kidney disease, or unspecified chronic kidney disease; E87.6 Hypokalemia; N18.9 Chronic kidney disease, unspecified; M19.90 Unspecified osteoarthritis, unspecified site; J45.909 Unspecified asthma, uncomplicated; Z87.891 Personal history of nicotine dependence; Z79.899 Other long term (current) drug therapy
CPT/HCPCS: 80048; 81001; 85025; 96360; 99284; J7030; A4216

== ENCOUNTER → 2022-04-27 | Outpatient (CLI) | payer MEDICARE, MEDICAID, SELFPAY ==
--- NOTE | 2022-04-27 10:39 | VDLE_ITS ---
Reason For Study: swelling RIGHT LEFT GSV is normal. GSV is normal. CFV is compressible, spontaneous, phasic, CFV is compressible, spontaneous, phasic, competent and demonstrates normal competent, and demonstrates normal augmentation. augmentation. FV is compressible, spontaneous, phasic, FV is compressible, spontaneous, phasic, competent and demonstrates normal competent and demonstrates normal augmentation. augmentation. POP V is compressible, spontaneous, phasic, POP V is compressible, spontaneous, phasic, competent and demonstrates normal competent and demonstrates normal augmentation. augmentation. T/P Trunk is compressible. T/P Trunk is compressible. PTV is compressible. PTV is compressible. RT PerV is compressible. LT PerV is compressible. Procedure This is a venous duplex using B-mode, color flow and spectral Doppler. Exam performed in department. The exam was diagnostic. VL/Venous Duplex US - Arturo Extrem Interpretation Summary Deep veins of the lower extremities are bilaterally patent and compressible seg mentally. There is no evidence of deep vein thrombosis on either side. Valvular competence appears in tact within the proximal deep venous systems bilaterally. The great saphenous veins appear bila terally patent and compressible segmentally. Ordering Physician: Trey Castanon Performed By: Griffin Cisneros RVT
== END | disposition home or self-care (01) ==
LOC: CVS 10:33
PROVIDERS: Visit Provider Emergency Medicine
DX: R60.0 Localized edema (principal); M79.89 Other specified soft tissue disorders
CPT/HCPCS: 93970